=== PATIENT | female | born 1950 | race African-American/Black ===

== ENCOUNTER 2019-10-01 11:55 | Outpatient (CLI) | payer MEDICARE, OTHER, SELFPAY ==
[2019-10-01 12:47] LABS: Basophils Percent Auto 0.1 % (0.2-1.2); Eosinophils Absolute Auto 0.1 K/mm3 (0-0.3); Eosinophils Percent Auto 1.5 % (0-4.4); Hematocrit 41.1 % (37.0-47.0); Hemoglobin 13.1 g/dL (12.0-15.0); Immature Granulocyte Absolute 0.04 K/mm3 (0.00-0.031); Immature Granulocyte Percent A 0.6 % (0-0.5); Lymphocytes Absolute Auto 2.25 K/mm3 (0.9-3.2); Lymphocytes Percent Auto 33.6 % (18.3-44.2); Mean Corpuscular HGB Conc 31.9 g/dl (32-36); Mean Corpuscular Hemoglobin 27.7 pg (26-34); Mean Corpuscular Volume 86.9 fl (80-100); Monocytes Absolute Auto 0.6 K/mm3 (0.1-0.6); Monocytes Percent Auto 9.4 % (2.6-8.5); Neutrophils Absolute Auto 3.7 K/mm3 (1.3-6.7); Neutrophils Percent Auto 54.8 % (45.5-73.1); Platelet Count Result 315 k/mm3 (150-375); Red Blood Count 4.73 M/mm3 (4.2-5.4); Red Cell Distribution Width 13.8 % (11.5-14.5); White Blood Count 6.7 K/mm3 (4.5-10.0)
[2019-10-01 13:00] LABS: Alanine Aminotransferase 12 U/L (4-35); Albumin Level 4.4 g/dL (3.5-5.1); Alkaline Phosphatase 81 U/L (38-126); Aspartate Amino Transferase 20 U/L (14-36); Bilirubin,Total 0.5 mg/dL (0.2-1.3); Blood Urea Nitrogen 14 mg/dL (7-17); Calcium 9.4 mg/dL (8.4-10.2); Carbon Dioxide 29 mmol/L (22-30); Chloride 103 mmol/L (98-107); Cholesterol 249 mg/dL (0-200); Estimated Glomerular Filt Rate > 60; Glucose 97 mg/dL (65-105); HDL Direct 49 mg/dL; Potassium 3.1 mmol/L (3.4-5.0); Sodium 138 mmol/L (137-145); Triglycerides 146 mg/dL (<150)
[2019-10-01 13:11] LABS: LDL Cholesterol Direct 139 mg/dL
== END 2019-10-01 11:56 | disposition home or self-care (01) ==
PROVIDERS: PCP Family Medicine; Visit Provider Family Medicine
DX: I10 Essential (primary) hypertension (principal); E78.5 Hyperlipidemia, unspecified; D64.9 Anemia, unspecified; R53.83 Other fatigue; N39.0 Urinary tract infection, site not specified
CPT/HCPCS: 36415; 80053; 80061; 82607; 84443; 85025

== ENCOUNTER 2019-11-23 09:30 | Outpatient (CLI) | payer MEDICARE, OTHER, SELFPAY ==
--- NOTE | ~2019-11-23 | US_ITS ---
US abdomen complete EXAMINATION: US Abdomen Complete INDICATION: Generalized abdominal pain PROCEDURE: Realtime High Resolution abdomen ultrasound. COMPARISON: No prior studies for comparison FINDINGS: Gallbladder surgically absent. Common bile duct measures 5 mm. Liver echotexture within normal limits without focal mass. Pancreas within normal limits. Pancreati c tail is obscured by bowel gas. Spleen is not visualized due to bowel. Renal echotexture is within normal limits bilaterally without hydronephrosis, contour deforming mass or renal stone. Right kidney measures 9 cm. Left kidney measures 9 cm. Visualized aspects of the aorta and IVC are within normal limits. Portal vein is patent. No sonograph ic De La Torre's sign indicated by the technologist. IMPRESSION: 1: Unremarkable abdominal ultrasound post cholecystectomy. Reviewed, dictated and finalized at location A.
== END 2019-11-23 09:31 | disposition home or self-care (01) ==
LOC: ANHIMG 09:32
PROVIDERS: PCP Family Medicine; Visit Provider Family Medicine
DX: R10.30 Lower abdominal pain, unspecified (principal)
CPT/HCPCS: 76700

== ENCOUNTER 2019-12-23 01:50 | Outpatient (CLI) | payer MEDICARE, OTHER, SELFPAY ==
[2019-12-23 18:20] LABS: SARS-CoV-2 RNA PCR Negative
== END 2019-12-23 01:51 | disposition home or self-care (01) ==
LOC: ANHCOVIDDT 01:51
PROVIDERS: PCP Family Medicine; Visit Provider Internal Medicine Gastroenterology
DX: Z01.812 Encounter for preprocedural laboratory examination (principal); Z11.59 Encounter for screening for other viral diseases
CPT/HCPCS: 87635; C9803; U0003

== ENCOUNTER 2019-12-25 01:33 | Day surgery (SDC) | payer MEDICARE, OTHER, SELFPAY ==
[2019-12-18 11:44] VITALS: BMI 35.6
[2019-12-25 07:00] VITALS: BP 122/75; PULSE 83; RESP 18; TEMP 36.7; O2SAT 99
--- NOTE | 2019-12-25 07:17 | ECG_ITS ---
Measurements Intervals [place] Rate: 84 P: 63 IN: 158 QRS: -13 QRSD: 97 T: 23 QT: 387 QTc: 459 Interpretive Statements SINUS RHYTHM SUPRAVENTRICULAR TRIGEMINY QRS MORPHOLOGY CHANGES- NARROW COMPLEX AND RBBB VOLTAGE CRITERIA FOR LVH BASELINE ARTIFACT- I, III, AVR, AVL, AVF, V2 ABNORMAL ECG Electronically Signed On 12-25-2019 8:07:09 CDT by Ronaldo Rehman D.O.
[2019-12-25] MEDS: LACTATED RINGERS 1,000 ML 150 ML IV CONT (07:32)
--- NOTE | 2019-12-25 08:03 | WPDANESEPPF ---
Anes - Initial Pre Proc Eval Procedure: Operation Date: 12/25/19 08:30 Proposed Procedures p Esophagogastroduodenoscopy - Estuardo Bates MD Date/Time: 12/25/19 08:03 Surgeon: Estuardo Bates MD Pre Op Diagnosis: Epigastric pain, Gerd Patient Data Age: 69 Gender: F Height: 5 ft 5 in Weight: 99.8 kg Last Vital Signs Temp 98.1 F 12/25/19 07:00 Pulse 83 12/25/19 07:00 Resp 18 12/25/19 07:00 BP 122/75 12/25/19 07:00 Pulse Ox 99 12/25/19 07:00 Allergies Allergy/AdvReac Type Severity Reaction Status Date / Time Obzrddn-Ouz-Crk Reductase Allergy Unknown Unknown Verified 12/25/19 07:02 Inhibitor Home Medications Medication Instructions Recorded Confirmed Type aspirin 81 mg tablet,delayed 81 mg PO DAILY 04/01/19 12/25/19 History release cyanocobalamin (vitamin B-12) 1,000 mcg SUB-Q MONTHLY 04/01/19 12/25/19 History 1,000 mcg/mL injection solution losartan 100 1 tablet PO DAILY #90 tablet 04/04/19 12/25/19 Rx mg-hydrochlorothiazide 25 mg tablet pantoprazole 40 mg tablet,delayed 40 mg PO QAM #30 tablet 09/16/19 12/25/19 Rx release metoprolol succinate 25 mg 25 mg PO DAILY #90 tablet 10/01/19 12/25/19 Rx tablet,extended release 24 hr Patient hx anesthesia problems: none Family hx anesthesia problems: none PMFSH Past Medical History Medical History (Updated 12/25/19 @ 08:03 by Steve Duffy MD) Epigastric pain HLD (hyperlipidemia) Premature ventricular complex Vitamin B12 deficiency Surgical History Surgical History History of cholecystectomy Status post hysterectomy with oophorectomy Social History Social History (Updated 12/06/19 @ 08:51 by Anitha Gonzalez) Smoking status: Never smoker Second hand tobacco smoke exposure: No Smoking end date: 05/15/84 Alcohol intake: current Substance use: never Substance use type: does not use Gender identity (if verbalized by the patient): Female Sexual Orientation (if Verbalized by the Patient): Straight or Heterosexual Anes - Eval Final PreProcedure Day of Procedure 12/25/19 08:03 Patient weight: obese Heart: regular rate and rhythm Lungs: clear to auscultation Airway: Mallampati scale class II Neurological: alert and oriented Last oral intake: >/= 8 hours ASA classification: III Emergent: no Anesthetic plan: proceed Anesthesia type and monitoring: general GIVS and standard monitoring Informed Consent: The patient's anesthetic plan and its attendant risks and benefits were discussed with the patient/family/POA. Questions were solicited and answers provided to the satisfaction of the patient/family/POA.
--- NOTE | 2019-12-25 08:31 | P.HP_ITS ---
History of Present Illness History of Present Illness Consent: Risks, benefits, and alternatives have been discussed and questions answered. Patient agrees to proceed with procedure. Chief complaint: Epigastric pain, Gerd Narrative: Leonarda Jean is a 69 year old female With postprandial pains in the lower chest bilaterally. She had been on medication for acid reflux for many years but quit it due to concerns about possible long-term side effects. Recently she was placed on pantoprazole and feels a bit better. She had test for H pylori which was negative, however she was on PPI at that time. [facility] Past Medical History Medical History Epigastric pain HLD (hyperlipidemia) Premature ventricular complex Vitamin B12 deficiency Surgical History Surgical History History of cholecystectomy Status post hysterectomy with oophorectomy Family History Family History Father Family history of coronary artery disease Grandparent Family history of lung cancer Mother Patient's mother is in good health Other Diabetes mellitus Family history of cardiovascular disease Family history of malignant neoplasm Family history of malignant neoplasm of breast Social History Social History Smoking status: Never smoker Second hand tobacco smoke exposure: No Smoking end date: 05/15/84 Alcohol intake: current Substance use: never Substance use type: does not use Gender identity (if verbalized by the patient): Female Sexual Orientation (if Verbalized by the Patient): Straight or Heterosexual Meds Home Medications and Allergies Home Medications Medication Instructions Recorded Confirmed Type aspirin 81 mg tablet,delayed 81 mg PO DAILY 04/01/19 12/25/19 History release cyanocobalamin (vitamin B-12) 1,000 mcg SUB-Q MONTHLY 04/01/19 12/25/19 History 1,000 mcg/mL injection solution losartan 100 1 tablet PO DAILY #90 tablet 04/04/19 12/25/19 Rx mg-hydrochlorothiazide 25 mg tablet pantoprazole 40 mg tablet,delayed 40 mg PO QAM #30 tablet 09/16/19 12/25/19 Rx release metoprolol succinate 25 mg 25 mg PO DAILY #90 tablet 10/01/19 12/25/19 Rx tablet,extended release 24 hr Allergies Allergy/AdvReac Type Severity Reaction Status Date / Time Jtvhgav-Mxi-Bsi Reductase Allergy Unknown Unknown Verified 12/25/19 07:02 Inhibitor Vital Signs Vital Signs - 24 hr 12/25/19 07:00 Temperature 36.7 C Pulse Rate 83 Respiratory Rate 18 Blood Pressure 122/75 Pulse Oximetry 99 Exam Const: General: alert Orientation/consciousness: patient oriented x3 Resp: Auscultation: clear to auscultation bilaterally Cardio: Rhythm: regular rhythm GI: GI Palp: Yes Soft to palpation and No Tenderness to palpation present (GI) Neuro: General: patient oriented x3 Assessment and Plan Assessment and plan (1) Epigastric pain: Code(s): R10.13 - Epigastric pain Status: Acute Assessment and Plan: EGD with possible biopsy or dilatation or cautery.
[2019-12-25] MEDS: BENZOCAINE (*SP) 60 ML SPRAY CAN (HURRICAINE) 1 SPRAY MUCOUS MEM (08:43)
[2019-12-25 09:00] VITALS: BP 99/51; PULSE 57; RESP 18; O2SAT 98
[2019-12-25 09:10] VITALS: BP 107/65; PULSE 80; RESP 16; O2SAT 97
[2019-12-25 09:20] VITALS: BP 93/58; PULSE 64; RESP 18; O2SAT 96
== END 2019-12-25 09:44 | disposition home or self-care (01) ==
PROVIDERS: PCP Family Medicine; Visit Provider Internal Medicine Gastroenterology
PROC: 0DJ08ZZ Inspection of Upper Intestinal Tract, Via Natural or Artificial Opening Endoscopic (ICD-10-PCS; CPT 43235; principal; 2019-12-25 08:30)
DX: K21.9 Gastro-esophageal reflux disease without esophagitis (principal); K31.7 Polyp of stomach and duodenum; E78.5 Hyperlipidemia, unspecified; I49.3 Ventricular premature depolarization; E53.8 Deficiency of other specified B group vitamins; Z79.82 Long term (current) use of aspirin
CPT/HCPCS: 43235; 93005; J2704; J7120

== ENCOUNTER 2020-04-22 09:15 | Outpatient (CLI) | payer MEDICARE, OTHER, SELFPAY ==
[2020-04-22 09:46] LABS: Alanine Aminotransferase 16 U/L (4-35); Albumin Level 4.3 g/dL (3.5-5.1); Alkaline Phosphatase 91 U/L (38-126); Anion Gap 6 mmol/L (8-16); Aspartate Amino Transferase 27 U/L (14-36); Bilirubin,Total 0.4 mg/dL (0.2-1.3); Blood Urea Nitrogen 20 mg/dL (7-17); Calcium 9.7 mg/dL (8.4-10.2); Carbon Dioxide 32 mmol/L (22-30); Chloride 101 mmol/L (98-107); Estimated Glomerular Filt Rate > 60; Glucose 107 mg/dL (65-105); Potassium 3.3 mmol/L (3.4-5.0); Sodium 139 mmol/L (137-145)
[2020-04-22 10:15] LABS: Vitamin D 25 Hydroxy 43.8 ng/mL
[2020-04-22 10:51] LABS: Folic Acid 8.9 ng/mL (2.76->20)
== END 2020-04-22 09:16 | disposition home or self-care (01) ==
PROVIDERS: PCP Family Medicine; Visit Provider Physician Assistant
DX: E53.8 Deficiency of other specified B group vitamins (principal); E55.9 Vitamin D deficiency, unspecified; I10 Essential (primary) hypertension
CPT/HCPCS: 36415; 80053; 82306; 82607; 82746

== ENCOUNTER 2020-06-06 08:00 | Outpatient (CLI) | payer MEDICARE, SELFPAY ==
--- NOTE | ~2020-06-06 | MM_ITS ---
EXAMINATION: MM screening zoya BI w kevon HISTORY: Screening TECHNIQUE: Craniocaudal and mediolateral oblique 3-D tomosynthesis images were obtained and synthetic 2-D images were generated. CAD analysis was submitted and interpreted. COMPARISON: Comparison to multiple prior studies sequentially, with oldest reviewed study dated 02/06. BREAST PARENCHYMAL COMPOSITION: There are scattered areas of fibroglandular density. FINDINGS: Bilateral breast asymmetries are stable. There is no evidence of suspicious mass, calcifica tion, or architectural distortion to suggest malignancy in either breast. There has been no suspiciou s interval change. IMPRESSION: 1. No mammographic evidence of malignancy. 2. Recommend routine screening mammography in one year. BI-RADS Category 2: Benign finding(s). Reviewed, dictated and finalized at location A. DRILLER HELPER
== END 2020-06-06 08:01 | disposition home or self-care (01) ==
LOC: ANHIMG 08:06
PROVIDERS: PCP Family Medicine; Visit Provider Obstetrics & Gynecology
DX: Z12.31 Encounter for screening mammogram for malignant neoplasm of breast (principal)
CPT/HCPCS: 77063; 77067

== ENCOUNTER 2020-10-31 10:41 | Outpatient (CLI) | payer MEDICARE, SELFPAY ==
[2020-10-31 12:31] LABS: Hematocrit 40.1 % (37.0-47.0); Hemoglobin 12.7 g/dL (12.0-15.0); Mean Corpuscular HGB Conc 31.7 g/dl (32-36); Mean Corpuscular Hemoglobin 27.8 pg (26-34); Mean Corpuscular Volume 87.7 fl (80-100); Mean Platelet Volume 9.8 fl (7.4-10.4); Platelet Count Result 329 k/mm3 (150-375); Red Blood Count 4.57 M/mm3 (4.2-5.4); Red Cell Distribution Width 13.8 % (11.5-14.5); White Blood Count 6.9 K/mm3 (4.5-10.0)
[2020-10-31 12:46] LABS: Alanine Aminotransferase 11 U/L (4-35); Albumin Level 4.3 g/dL (3.5-5.1); Alkaline Phosphatase 76 U/L (38-126); Anion Gap 6 mmol/L (8-16); Aspartate Amino Transferase 29 U/L (14-36); Bilirubin,Total 0.4 mg/dL (0.2-1.3); Blood Urea Nitrogen 14 mg/dL (7-17); Calcium 9.6 mg/dL (8.4-10.2); Carbon Dioxide 31 mmol/L (22-30); Chloride 104 mmol/L (98-107); Cholesterol 230 mg/dL (0-200); Estimated Glomerular Filt Rate > 60; Glucose 94 mg/dL (65-105); HDL Direct 51 mg/dL; Potassium 3.4 mmol/L (3.4-5.0); Sodium 141 mmol/L (137-145); Triglycerides 112 mg/dL (<150)
[2020-10-31 12:56] LABS: LDL Cholesterol Direct 114 mg/dL
[2020-10-31 13:48] LABS: Folic Acid 11.3 ng/mL (2.76->20)
== END 2020-10-31 10:42 | disposition home or self-care (01) ==
LOC: ANHLAB 10:47
PROVIDERS: PCP Family Medicine; Visit Provider Family Medicine
DX: I10 Essential (primary) hypertension (principal); E78.2 Mixed hyperlipidemia; E53.8 Deficiency of other specified B group vitamins; R53.83 Other fatigue
CPT/HCPCS: 36415; 80053; 80061; 82607; 82746; 84443; 85027

== ENCOUNTER 2020-11-03 09:58 | Outpatient (CLI) | payer MEDICARE, SELFPAY ==
[2020-11-03 10:45] LABS: Add Urine Microscopic? YES; Appearance Urine Clear (Clear); Bilirubin Urine Negative (Negative); Blood Urine Negative (Negative); Color Urine Yellow (Yellow); Glucose Urine UA Negative (Negative); Ketones Urine Negative (Negative); Leukocyte Esterase Ur Trace LEU/UL (NEGATIVE); Mucus Urine Few /lpf; Nitrate Urine Negative (Negative); Protein Urine 1+ mg/dL (Negative); Specific Grav Ur 1.021 (1.001-1.035); Squamous Epithelial Cell Urine Few /hpf (Few); Urobilinogen Urine Negative mg/dL (<2.0)
[2020-11-06 09:38] LABS: Vitamin D 1,25 (OH)2 Total 49 pg/mL (18-72); Vitamin D2 1,25 (OH)2 9 pg/mL; Vitamin D3 1,25 (OH)2 40 pg/mL
== END 2020-11-03 09:59 | disposition home or self-care (01) ==
PROVIDERS: PCP Family Medicine; Visit Provider Family Medicine
DX: E55.9 Vitamin D deficiency, unspecified (principal); E78.2 Mixed hyperlipidemia; E53.8 Deficiency of other specified B group vitamins; R53.83 Other fatigue; I10 Essential (primary) hypertension
CPT/HCPCS: 36415; 81001; 82652

== ENCOUNTER 2021-05-12 10:41 | Outpatient (CLI) | payer MEDICARE, SELFPAY ==
[2021-05-12 11:41] LABS: Alanine Aminotransferase 13 U/L (4-35); Albumin Level 4.2 g/dL (3.5-5.1); Alkaline Phosphatase 84 U/L (38-126); Anion Gap 5 mmol/L (8-16); Aspartate Amino Transferase 23 U/L (14-36); Bilirubin,Total 0.4 mg/dL (0.2-1.3); Blood Urea Nitrogen 17 mg/dL (7-17); Calcium 9.4 mg/dL (8.4-10.2); Carbon Dioxide 31 mmol/L (22-30); Chloride 103 mmol/L (98-107); Estimated Glomerular Filt Rate > 60; Glucose 101 mg/dL (65-110); Potassium 3.6 mmol/L (3.4-5.0); Sodium 139 mmol/L (137-145)
[2021-05-12 12:44] LABS: Folic Acid 13.6 ng/mL (2.76->20)
== END 2021-05-12 10:42 | disposition home or self-care (01) ==
PROVIDERS: PCP Family Medicine; Visit Provider Family Medicine
DX: E53.8 Deficiency of other specified B group vitamins (principal); I10 Essential (primary) hypertension
CPT/HCPCS: 36415; 80053; 82607; 82746

== ENCOUNTER 2021-09-30 10:23 | Outpatient (CLI) | payer MEDICARE, SELFPAY ==
[2021-09-30 10:45] LABS: Hematocrit 40.2 % (37.0-47.0); Hemoglobin 12.9 g/dL (12.0-15.0); Mean Corpuscular HGB Conc 32.1 g/dl (32-36); Mean Corpuscular Hemoglobin 28.1 pg (26-34); Mean Corpuscular Volume 87.6 fl (80-100); Mean Platelet Volume 9.3 fl (7.4-10.4); Platelet Count Result 315 k/mm3 (150-375); Red Blood Count 4.59 M/mm3 (4.2-5.4); Red Cell Distribution Width 14.2 % (11.5-14.5); White Blood Count 8.3 K/mm3 (4.5-10.0)
[2021-09-30 10:52] LABS: Appearance Urine Cloudy (Clear); Bilirubin Urine Negative (Negative); Blood Urine 1+ (Negative); Color Urine Yellow (Yellow); Glucose Urine UA Negative (Negative); Ketones Urine Negative (Negative); Leukocyte Esterase Ur 2+ LEU/UL (NEGATIVE); Nitrate Urine Positive (Negative); Protein Urine Negative (Negative); Specific Grav Ur 1.015 (1.001-1.035); Urobilinogen Urine 0.2 mg/dL (<2.0)
[2021-09-30 10:57] LABS: Bacteria Urine Trace /hpf; Budding Yeast Urine Present /hpf; Mucus Urine Rare /lpf; Squamous Epithelial Cell Urine Few /hpf (Few); WBC Clumps Urine Present /HPF; WBC Urine >75 /hpf (0-3)
[2021-09-30 10:58] LABS: Add Urine Microscopic? YES
[2021-09-30 11:18] LABS: Alanine Aminotransferase 10 U/L (6-35); Albumin Level 4.3 g/dL (3.5-5.1); Alkaline Phosphatase 97 U/L (38-126); Anion Gap 9 mmol/L (8-16); Aspartate Amino Transferase 21 U/L (14-36); Bilirubin,Total 0.4 mg/dL (0.2-1.3); Blood Urea Nitrogen 14 mg/dL (7-17); Calcium 9.1 mg/dL (8.4-10.2); Carbon Dioxide 27 mmol/L (22-30); Chloride 102 mmol/L (98-107); Cholesterol 226 mg/dL (0-200); Estimated Glomerular Filt Rate > 60; Glucose 103 mg/dL (65-110); HDL Direct 54 mg/dL; Potassium 3.4 mmol/L (3.4-5.0); Sodium 138 mmol/L (137-145); Triglycerides 96 mg/dL (<150)
[2021-09-30 11:22] LABS: LDL Cholesterol Direct 107 mg/dL
[2021-09-30 12:17] LABS: Folic Acid 13.7 ng/mL (2.76->20)
== END 2021-09-30 10:24 | disposition home or self-care (01) ==
PROVIDERS: PCP Family Medicine; Visit Provider Family Medicine
DX: E78.5 Hyperlipidemia, unspecified (principal); I10 Essential (primary) hypertension; E53.8 Deficiency of other specified B group vitamins; Z00.00 Encounter for general adult medical examination without abnormal findings; E55.9 Vitamin D deficiency, unspecified
CPT/HCPCS: 36415; 80053; 80061; 81001; 82607; 82746; 84443; 85027

== ENCOUNTER 2022-01-27 08:48 | Outpatient (CLI) | payer MEDICARE, SELFPAY ==
--- NOTE | ~2022-01-27 | MM_ITS ---
EXAMINATION: MM screening zoya BI w kevon HISTORY: Screening mammogram TECHNIQUE: Craniocaudal and mediolateral oblique 3-D tomosynthesis images were obtained and synthetic 2-D images were generated. CAD analysis was submitted and interpreted. COMPARISON: 06/06/2020, 05/04/2018, 05/12/2016 bilateral screening mammogram examinations BREAST PARENCHYMAL COMPOSITION: There are scattered areas of fibroglandular density. FINDINGS: A limited benign-appearing calcification. There is no evidence of suspicious mass, calcific ation, or architectural distortion to suggest malignancy in either breast. There has been no suspicio us interval change. IMPRESSION: 1. No mammographic evidence of malignancy. 2. Recommend routine screening mammography in one year. BI-RADS Category 2: Benign finding(s). Reviewed, dictated and finalized at location A.
--- NOTE | ~2022-01-27 | DEXA_ITS ---
Bone Density Report Name: ELIZABETH SHORE V Age: 71 Sex: Female Ethnicity: Black Date of : 1950 Indication: postmenopausal; screening for osteoporosis; prior fracture; hysterectomy; Referring Provider: ROBIN VAZQUEZ Study: Bone densitometry was performed. Exam Date: January 27, 2022 Accession number: [id number] Bone Density: Region BMD T-score Z-score Classification AP Spine(L1-L4) 1.162 1.0 2.4 Normal Femoral Neck (Left) 0.784 -0.6 0.2 Normal Total Hip (Left) 0.827 -0.9 -0.2 Normal Femoral Neck (Right) 0.767 -0.7 0.1 Normal Total Hip (Right) 0.798 -1.2 -0.4 Osteopenia Total Hip Mean 0.813 -1.1 -0.3 Osteopenia World Health Organization criteria for BMD impression classify patients as: Normal (T-score at or above -1.0), Osteopenia (T-score between -1.0 and -2.5), or Osteoporosis (T-score at or below -2.5). 10-year Fracture Risk(1): Major Osteoporotic Fracture 5.6% Hip Fracture 0.4% Reported Risk Factors: [place] ([place]), Neck BMD=0.767, BMI=35.3, previous fracture (1) FRAX(R) Version 3.08. Fracture probability calculated for an untreated patient. Fracture probability may be lower if the patient has received treatment. Previous Exams: Region Exam Age BMD T-score BMD Change BMD Change Date g/cm2 vs Baseline vs Previous AP Spine (L1-L4) 01/27/2022 71 1.162 1.0 0.002 (0.2%)# -0.059 (-4.8%) 11/02/2018 68 1.220 1.6 0.061 (5.3%)# 0.065 (5.6%)* 05/12/2016 65 1.156 1.0 -0.004 (-0.3%) -0.004 (-0.3%) 12/04/2013 63 1.159 1.0 Total Hip(Left) 01/27/2022 71 0.827 -0.9 -0.101 (-10.8% -0.053 (-6.1%) 11/02/2018 68 0.881 -0.5 -0.047 (-5.1%) -0.017 (-1.9%) 05/12/2016 65 0.898 -0.4 -0.030 (-3.3%) -0.030 (-3.3%) 12/04/2013 63 0.928 -0.1 Total Hip(Right) 01/27/2022 71 0.798 -1.2 -0.095 (-10.6% -0.116 (-12.6% 11/02/2018 68 0.914 -0.2 0.020 (2.3%)# 0.001 (0.1%) 05/12/2016 65 0.913 -0.2 0.019 (2.1%)# 0.019 (2.1%)# 12/04/2013 63 0.894 -0.4 *Denotes significance at 95% confidence level, LSC for AP Spine = 0.022 g/cm2, LSC for Total Hip = 0.027 g/cm2 # Denotes dissimilar scan types or analysis methods Clinical Information Provided by Patient: Has had a low trauma fracture Has used the following medications: Vitamin D Has the following medical conditions: Hysterectomy Patient maximum height was 65 No regular weight bearing exercise Onset of menses at age 18 Number of children 0
== END 2022-01-27 08:49 | disposition home or self-care (01) ==
PROVIDERS: PCP Family Medicine; Visit Provider Obstetrics & Gynecology
DX: Z12.31 Encounter for screening mammogram for malignant neoplasm of breast (principal); Z78.0 Asymptomatic menopausal state; M85.851 Other specified disorders of bone density and structure, right thigh
CPT/HCPCS: 77063; 77067; 77080

== ENCOUNTER 2022-03-10 08:43 | Outpatient (CLI) | payer MEDICARE, SELFPAY ==
--- NOTE | ~2022-03-10 | NM_ITS ---
EXAMINATION: NM edis stress w perfusion DATE: 03/10/2022 13:01 CDT INDICATION: Preprocedural cardiovascular examination TECHNIQUE: Rest images were obtained following intravenous administration of 9.8 mCi Tc99m tetrofosmi n (Myoview). The patient was infused intravenously with Lexiscan (regadenoson). Then, 32 mCi Tc99m te trofosmin (Myoview) was administered intravenously, and stress images were obtained. Data was reconst ructed into short axis and horizontal and vertical long axis SPECT images. Gated SPECT images were al so obtained. COMPARISON: None. FINDINGS: There is no definite reversible or fixed perfusion abnormality to suggest ischemia or infar ction. There is no segmental wall motion abnormality. Left ventricular ejection fraction measures 7 3%. IMPRESSION: 1. No definite ischemia or infarct. 2. Normal left ventricular ejection fraction measuring 73%. Reviewed, dictated and finalized at location B.
--- NOTE | 2022-03-10 08:47 | EST_ITS ---
Patient Info Name: Leonarda Jean Age: 71 years : 1950 Gender: Female Ht: 64 in Wt: 210 lbs BSA: 2.12 m2 Exam Date: 03/10/2022 10:19 AM Exam Location: [facility] Stress Patient Status: Outpatient Admit Date: 03/10/2022 Staff Ordering Physician: Ronaldo Rehman DO Attending Provider: Ronaldo Rehman DO Exercise Technologist: Ness Wesley RDCS Exercise Physician: Ronaldo Rehman DO Exam Type: CA stress edis w NM Study Info Indications Z01.810 - Encounter for preprocedural cardiovascular examination A regadenoson stress test was performed. Summary 1. 1. Negative lexiscan stress test for ischemic ST changes by ECG criteria. 2. 2. Stable hemodynamics throughout the test. 3. 3. Nuclear scan to follow and will be reported separately. Please correlate with it. 4. 4. Patient informed of the above results. Protocol: Lexiscan Stress ECG Details Stage: REST Duration (min): 0 min : 11 sec HR (bpm): 56 SBP (mmHg): --- DBP (mmHg): --- Stage: REST Duration (min): 1 min : 17 sec HR (bpm): 65 SBP (mmHg): 115 DBP (mmHg): 91 Stage: REST Duration (min): 5 min : 46 sec HR (bpm): 62 SBP (mmHg): 115 DBP (mmHg): 91 Stage: STAGE 1 Duration (min): 0 min : 59 sec HR (bpm): 86 SBP (mmHg): 94 DBP (mmHg): 65 Stage: RECOVERY Duration (min): 1 min : 0 sec HR (bpm): 90 SBP (mmHg): 96 DBP (mmHg): 62 Stage: RECOVERY Duration (min): 2 min : 0 sec HR (bpm): 89 SBP (mmHg): 96 DBP (mmHg): 62 Stage: RECOVERY Duration (min): 3 min : 0 sec HR (bpm): 86 SBP (mmHg): 99 DBP (mmHg): 62 Stage: RECOVERY Duration (min): 4 min : 0 sec HR (bpm): 89 SBP (mmHg): 99 DBP (mmHg): 62 Stage: RECOVERY Duration (min): 5 min : 0 sec HR (bpm): 88 SBP (mmHg): 100 DBP (mmHg): 64 Stage: RECOVERY Duration (min): 6 min : 0 sec HR (bpm): 84 SBP (mmHg): 100 DBP (mmHg): 64 Stage: RECOVERY Duration (min): 7 min : 0 sec HR (bpm): 82 SBP (mmHg): 112 DBP (mmHg): 65 Stage: RECOVERY Duration (min): 7 min : 3 sec HR (bpm): 81 SBP (mmHg): 112 DBP (mmHg): 65 Rest HR: 62 bpm Peak HR: 92 bpm Rest Sys BP: 115 mmHg Peak Sys BP: 112 mmHg Max Pred HR: 151 bpm % Max Pred HR: 61 % Target HR: 128 bpm Max RPP: 10,304 bpm*mmHg Termination Reason: Completed protocol Cardiac Symptoms: Flushed Total Time: 1 min : 0 sec Rest Quinones BP: 91 mmHg Peak Quinones BP: 65 mmHg Total Dose: 0.4 mg Resting ECG Sinus rhythm. Stress ECG No ST changes. Arrhythmias None. Report Signatures
== END 2022-03-10 08:44 | disposition home or self-care (01) ==
PROVIDERS: PCP Family Medicine; Visit Provider Internal Medicine Cardiovascular Disease
DX: Z01.810 Encounter for preprocedural cardiovascular examination (principal)
CPT/HCPCS: 78452; 93017; A9502; J2785

== ENCOUNTER 2022-03-14 07:42 | Outpatient (CLI) | payer MEDICARE, SELFPAY ==
--- NOTE | 2022-03-28 12:23 | WPDSLEEPSTUD ---
Sleep Study Date of Study: 03/14/22 Ordering Provider: Ronaldo Rehman DO Interpreting Physician: Nicolasa Tracy MD Sleep Study Type: Split Polysomnogram Height: 1.65 m Weight: 92.986 kg Body Mass Index: 34.1 Neck Circumference (inches): 16.5 Blevins: 2 Reason for Sleep Study Non restorative sleep, excessive daytime sleepiness Sleep History Leonarda Jean is an 71 year-old female with poor sleep. After sleeping for 2 hours, she wakes up. Sleep is not restorative. She does not awaken from sleep feeling short of breath, does not awaken at night with heartburn, belching or coughing. She does not snore loudly although she indicates she is not sure if she snores at all. She rarely has trouble sleeping with a cold. She does not wake up gasping for breath at night. She does not have breathing problems at night observed by others. She does not sweat excessively at night. She occasionally notices her heart pounding or beating irregularly at night. She rarely falls asleep during the day, rarely falls asleep involuntarily, never falls asleep while driving. She does not have loss of muscle tone with strong emotion. She does not have daytime difficulties due to excessive sleepiness. She does not feel paralyzed on waking or falling asleep. She does not have vivid dreamlike scenes on waking or falling asleep. She occasionally feels afraid to go to sleep. She occasionally has nightmares. She occasionally remembers her dreams. She constantly has racing thoughts. She does not feel sad or depressed. She frequently feels anxious. She does not have muscular tension. She rarely notices parts of her body jerking. She rarely kicks at night. She occasionally has crawling aching feelings in her legs. She rarely has any kind of leg pain at night. She occasionally has morning jaw pain, has known temporomandibular joint problems. She occasionally grinds her teeth during sleep. She rarely is bothered by pain during the day, rarely awakened by pain at night. She rarely wakes up feeling stiff in the morning with sore or achy muscles. her medical comorbidities include hypertension, heart disease, PVCs. Normal bedtime is about 1:00 a.m. although she gets in bed by 9:00 p.m. It wakes quite a while for her to fall asleep, waking 2-3 times to go to the bathroom. While wake at night, she may check her doors and look out at the parking lot. She may stay awake for up to 30 minutes. She wakes in the morning at 6:30 a.m.. She estimates getting between 4 and 6 hours of sleep at night. She does not take naps in the day. She feels better in the afternoon or evening compared to mornings. she rarely awakens feeling refreshed Habits: Never smoked. Caffeine 6 oz a day. No alcohol or recreational drugs. [facility] Past Medical History Medical History Epigastric pain Gastric polyp Gastric polyps History of stress test HLD (hyperlipidemia) Premature ventricular complex Vitamin B12 deficiency Surgical History Surgical History History of cholecystectomy History of shoulder surgery Left S/P wrist surgery Right Status post hysterectomy with oophorectomy Family History Family History Father Family history of coronary artery disease Grandparent Family history of lung cancer Mother Patient's mother is in good health Other Diabetes mellitus Family history of cardiovascular disease Family history of malignant neoplasm Family history of malignant neoplasm of breast Social History Social History Smoking status: Former smoker Second hand tobacco smoke exposure: No Alcohol intake: current Alcohol use details: social drinker Substance use: never Substance use type: does not use Gender identity (if verbalized b
[2022-03-31 18:55] VITALS: BMI 34.1
--- NOTE | 2022-06-23 15:29 | SLEEP ---
pt stated she had not been contacted by dme. kathy has contacted pt see attached ppr. or scanned sheet under other fac rec
== END 2022-03-15 07:02 | disposition home or self-care (01) ==
PROVIDERS: PCP Family Medicine; Visit Provider Internal Medicine Cardiovascular Disease
DX: G47.33 Obstructive sleep apnea (adult) (pediatric) (principal); G47.10 Hypersomnia, unspecified; Z68.34 Body mass index [BMI] 34.0-34.9, adult
CPT/HCPCS: 95811

== ENCOUNTER 2022-03-15 07:40 | Outpatient (CLI) | payer MEDICARE, SELFPAY ==
[2022-03-15 08:13] LABS: Hematocrit 43.4 % (37.0-47.0); Hemoglobin 13.4 g/dL (12.0-15.0)
[2022-03-15 08:21] LABS: Albumin Level 4.3 g/dL (3.5-5.1); Estimated Glomerular Filt Rate > 60; Glucose 97 mg/dL (65-110)
[2022-03-15 08:26] LABS: Urine Cotinine NEGATIVE
[2022-03-15 11:26] LABS: Hemoglobin A1C 5.7 % (<5.7)
== END 2022-03-15 07:41 | disposition home or self-care (01) ==
LOC: ANHLAB 07:44
PROVIDERS: PCP Family Medicine; Visit Provider Orthopaedic Surgery
DX: M16.11 Unilateral primary osteoarthritis, right hip (principal); E78.5 Hyperlipidemia, unspecified; Z79.899 Other long term (current) drug therapy
CPT/HCPCS: 80307; 82040; 82565; 82947; 83036; 85014; 85018

== ENCOUNTER 2022-05-04 11:07 | Outpatient (CLI) | payer MEDICARE, SELFPAY ==
[2022-05-04 12:36] LABS: Albumin Level 4.5 g/dL (3.5-5.1)
[2022-05-04 12:38] LABS: Basophils Percent Auto 0.2 % (0.2-1.2); Eosinophils Absolute Auto 0.1 K/mm3 (0-0.3); Hematocrit 42.2 % (37.0-47.0); Hemoglobin 13.1 g/dL (12.0-15.0); Immature Granulocyte Absolute 0.04 K/mm3 (0.00-0.031); Immature Granulocyte Percent A 0.5 % (0-0.5); Lymphocytes Percent Auto 20.7 % (18.3-44.2); Mean Corpuscular Volume 90.2 fl (80-100); Mean Platelet Volume 9.4 fl (7.4-10.4); Monocytes Absolute Auto 0.6 K/mm3 (0.1-0.6); Neutrophils Absolute Auto 5.8 K/mm3 (1.3-6.7); Neutrophils Percent Auto 70.6 % (45.5-73.1); Platelet Count Result 329 k/mm3 (150-375); Red Blood Count 4.68 M/mm3 (4.2-5.4); Red Cell Distribution Width 14.5 % (11.5-14.5); White Blood Count 8.2 K/mm3 (4.5-10.0)
[2022-05-04 12:39] LABS: Anion Gap 8 mmol/L (8-16); Blood Urea Nitrogen 19 mg/dL (7-17); Calcium 9.2 mg/dL (8.4-10.2); Carbon Dioxide 30 mmol/L (22-30); Chloride 100 mmol/L (98-107); Estimated Glomerular Filt Rate 60; Glucose 104 mg/dL (65-110); Sodium 138 mmol/L (137-145)
[2022-05-04 13:38] LABS: Urine Cotinine NEGATIVE
== END 2022-05-04 11:08 | disposition home or self-care (01) ==
PROVIDERS: Anesthesiology; PCP Family Medicine; Visit Provider Orthopaedic Surgery
DX: M16.11 Unilateral primary osteoarthritis, right hip (principal); Z79.899 Other long term (current) drug therapy
CPT/HCPCS: 80048; 80307; 82040; 85025; 87081

== ENCOUNTER 2022-05-28 11:46 | Outpatient (CLI) | payer MEDICARE, SELFPAY ==
[2022-05-28 12:23] LABS: Anion Gap 4 mmol/L (8-16); Blood Urea Nitrogen 11 mg/dL (7-17); Calcium 8.9 mg/dL (8.4-10.2); Carbon Dioxide 29 mmol/L (22-30); Chloride 108 mmol/L (98-107); Estimated Glomerular Filt Rate > 60; Glucose 94 mg/dL (65-110); Magnesium 2.1 mg/dL (1.6-2.3); Potassium 3.9 mmol/L (3.4-5.0); Sodium 141 mmol/L (137-145)
== END 2022-05-28 11:47 | disposition home or self-care (01) ==
PROVIDERS: PCP Family Medicine; Visit Provider Internal Medicine Cardiovascular Disease
DX: I10 Essential (primary) hypertension (principal)
CPT/HCPCS: 36415; 80048; 83735

== ENCOUNTER 2022-06-03 13:56 | Inpatient (IN) | payer MEDICARE, SELFPAY ==
[2022-05-04 10:50] VITALS: BP 110/64; PULSE 72; RESP 18; TEMP 36.7; O2SAT 100; BMI 35.6
--- NOTE | 2022-05-04 10:50 | PC.NURSE ---
PRE-OP INSTRUCTIONS, PLEASE READ CAREFULLY Report to the Outpatient Waiting Room, entrance under the green pavilion located off [facility], at time _0630_ on date _06/02/22_. Planned Procedure Time: _0830_. PACK A SMALL OVERNIGHT BAG AND LEAVE IN THE CAR Time changes happen often and if your time is changed the preop area will call you the afternoon before. - You and your visitor will be asked to self-screen and do not enter if you have any COVID symptoms. - Only one visitor is requested with a max of two and NO children visitors are allowed at this time. - The patient visitor may be requested to leave or wait in car when not with patient due to distancing restrictions. - A mask is required within the hospital. -VISITING HOURS 8AM-8PM Patients may have clear liquids (water, carbonated beverages, clear teas, apple juice) until 3 hours prior to surgery (0530 AM) with a maximum of 20 ounces. - No food from midnight until time of surgery Take the following medications with a SIP of water the morning of surgery: _FLECAINIDE, METOPROLOL_ Medications to discontinue per DR. HOGAN - _ALEVE 7 DAYS PRIOR TO SURGERY, Date to take last dose 05/25/22_ Please no make-up, nail lithuanian, hairspray, perfume, deodorant, or body powder the day of surgery. No jewelry (including any body piercings) or valuables the day of surgery, leave them at home. Please take a shower or bath the night before, or the morning of, surgery with an antibacterial soap. Wear comfortable, loose fitting clothing. - Jewelry must be removed prior to entering the operating room. Rings and piercings that are not removed may be cut off. - The hospital will not accept responsibility for valuables. - Please leave all valuables, including medications, at home the day of surgery. If you are going home after surgery, a licensed driver education instructor must drive you home. - NO public transportation without another adult if you receive anesthesia. - We recommend that an adult stay with you for 24 hours following discharge. - We also recommend that you do not drive, make important decision, drink alcoholic beverages, or take any drugs that were not prescribed by your health care provider for at least 24 hours after your discharge time. Follow any additional instructions given to you from your surgeon. If you or anyone in your household have experienced Covid symptoms in the past week, please notify your surgeon or the nurse liaison at the phone number below for possible testing. Instructions given to _PATIENT_and asked if any additional questions and then verbalized understanding. Patient advised to call surgeon office or pre surgery nurse liaison [phone] if any additional questions.
[2022-06-02] VITALS (17 sets, daily range): BP systolic 105–131; BP diastolic 56–75; PULSE 71–97; RESP 14–20; TEMP 36.4–37.1; O2SAT 91–100
[2022-06-02] MEDS: ACETAMINOPHEN 500 MG TABLET 1000 MG PO (06:53)
[2022-06-02] MEDS: LACTATED RINGERS 1,000 ML 30 ML IV CONT ×2 (07:15→10:35)
--- NOTE | 2022-06-02 07:21 | WPDANESEPPF ---
Anes - Initial Pre Proc Eval Procedure: Operation Date: 06/02/22 08:30 Proposed Procedures p Right Total Hip Arthroplasty - Aryan Mary MD Date/Time: 06/02/22 07:21 Surgeon: Aryan Mary MD Pre Op Diagnosis: primary oa right hip Patient Data Age: 71 Gender: F Height: 1.63 m Weight: 94.3 kg Last Vital Signs Temp 36.7 C 05/04/22 10:50 Pulse 72 05/04/22 10:50 Resp 18 05/04/22 10:50 BP 110/64 05/04/22 10:50 Pulse Ox 100 05/04/22 10:50 O2 Del Method Room Air 05/04/22 10:50 Allergies Allergy/AdvReac Type Severity Reaction Status Date / Time No Known Allergies Allergy Verified 06/02/22 06:54 Home Medications Medication Instructions Recorded Confirmed Type cyanocobalamin (vitamin B-12) 1,000 mcg subcut MONTHLY 04/01/19 06/02/22 History 1,000 mcg/mL injection solution cholecalciferol (vitamin D3) 25 25 mcg PO DAILY 01/12/21 06/02/22 History mcg (1,000 unit) capsule metoprolol succinate 25 mg See Rx Instructions .Route 01/14/22 06/02/22 Rx tablet,extended release 24 hr .COMPLEX #90 tabs flecainide 100 mg tablet 100 mg PO Q12H #60 tabs 02/17/22 06/02/22 Rx naproxen sodium 220 mg tablet 220 mg PO BID PRN Pain 05/04/22 06/02/22 History (Aleve) losartan 100 mg tablet 100 mg PO DAILY #90 tabs 05/19/22 06/02/22 Rx Patient hx anesthesia problems: post op nausea/vomiting Family hx anesthesia problems: none Results Review: All pre-operative results and documents have been reviewed as part of the pre-operative evaluation. [facility] Past Medical History Medical History Epigastric pain Gastric polyp Gastric polyps History of stress test HLD (hyperlipidemia) Premature ventricular complex Vitamin B12 deficiency Surgical History Surgical History History of cholecystectomy History of shoulder surgery Left S/P wrist surgery Right Status post hysterectomy with oophorectomy Family History Family History Father Family history of coronary artery disease Grandparent Family history of lung cancer Mother Patient's mother is in good health Other Diabetes mellitus Family history of cardiovascular disease Family history of malignant neoplasm Family history of malignant neoplasm of breast Social History Social History Smoking status: Former smoker Tobacco type: cigarettes Second hand tobacco smoke exposure: No Additional smoking assessment comments: STATES SNEAKING CIGARETTES A TEEN - DENIES ALL FORMS OF TOBACCO USE Alcohol intake: current Alcohol use details: 2/MONTH Substance use: never Substance use type: does not use Lack of Transportation: No Lack of Food: Never True Current Housing: I Have Housing Concerned About Future Housing: No Difficulty Paying Gas/Electric Bills: No Difficulty Paying for Meds: No Currently Unemployed: No Education: Bachelor's Degree Difficulty w/ Childcare or Family Care: No Living arrangements: alone Gender identity (if verbalized by the patient): Female Sexual Orientation (if Verbalized by the Patient): Straight or Heterosexual Spiritual care concerns: No Anes - Eval Final PreProcedure Day of Procedure 06/02/22 07:21 Patient weight: obese Heart: regular rate and rhythm Lungs: clear to auscultation Airway: Mallampati scale class II Neurological: alert and oriented Last oral intake: >/= 8 hours ASA classification: III Emergent: no Anesthetic plan: proceed Anesthesia type and monitoring: general ETT and standard monitoring Results Review: All pre-operative results and documents have been reviewed as part of the pre-operative evaluation. Informed Consent: The patient's anesthetic plan and its attendant risks and benefits were discussed wi
--- NOTE | 2022-06-02 07:36 | WPDHPUPDATE1 ---
History and Physical Update Update Date/Time: 06/02/22 07:36 History and Physical has been reviewed, including an updated exam of the patient. There are NO changes in the patient's condition. Risks, benefits, and alternatives have been discussed and questions answered. Patient agrees to proceed with procedure.
[2022-06-02] MEDS: ceFAZolin 2 GM/D5W 50 ML 2 GM/50 ML BAG IVPB ×2 (08:20→15:26)
[2022-06-02] MEDS: TRANEXAMIC ACID 1,000MG/ISO100 1,000 MG/100 ML BAG 200 MG IVPB (08:20)
--- NOTE | 2022-06-02 10:44 | W.PM.PROC2 ---
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 Satisfactory bone quality. Description of Procedure The patient was given preoperative antibiotics. A general anesthetic was administered. The patient was carefully placed in the lateral decubitus position on the PEG board. The shoulders and hips were carefully positioned for component and leg length positioning reference. The hip was prepped and draped in the usual sterile fashion. A longitudinal incision was created over the posterior aspect of the greater trochanter. Careful dissection was brought down through the deep fascia with electrocautery. A minimally invasive optimized posterior approach to the hip was performed. The short external rotators and capsule were taken down in an L-shaped capsulotomy. The tissue was tagged for later repair using number 2 high strength suture. The femoral neck was measured and taken in situ. The femoral head was removed. The acetabulum was carefully exposed. The inferior capsule was released. The labrum was resected. The acetabulum was sequentially reamed to 1 over the intended cup size. The cup was impacted into position with excellent press-fit. Typical anatomic landmarks, including the bony contact points as well as the inferior transverse acetabular ligament were used to confirm cup positioning with preoperative templating. Attention was turned to the femur, which was carefully exposed. The hip was reamed and then broached sequentially. Excellent press-fit was obtained with the broach. The hip was trialed. Measurements were utilized, including the lesser trochanter as well as the center of the femoral head and the tip of the trochanter, and excellent assessment of the offset and leg lengths were confirmed. The real component was impacted into position. Trialing confirmed appropriate leg length and offset with soft tissue balancing as well apparent feel of the leg, both at the knee and the heel. Soft tissues were assessed using the the iliotibial band. Reduction of the posterior capsule and external rotators were also used as a secondary assessment. The hip was copiously irrigated with pulsatile lavage antibiotic solution periodically throughout the procedure. The real components were then assembled and reduced. The hip was stable throughout typical maneuvers, including extension, external rotation to 70 degrees, the position of sleep as well as flexion to 90 degrees with internal rotation past 45 degrees. The shake test confirmed stability without impingement. Osteophytes were removed as necessary. The short external rotators and capsule were repaired back to the posterior trochanter through drill holes. The deep fascia was repaired with running number 2 Quill suture, followed by 0 Stratafix suture and 2-0 Stratafix suture in the dermis. Steri-Strips were placed on the skin, followed by a sterile silver occlusive dressing. There were no complications. Meticulous hemostasis was maintained with the AquaMantys device. The patient was brought to the recovery room in stable condition. There were no complications. Physician production administrative assistant, Mallory Cruz PA-C, required for surgery; including patient positioning, draping, tissue retraction, maintaining instrument position, hip dislocation/ relocation, wound closure, and dressing placement. Implants The Accolade II hip stem, 127 degree size 4 , was utilized with excellent press-fit. The 52 mm Trident II acetabular component was impacted with excellent press-fit stability. 10 degree elevated polyethylene liner. The -2.5, 36 mm Biolox ceramic femoral head was utilized. Estimated Blood Loss -300.0 Drains No Packing No Patho
[2022-06-02] MEDS: fentaNYL CITRATE INJ (*CRX) 100 MCG/2 ML VIAL 25 MCG IV PUSH ×4 (11:10→11:55)
--- NOTE | 2022-06-02 11:30 | SUR.PHASEI ---
Patient meets PACU discharge criteria, unit bed unavailable at this time. Patient placed in extended recovery status.
--- NOTE | 2022-06-02 12:28 | ADMGEN ---
This patient, Leonarda Jean, was admitted to 2 Medical Room 240-. Patient/family oriented to hospital policies and general routines including ID bracelet, bed and alarms, visiting hours, pain management, procedures, bathroom and other care routines, personal items, smoking policy, room service/diet, and visiting hours. Information on how to activate the Rapid Response Team has been discussed. Patient/Family are encouraged to report perceived risks to care and to ask questions if they do not understand what they are told or what they should do.
[2022-06-02] MEDS: ASPIRIN 81 MG ENTERIC TABLET PO (15:24)
[2022-06-02] MEDS: MELOXICAM 7.5 MG TABLET PO (15:25)
[2022-06-02] MEDS: FAMOTIDINE 20 MG TABLET PO ×2 (15:25→21:08)
[2022-06-02] MEDS: METOPROLOL SUCCINATE EXT REL 25 MG TABCR PO (17:55)
[2022-06-02] MEDS: FLECAINIDE ACETATE 100 MG TABLET PO (21:08)
[2022-06-03] VITALS (19 sets, daily range): BP systolic 70–120; BP diastolic 38–70; PULSE 59–92; RESP 16–20; TEMP 36.3–37.4; O2SAT 97–100
--- NOTE | ~2022-06-03 | XR_ITS ---
AP view of the pelvis and AP view of the right hip Clinical history: Pain COMPARISON: 02/25/2022 Findings: No acute fracture or dislocation is seen. There is severe right hip joint osteophytosis, wi th marked joint space narrowing, flattening/remodeling of the right humeral head and reactive scleros is. There is mild degenerative change of the left hip joint. Soft tissues are unremarkable. Impression: No acute fracture. Severe right hip joint osteoarthritis, similar to prior exam. Mild right hip joint osteophytes arthritis. Reviewed, dictated and finalized at location M. ICAL THERAPIST ASSISTANT Impression: No acute fracture. Severe right hip joint osteoarthritis, similar to prior exam. Mild right hip joint osteophytes arthritis.
--- NOTE | ~2022-06-03 | XR_ITS ---
Right Hip Technique: AP and lateral views Clinical History: Status post hip arthroplasty Findings: Patient is status post right hip arthroplasty. Orthopedic hardware alignment appears anatom ic. No hardware complication is evident. Subcutaneous emphysema and swelling is likely postoperative in nature. No acute osseous fracture is seen. Impression: Status post total right hip arthroplasty, without evidence of hardware complication. Reviewed, dictated and finalized at location . ER SAMPLE MAKER Impression: Status post total right hip arthroplasty, without evidence of hardware complica tion.
[2022-06-03] MEDS: ceFAZolin 2 GM/D5W 50 ML 2 GM/50 ML BAG IVPB ×2 (01:12→09:05)
[2022-06-03] MEDS: LACTATED RINGERS 500 ML 999 ML IV CONT ×2 (04:58→06:08)
[2022-06-03 06:23] LABS: Basophils Percent Auto 0.3 % (0.2-1.2); Hematocrit 26.4 % (37.0-47.0); Hemoglobin 8.2 g/dL (12.0-15.0); Immature Granulocyte Absolute 0.07 K/mm3 (0.00-0.031); Immature Granulocyte Percent A 0.5 % (0-0.5); Lymphocytes Percent Auto 6.5 % (18.3-44.2); Mean Corpuscular HGB Conc 31.1 g/dl (32-36); Mean Corpuscular Hemoglobin 28.4 pg (26-34); Mean Corpuscular Volume 91.3 fl (80-100); Mean Platelet Volume 9.5 fl (7.4-10.4); Monocytes Absolute Auto 1.3 K/mm3 (0.1-0.6); Monocytes Percent Auto 9.2 % (2.6-8.5); Neutrophils Absolute Auto 11.6 K/mm3 (1.3-6.7); Neutrophils Percent Auto 83.5 % (45.5-73.1); Platelet Count Result 230 k/mm3 (150-375); Red Blood Count 2.89 M/mm3 (4.2-5.4); Red Cell Distribution Width 14.6 % (11.5-14.5); White Blood Count 13.9 K/mm3 (4.5-10.0)
[2022-06-03 06:39] LABS: Anion Gap 1 mmol/L (8-16); Blood Urea Nitrogen 18 mg/dL (7-17); Calcium 7.7 mg/dL (8.4-10.2); Carbon Dioxide 26 mmol/L (22-30); Chloride 104 mmol/L (98-107); Estimated CRCL calculation 52 ml/min; Estimated Glomerular Filt Rate > 60; Glucose 107 mg/dL (65-110); Potassium 3.7 mmol/L (3.4-5.0); Sodium 131 mmol/L (137-145)
--- NOTE | 2022-06-03 07:47 | PC.NURSE ---
Called Dr. Mary @ [phone] to notify him of pt's BP still being low after 2 boluses of LR. Provider did not respond to initial call, so I left a voicemail.
--- NOTE | 2022-06-03 08:19 | PCPTNOTE ---
Attempted to see patient for PT, however RN advised therapy to wait to see patient this morning due to patient having very low blood pressure at this time.
[2022-06-03 08:20] LABS: Hematocrit 25.2 % (37.0-47.0); Hemoglobin 7.8 g/dL (12.0-15.0)
[2022-06-03] MEDS: ASPIRIN 81 MG ENTERIC TABLET PO ×2 (08:59→16:38)
[2022-06-03] MEDS: FAMOTIDINE 20 MG TABLET PO ×2 (09:02→20:07)
[2022-06-03] MEDS: FLECAINIDE ACETATE 100 MG TABLET PO ×2 (09:02→20:07)
--- NOTE | 2022-06-03 10:35 | WPDANESPN ---
Anes - Prog Note Post-Op Date/Time: 06/03/22 10:35 Cardiovascular status: other (patient recieving blood for low hgb and low BP) Respiratory status: normal Airway patency: baseline Mental status: baseline Post-Op hydration status: normal Vital Signs: Last Vital Signs Temp 36.6 C 06/03/22 04:53 Pulse 67 06/03/22 09:02 Resp 18 06/03/22 04:53 BP 78/48 L 06/03/22 07:30 Pulse Ox 97 06/03/22 04:53 O2 Del Method Room Air 06/02/22 20:00 O2 Flow Rate 6 06/02/22 10:50 Pain Score (VAS): 3 I/O: Intake & Output 06/02/22 06/03/22 06/03/22 23:59 07:59 15:59 Intake Total 718 290 Balance 718 290 Laboratory Tests 06/03/22 08:11 06/03/22 05:06 06/02/22 06/03/22 06/03/22 07:06 05:06 05:06 WBC 13.9 H RBC 2.89 L Hgb 8.2 L D Hct 26.4 L MCV 91.3 MCH 28.4 MCHC 31.1 L RDW 14.6 H Plt Count 230 MPV 9.5 Immature Gran % (Auto) 0.5 Neut % (Auto) 83.5 H Lymph % (Auto) 6.5 L Catron % (Auto) 9.2 H Eos % (Auto) 0.0 Baso % (Auto) 0.3 Lymph # (Auto) 0.90 Catron # (Auto) 1.3 H Eos # (Auto) 0.0 Baso # (Auto) 0.0 Abs Immat Gran (auto) 0.07 H Absolute Neuts (auto) 11.6 H Absolute Nucleated RBC 0.0 Nucleated RBC % 0.0 Sodium 131 L Potassium 3.7 Chloride 104 Carbon Dioxide 26 Anion Gap 1 L BUN 18 H Creatinine 1.00 Estim Creat Clear Calc 52 Estimated GFR > 60 Glucose 107 Calcium 7.7 L Blood Type O Positive Antibody Screen Negative Crossmatch See Detail 06/03/22 08:11 WBC RBC Hgb 7.8 L Hct 25.2 L MCV MCH MCHC RDW Plt Count MPV Immature Gran % (Auto) Neut % (Auto) Lymph % (Auto) Catron % (Auto) Eos % (Auto) Baso % (Auto) Lymph # (Auto) Catron # (Auto) Eos # (Auto) Baso # (Auto) Abs Immat Gran (auto) Absolute Neuts (auto) Absolute Nucleated RBC Nucleated RBC % Sodium Potassium Chloride Carbon Dioxide Anion Gap BUN Creatinine Estim Creat Clear Calc Estimated GFR Glucose Calcium Blood Type Antibody Screen Crossmatch Post-procedural complaints: none Patient Feedback: Patient satisfied with anesthetic care.
[2022-06-03] MEDS: SODIUM CHLORIDE 0.9% IV 250 ML 30 ML IV CONT (10:40)
--- NOTE | 2022-06-03 11:00 | PM.IMCN ---
Assessment and Plan Assessment and plan (1) Acute blood loss anemia: Code(s): D62 - Acute posthemorrhagic anemia Status: Acute (2) Hypotension: Code(s): I95.9 - Hypotension, unspecified Status: Acute (3) Right hip pain: Code(s): M25.551 - Pain in right hip Status: Acute Plan Patient is hypotensive give 2 units of blood transfusions starting the night now. Monitor H& H. q.4 Monitor pressure. Hold BP meds. Hold NSAIDs. Monitor use of narcotics for pain control. Encourage patient oral intake and hydration Will monitor for any source of infection. Starting patient on iron pills. HPI Data of Consult Consult date: 06/03/22 Requesting Physician: Aryan Mary MD Primary Care Provider: Tone Cardoso MD Consult Narrative Reason for consult: Dizziness Narrative: Leonarda Jean is a 71 year old female who was admitted to the hospital for hip arthroplasty. Became very dizzy and weak after surgery patient hemoglobin dropped to 7.8. Patient also been hypertensive patient was given couple of L of IV fluid feels a lot better now. Patient denies any history of any chest pain no shortness for breath no previous history of GI bleed no use NSAIDs in the past. Patient has history of hypertension and arthritis for which she was taking metoprolol, losartan, meloxicam. We were called on consult to evaluate the patient for hypertension. Patient has good urine output no abdominal pain was able to ambulate with support yesterday but did feel very dizzy and had episode nausea and vomiting. Review of Systems Review of Systems: No fevers chills nausea vomiting. No double vision no blurry vision. No difficulty hearing or sinus complaints. No chest pain shortness of breath fever palpitation dizziness ankle swelling. No coughing wheezing chills. No nausea constipation diarrhea abdominal pain reflux. No urgency frequency of urination. No hematuria. No skin rash eczema. No anxiety depression difficulty sleeping. No bleeding gums enlarged glands. No muscle ache back pain joint stiffness. No loss of strength numbness headache tremor or loss of memory. [facility] Past Medical History Medical History (Updated 06/03/22 @ 11:04 by Alexander Skinner MD) Epigastric pain Gastric polyp Gastric polyps History of stress test HLD (hyperlipidemia) Premature ventricular complex Vitamin B12 deficiency Surgical History Surgical History (Updated 06/02/22 @ 13:52 by Tone Cardoso MD) History of cholecystectomy History of shoulder surgery Left S/P wrist surgery Right Status post hysterectomy with oophorectomy Status post total hip replacement, right Family History Family History Father Family history of coronary artery disease Grandparent Family history of lung cancer Mother Patient's mother is in good health Other Diabetes mellitus Family history of cardiovascular disease Family history of malignant neoplasm Family history of malignant neoplasm of breast Social History Social History Smoking status: Former smoker Tobacco type: cigarettes Second hand tobacco smoke exposure: No Additional smoking assessment comments: STATES SNEAKING CIGARETTES A TEEN - DENIES ALL FORMS OF TOBACCO USE Alcohol intake: never Alcohol use details: 2/MONTH Substance use: never Substance use type: does not use Lack of Transportation: No Lack of Food: Never True Current Housing: I Have Housing Concerned About Future Housing: No Difficulty Paying Gas/Electric Bills: No Difficulty Paying for Meds: No Currently Unemployed: No Education: Bachelor's Degree Difficulty w/ Childcare or Family Care: No Living arrangements: alone Occupation/Education: retired Gender identity (if verbalized by the patient): Female Sexual Orientati
--- NOTE | 2022-06-03 11:53 | PM.PNORT ---
Progress Note: A&P Assessment and Plan (1) Acute blood loss anemia: Code(s): D62 - Acute posthemorrhagic anemia <ORAL Ruiz - Last Filed: 06/06/22 07:53> Status: Acute <ORAL Ruiz - Last Filed: 06/06/22 07:53> (2) Hypotension: Code(s): I95.9 - Hypotension, unspecified <ORAL Ruiz - Last Filed: 06/06/22 07:53> Status: Acute <ORAL Ruiz - Last Filed: 06/06/22 07:53> (3) Status post total hip replacement, right: Code(s): Z96.641 - Presence of right artificial hip joint <ORAL Ruiz - Last Filed: 06/06/22 07:53> Status: Acute <ORAL Ruiz - Last Filed: 06/06/22 07:53> Assessment and Plan: 2 units given. Patient feels much better. Hgb stabilized and increased slightly. Observe overnight. Recheck labs in the AM. Appreciate hospitalist care. Likely discharge tomorrow. <Aryan Mary MD - Last Filed: 06/03/22 17:26> Subjective Subjective Date/Time Seen: 06/03/22 11:53 <ORAL Ruiz - Last Filed: 06/06/22 07:53> Post Op day: 1 <Aryan Mary MD - Last Filed: 06/03/22 17:26> Interval history: Nausea this am. Better now. Pain well controlled. <Aryan Mary MD - Last Filed: 06/03/22 17:26> Exam Narrative: Alert and oriented. No distress. Blood pressure within normal limits now. Low this morning. Wound:dressing clean dry and intact. No drainage. No hematoma. Thigh soft. Calves non tender. Wiggles toes. Sensation intact. <Aryan Mary MD - Last Filed: 06/03/22 17:26> Objective Data Vital Signs Vital Signs: Vital Signs - 24 hr 06/02/22 12:05 06/02/22 12:12 06/02/22 12:13 Temperature 97.6 F Pulse Rate 77 74 76 Respiratory Rate 16 14 18 Blood Pressure 108/66 110/67 116/63 Pulse Oximetry 93 99 98 Oxygen Delivery Room Air Room Air 06/02/22 12:28 06/02/22 12:58 06/02/22 13:58 Temperature 97.5 F L 97.8 F 98.0 F Pulse Rate 76 71 97 Respiratory Rate 18 18 18 Blood Pressure 118/67 110/58 L 128/74 Pulse Oximetry 96 98 91 Oxygen Delivery 06/02/22 17:52 06/02/22 17:55 06/02/22 19:46 Temperature 98.0 F 97.7 F Pulse Rate 81 80 77 Respiratory Rate 18 20 Blood Pressure 107/56 L 120/62 Pulse Oximetry 100 100 Oxygen Delivery 06/02/22 21:08 06/02/22 20:00 06/03/22 00:44 Temperature 97.4 F L Pulse Rate 77 59 L Respiratory Rate 20 Blood Pressure 92/50 L Pulse Oximetry 99 Oxygen Delivery Room Air 06/03/22 03:25 06/03/22 04:53 06/03/22 05:57 Temperature 97.9 F Pulse Rate 67 Respiratory Rate 18 Blood Pressure 73/38 L 70/39 L 79/46 L Pulse Oximetry 97 Oxygen Delivery 06/03/22 05:58 06/03/22 07:05 06/03/22 07:30 Temperature Pulse Rate Respiratory Rate Blood Pressure 84/51 L 84/40 L 78/48 L Pulse Oximetry Oxygen Delivery 06/03/22 09:02 06/03/22 10:40 06/03/22 10:55 Temperature 97.9 F 98.0 F Pulse Rate 67 67 78 Respiratory Rate 18 16 Blood Pressure 95/70 L 94/51 L Pulse Oximetry 100 100 Oxygen Delivery 06/03/22 10:15 Temperature 98.9 F Pulse Rate 75 Respiratory Rate 16 Blood Pressure 92/48 L Pulse Oximetry 99 Oxygen Delivery <ORAL Ruiz - Last Filed: 06/06/22 07:53> Intake/Output Intake/Output: Intake & Output 05/31/22 06/01/22 06/02/22 06/03/22 23:59 23:59 23:59 23:59 Intake Total 1368 410 Balance 1368 410 <ORAL Ruiz - Last Filed: 06/06/22 07:53> Meds/Results Medications: Active Medications Generic Name Dose Route Start Last Admin Trade Name Freq PRN Reason Stop Dose Admin Aspirin 81 mg 06/02/22 13:00 06/03/22 08:59 Aspirin 81 Mg Enteric Tablet PO 81 mg BID SUSANNE Administration Cyclobenzaprine HCl 10 mg 06/02/22 12:13 Cyclobenzaprine Hcl 10 Mg Tablet PO Q8H PRN Spasms Diphenhydramine HCl 25 mg 06/02/22 12:13
[2022-06-03 13:17] LABS: Hematocrit 26.5 % (37.0-47.0); Hemoglobin 8.5 g/dL (12.0-15.0)
[2022-06-03] MEDS: ACETAMINOPHEN 325 MG TABLET 650 MG PO (14:21)
[2022-06-03] MEDS: SENNA/DOCUSATE SODIUM TABLET 2 TAB PO (14:22)
[2022-06-03] MEDS: polyethylene glycoL 3350 17 GM POWD.PACK PO (14:23)
--- NOTE | 2022-06-03 14:25 | PM.DS ---
DS: Admitting Diagnosis Discharge Date 06/05/22 Admitting Diagnosis OA Right hip DS: Discharge Diagnosis Discharge Diagnosis (1) Hypotension: Code(s): I95.9 - Hypotension, unspecified Status: Acute (2) Acute blood loss anemia: Code(s): D62 - Acute posthemorrhagic anemia Status: Acute (3) Status post total hip replacement, right: Code(s): Z96.641 - Presence of right artificial hip joint Status: Acute Plan Postop day 2: Right total Hip arthroplasty. Patient had hypotension postoperatively and blood counts dropped below 8. She also felt nauseous. Blood products were given. Patient is feeling much better and may be discharged pending improvement in her lab work. Pain manageable with pain medication. No numbness or tingling. I do recommend that she see her primary care doctor to follow up on hypotension. We had a lengthy discussion regarding postoperative wound care, limitations, expectations, and exercises. Patient shows good understanding. She has had initial physical therapy and is tolerating it well. DVT prophylaxis: 81 mg baby aspirin b.i.d. for 14 days. Pain medication: Percocet. Meloxicam. Patient has followup appointment with Dr. Mary in 3 weeks. DS: Summary Hospital Course Reason for hospitalization: Total hip arthroplasty Hospital Course: Patient presented for elective total hip replacement. She had hypotension postoperatively and blood counts dropped below 8. She also felt nauseous. Blood products were given. Patient is feeling much better and may be discharged pending improvement in her lab work. Status at Discharge Functional status at discharge: uses cane/walker Overall status at discharge: patient is progressing back to baseline Time Spent with Patient Time attestation: Total time spent providing and/or coordinating discharge services: Exam Narrative: Overweight 71 y/o female. Resting comfortably in bed. Wearing compression socks bilaterally. Dressing dry and intact with no drainage. Moderate swelling. No ecchymosis. No erythema. No hematoma. Range of motion limited due to pain. Calf nontender. Thigh nontender. Neurologic status intact. No varicosities. Distal pulses palpable. DS: Data Data Completed and Pending Labs on day of discharge: Labs from last 24 hours 06/03/22 06/03/22 06/03/22 12:59 08:11 05:06 WBC RBC Hgb 8.5 L 7.8 L Hct 26.5 L 25.2 L MCV MCH MCHC RDW Plt Count MPV Immature Gran % (Auto) Neut % (Auto) Lymph % (Auto) [place] % (Auto) Eos % (Auto) Baso % (Auto) Lymph # (Auto) [place] # (Auto) Eos # (Auto) Baso # (Auto) Abs Immat Gran (auto) Absolute Neuts (auto) Absolute Nucleated RBC Nucleated RBC % Sodium 131 L Potassium 3.7 Chloride 104 Carbon Dioxide 26 Anion Gap 1 L BUN 18 H Creatinine 1.00 Estim Creat Clear Calc 52 Estimated GFR > 60 Glucose 107 Calcium 7.7 L Blood Type Antibody Screen Crossmatch 06/03/22 06/02/22 05:06 07:06 WBC 13.9 H RBC 2.89 L Hgb 8.2 L D Hct 26.4 L MCV 91.3 MCH 28.4 MCHC 31.1 L RDW 14.6 H Plt Count 230 MPV 9.5 Immature Gran % (Auto) 0.5 Neut % (Auto) 83.5 H Lymph % (Auto) 6.5 L [place] % (Auto) 9.2 H Eos % (Auto) 0.0 Baso % (Auto) 0.3 Lymph # (Auto) 0.90 [place] # (Auto) 1.3 H Eos # (Auto) 0.0 Baso # (Auto) 0.0 Abs Immat Gran (auto) 0.07 H Absolute Neuts (auto) 11.6 H Absolute Nucleated RBC 0.0 Nucleated RBC % 0.0 Sodium Potassium Chloride Carbon Dioxide Anion Gap BUN Creatinine Estim Creat Clear Calc Estimated GFR Glucose Calcium Blood Type O Positive Antibody Screen Negative Crossmatch See Detail Discharge Plan Discharge Consulting providers: Alexander Skinner Discharging Clinician: Alexander Skinner Patient Disposition: Home, Self-Care Activity: as tolerated
[2022-06-03] MEDS: FERROUS SULFATE 324 MG TABLET PO (16:38)
[2022-06-03] MEDS: oxyCODONE HCL (*CRX) 5 MG TAB IR PO (18:18)
[2022-06-04] VITALS (10 sets, daily range): BP systolic 90–107; BP diastolic 40–69; PULSE 89–110; RESP 16–20; TEMP 36.6–37.2; O2SAT 97–100
[2022-06-04 08:02] LABS: Hemoglobin 7.7 g/dL (12.0-15.0); Mean Corpuscular HGB Conc 32.1 g/dl (32-36); Mean Corpuscular Hemoglobin 28.8 pg (26-34); Mean Corpuscular Volume 89.9 fl (80-100); Mean Platelet Volume 9.1 fl (7.4-10.4); Platelet Count Result 191 k/mm3 (150-375); Red Blood Count 2.67 M/mm3 (4.2-5.4); Red Cell Distribution Width 14.5 % (11.5-14.5); White Blood Count 10.4 K/mm3 (4.5-10.0)
[2022-06-04 08:16] LABS: Alanine Aminotransferase 15 U/L (6-35); Albumin Level 2.6 g/dL (3.5-5.1); Alkaline Phosphatase 56 U/L (38-126); Anion Gap 0 mmol/L (8-16); Aspartate Amino Transferase 29 U/L (14-36); Bilirubin,Total 0.5 mg/dL (0.2-1.3); Blood Urea Nitrogen 13 mg/dL (7-17); Calcium 7.7 mg/dL (8.4-10.2); Carbon Dioxide 28 mmol/L (22-30); Chloride 106 mmol/L (98-107); Estimated CRCL calculation 58 ml/min; Estimated Glomerular Filt Rate > 60; Glucose 96 mg/dL (65-110); Potassium 3.3 mmol/L (3.4-5.0); Sodium 134 mmol/L (137-145)
--- NOTE | 2022-06-04 09:29 | PM.IMPN ---
Progress Note: A&P Assessment and Plan (1) Acute blood loss anemia: Code(s): D62 - Acute posthemorrhagic anemia Status: Acute (2) Hypotension: Code(s): I95.9 - Hypotension, unspecified Status: Acute (3) Status post total hip replacement, right: Code(s): Z96.641 - Presence of right artificial hip joint Status: Acute Plan Patient feels much better. Hgb stabilized current hemoglobin of 7.7 /24.0 Observe overnight. no hypertension heart rate is well controlled continue to monitor for 1 more day repeat labs in the H&H is stable can go iron pills spoke to patient at length answered questions Likely discharge tomorrow. Subjective Date/time seen: 06/04/22 09:29 Interval history: Patient denies any complaints. Appears comfortable bed ambulating no dizziness no diaphoresis Exam Narrative: GENERAL: Well appearing, well-nourished, non-toxic, in no acute distress. HEAD: Normocephalic, atraumatic. NECK: Supple. No adenopathy, no masses. RESPIRATORY: Airway patent, respirations nonlabored. Clear to auscultation bilaterally, no rales, rhonchi, wheezing. CARDIOVASCULAR: Regular rate and rhythm without murmurs, rubs, or gallops. Peripheral pulses 2+ and equal bilaterally. ABDOMINAL: Soft, nontender, nondistended, no hepatosplenomegaly. Normoactive BS. MUSCULOSKELETAL: no Epigastric and no hypochondrial tenderness SKIN: Warm, dry, normal color. No rashes. NEURO: A&O X3. Moves all extremities PSYCHIATRIC: Appropriate mood and affect. Normal interaction. Objective Data Vital Signs Vital Signs: Vital Signs - 24 hr 06/03/22 10:40 06/03/22 10:55 06/03/22 10:15 Temperature 36.6 C 36.7 C 37.2 C Pulse Rate 67 78 75 Respiratory Rate 18 16 16 Blood Pressure 95/70 L 94/51 L 92/48 L Pulse Oximetry 100 100 99 Oxygen Delivery 06/03/22 12:00 06/03/22 13:00 06/03/22 14:21 Temperature 37.4 C 37.4 C 37.4 C Pulse Rate 78 76 Respiratory Rate 16 16 Blood Pressure 96/52 L 100/56 L Pulse Oximetry 98 100 Oxygen Delivery 06/03/22 14:42 06/03/22 19:47 06/03/22 18:30 Temperature 37.1 C 36.9 C 37.1 C Pulse Rate 88 85 92 Respiratory Rate 16 20 18 Blood Pressure 120/69 100/50 L 108/62 Pulse Oximetry 99 100 100 Oxygen Delivery 06/03/22 20:00 06/04/22 00:22 06/04/22 02:43 Temperature 36.8 C 37.0 C Pulse Rate 66 89 98 Respiratory Rate 18 18 20 Blood Pressure 90/40 L 106/45 L Pulse Oximetry 99 100 98 Oxygen Delivery Room Air Intake/Output Intake/Output: Intake & Output 06/01/22 06/02/22 06/03/22 06/04/22 23:59 23:59 23:59 23:59 Intake Total 1368 2900 360 Balance 1368 2900 360 Meds/Results Medications: Active Medications Generic Name Dose Route Start Last Admin Trade Name Freq PRN Reason Stop Dose Admin Acetaminophen 650 mg 06/03/22 13:56 06/03/22 14:21 Acetaminophen 325 Mg Tablet PO 650 mg Q4H PRN Administration Headache Aspirin 81 mg 06/02/22 13:00 06/03/22 16:38 Aspirin 81 Mg Enteric Tablet PO 81 mg BID SUSANNE Administration Cyclobenzaprine HCl 10 mg 06/02/22 12:13 Cyclobenzaprine Hcl 10 Mg Tablet PO Q8H PRN Spasms Diphenhydramine HCl 25 mg 06/02/22 12:13 Diphenhydramine Hcl Inj 50 Mg/Ml Vial IV PUSH Q6H PRN Itching Famotidine 20 mg 06/02/22 13:00 06/03/22 20:07 Famotidine 20 Mg Tablet PO 20 mg Q12HR SUSANNE Administration Ferrous Sulfate 324 mg 06/03/22 17:00 06/03/22 16:38 Ferrous Sulfate 324 Mg Tablet PO 324 mg BIDWM SUSANNE Administration Flecainide Acetate 100 mg 06/02/22 13:00 06/03/22 20:07 Flecainide Acetate 100 Mg Tablet PO 100 mg Q12HR SUSANNE Administration Losartan Potassium 100 mg 06/02/22 13:00 06/02/22 18:35 Losartan Potassium 100 Mg Tablet PO Not Given DAILY SUSANNE Meloxicam 7.5 mg 06/02/22 13:00 06/02/22 17:41 Meloxicam 7.5 Mg Tablet PO Not Given BID SUSANNE Metoprolol Succinate 25 mg 06/02/22 13:00 06/02/22 17:55 Metopro
[2022-06-04] MEDS: FLECAINIDE ACETATE 100 MG TABLET PO ×2 (11:12→20:52)
[2022-06-04] MEDS: ASPIRIN 81 MG ENTERIC TABLET PO ×2 (11:12→17:26)
[2022-06-04] MEDS: FAMOTIDINE 20 MG TABLET PO ×2 (11:12→20:52)
[2022-06-04] MEDS: FERROUS SULFATE 324 MG TABLET PO ×2 (11:12→17:26)
[2022-06-04] MEDS: SENNA/DOCUSATE SODIUM TABLET 2 TAB PO ×2 (11:14→17:26)
[2022-06-04] MEDS: polyethylene glycoL 3350 17 GM POWD.PACK PO (11:27)
[2022-06-05 04:12] VITALS: BP 100/52; PULSE 95; RESP 18; TEMP 36.8; O2SAT 100
[2022-06-05 08:18] LABS: Hematocrit 21.6 % (37.0-47.0); Mean Corpuscular HGB Conc 31.5 g/dl (32-36); Mean Corpuscular Hemoglobin 28.3 pg (26-34); Mean Platelet Volume 9.3 fl (7.4-10.4); Platelet Count Result 218 k/mm3 (150-375); Red Cell Distribution Width 14.6 % (11.5-14.5); White Blood Count 9.5 K/mm3 (4.5-10.0)
[2022-06-05 08:25] LABS: Alanine Aminotransferase 12 U/L (6-35); Albumin Level 2.4 g/dL (3.5-5.1); Alkaline Phosphatase 57 U/L (38-126); Anion Gap 2 mmol/L (8-16); Aspartate Amino Transferase 22 U/L (14-36); Bilirubin,Total 0.5 mg/dL (0.2-1.3); Blood Urea Nitrogen 12 mg/dL (7-17); Calcium 7.7 mg/dL (8.4-10.2); Carbon Dioxide 28 mmol/L (22-30); Chloride 109 mmol/L (98-107); Estimated CRCL calculation 73 ml/min; Estimated Glomerular Filt Rate > 60; Glucose 94 mg/dL (65-110); Potassium 3.6 mmol/L (3.4-5.0); Sodium 139 mmol/L (137-145)
[2022-06-05 08:32] LABS: Hemoglobin 6.8 g/dL (12.0-15.0)
[2022-06-05 09:20] VITALS: PULSE 95
[2022-06-05] MEDS: ASPIRIN 81 MG ENTERIC TABLET PO ×2 (09:20→17:57)
[2022-06-05] MEDS: FAMOTIDINE 20 MG TABLET PO ×2 (09:20→17:56)
[2022-06-05] MEDS: FLECAINIDE ACETATE 100 MG TABLET PO ×2 (09:20→17:55)
[2022-06-05] MEDS: FERROUS SULFATE 324 MG TABLET PO ×2 (09:20→17:55)
[2022-06-05 09:34] LABS: Hematocrit 24.6 % (37.0-47.0)
[2022-06-05 09:44] LABS: Iron 18 ug/dL (37-170)
[2022-06-05 09:53] LABS: Percent Iron Saturation 10 % (20-50)
[2022-06-05 10:00] VITALS: BP 100/55; PULSE 98; RESP 16; TEMP 36.8; O2SAT 100
[2022-06-05] MEDS: polyethylene glycoL 3350 17 GM POWD.PACK PO (12:35)
--- NOTE | 2022-06-05 12:58 | PM.DS ---
DS: Admitting Diagnosis Discharge Date June 05, 2022 Admitting Diagnosis Anemia DS: Discharge Diagnosis Discharge Diagnosis (1) Hypotension: Code(s): I95.9 - Hypotension, unspecified Status: Acute (2) Acute blood loss anemia: Code(s): D62 - Acute posthemorrhagic anemia Status: Acute DS: Summary Hospital Course Hospital Course: Patient is 71-year-old who was seen as a consult for low hemoglobin. The patient is status post right hip arthroplasty. Patient hemoglobin dropped from 8.5 to 7.7. 2 units of blood transfusions were given. Last hemoglobin this morning is 8 patient is not hypotensive or diaphoretic today. She had complained of dizziness 1 day postop and did feel weak while going to the bathroom. Patient is doing well with therapy and would like to go home. Will recheck another H&H before discharge. Patient can follow up with the primary care physician in 1 week. Patient also given iron pills to take at home. Patient to continue home medications. Also advised to hold blood pressure medications if blood pressure less than 100 systolic and 80s diastolic. Time Spent with Patient Time attestation: Total time spent providing and/or coordinating discharge services: Exam Narrative: GENERAL: Well appearing, well-nourished, non-toxic, in no acute distress. HEAD: Normocephalic, atraumatic. NECK: Supple. No adenopathy, no masses. RESPIRATORY: Airway patent, respirations nonlabored. Clear to auscultation bilaterally, no rales, rhonchi, wheezing. CARDIOVASCULAR: Regular rate and rhythm without murmurs, rubs, or gallops. Peripheral pulses 2+ and equal bilaterally. ABDOMINAL: Soft, nontender, nondistended, no hepatosplenomegaly. Normoactive BS. MUSCULOSKELETAL: no Epigastric and no hypochondrial tenderness SKIN: Warm, dry, normal color. No rashes. NEURO: A&O X3. Moves all extremities PSYCHIATRIC: Appropriate mood and affect. Normal interaction. DS: Data Data Completed and Pending Labs on day of discharge: Labs from last 24 hours 06/05/22 06/05/22 06/05/22 09:27 09:26 07:52 WBC RBC Hgb 8.0 L Hct 24.6 L MCV MCH MCHC RDW Plt Count MPV Sodium 139 Potassium 3.6 Chloride 109 H Carbon Dioxide 28 Anion Gap 2 L BUN 12 Creatinine 0.70 Estim Creat Clear Calc 73 Estimated GFR > 60 Glucose 94 Calcium 7.7 L Iron TIBC % Saturation Total Bilirubin 0.5 AST 22 ALT 12 Alkaline Phosphatase 57 Total Protein 5.0 L Albumin 2.4 L Blood Type O Positive Antibody Screen Negative Crossmatch See Detail 06/05/22 06/05/22 07:52 07:48 WBC 9.5 RBC 2.40 L Hgb 6.8 L* Hct 21.6 L MCV 90.0 MCH 28.3 MCHC 31.5 L RDW 14.6 H Plt Count 218 MPV 9.3 Sodium Potassium Chloride Carbon Dioxide Anion Gap BUN Creatinine Estim Creat Clear Calc Estimated GFR Glucose Calcium Iron 18 L TIBC 189 L % Saturation 10 L Total Bilirubin AST ALT Alkaline Phosphatase Total Protein Albumin Blood Type Antibody Screen Crossmatch Discharge Plan Discharge Consulting providers: Alexander Skinner Discharging Clinician: Alexander Skinner Patient Disposition: Home, Self-Care Activity: as tolerated Diet: regular Discharge Instructions: See green instruction sheets Please follow up with your primary care physician. Patient Instructions: Pain Management (DC), Total Hip Replacement (DC) Stand Alone Forms: General Discharge Instructions Follow-up/Referrals: Mallory Cruz PA [Physician Shell Sieve Operator] - Discharge Medications: New meloxicam 15 mg tablet 15 mg PO DAILY Qty: 30 0RF Rx Instructions: Cut in half. Take 1/2 in morning and 1/2 at night. Take with food. Stop if stomach upset. aspirin 81 mg tablet,delayed release (DR/EC) 81 mg PO BID 14 Days Qty: 28 0RF oxycodone-acetaminophen 5-325 mg tablet
[2022-06-05 14:00] VITALS: BP 111/79; PULSE 87; RESP 14; TEMP 36.6; O2SAT 100
--- NOTE | 2022-06-05 15:11 | PM.PNORT ---
Progress Note: A&P Assessment and Plan (1) Acute blood loss anemia: Code(s): D62 - Acute posthemorrhagic anemia Status: Acute (2) Hypotension: Code(s): I95.9 - Hypotension, unspecified Status: Acute (3) Arthritis of right hip: Code(s): M16.11 - Unilateral primary osteoarthritis, right hip Status: Acute (4) Status post total hip replacement, right: Code(s): Z96.641 - Presence of right artificial hip joint Status: Acute Plan s/p right total hip complicated by blood loss anemia. Feeling well now. Hgb stable. Final check pending. Likely home today. Subjective Subjective Date/Time Seen: 06/05/22 15:11 Interval history: Patient is doing well without complaints. Pain well controlled. Exam Narrative: Wound is healing well. No drainage, or hematoma. Anterior tibialis and EHL 5/5. No edema. Calves non tender. Const: Orientation/consciousness: patient oriented x3 Neuro: General: patient oriented x3 Extrem: General: capillary refill normal, no calf tenderness bilaterally and no pedal edema Psych: Affect: normal affect Objective Data Vital Signs Vital Signs: Vital Signs - 24 hr 06/04/22 18:38 06/04/22 19:37 06/04/22 20:00 Temperature 36.8 C 36.9 C Pulse Rate 110 H 107 H 107 H Respiratory Rate 16 18 18 Blood Pressure 103/69 100/49 L Pulse Oximetry 100 97 97 Oxygen Delivery Room Air 06/04/22 23:03 06/05/22 04:12 06/05/22 09:20 Temperature 37.2 C 36.8 C Pulse Rate 94 95 95 Respiratory Rate 16 18 Blood Pressure 100/40 L 100/52 L Pulse Oximetry 97 100 Oxygen Delivery 06/05/22 10:00 06/05/22 08:00 06/05/22 14:00 Temperature 36.8 C 36.6 C Pulse Rate 98 87 Respiratory Rate 16 14 Blood Pressure 100/55 L 111/79 Pulse Oximetry 100 100 Oxygen Delivery Room Air Intake/Output Intake/Output: Intake & Output 06/02/22 06/03/22 06/04/22 06/05/22 23:59 23:59 23:59 23:59 Intake Total 1368 2900 1560 440 Balance 1368 2900 1560 440 Meds/Results Medications: Active Medications Generic Name Dose Route Start Last Admin Trade Name Freq PRN Reason Stop Dose Admin Acetaminophen 650 mg 06/03/22 13:56 06/03/22 14:21 Acetaminophen 325 Mg Tablet PO 650 mg Q4H PRN Administration Headache Aspirin 81 mg 06/02/22 13:00 06/05/22 09:20 Aspirin 81 Mg Enteric Tablet PO 81 mg BID SUSANNE Administration Cyclobenzaprine HCl 10 mg 06/02/22 12:13 Cyclobenzaprine Hcl 10 Mg Tablet PO Q8H PRN Spasms Diphenhydramine HCl 25 mg 06/02/22 12:13 Diphenhydramine Hcl Inj 50 Mg/Ml Vial IV PUSH Q6H PRN Itching Famotidine 20 mg 06/02/22 13:00 06/05/22 09:20 Famotidine 20 Mg Tablet PO 20 mg Q12HR SUSANNE Administration Ferrous Sulfate 324 mg 06/03/22 17:00 06/05/22 09:20 Ferrous Sulfate 324 Mg Tablet PO 324 mg BIDWM SUSANNE Administration Flecainide Acetate 100 mg 06/02/22 13:00 06/05/22 09:20 Flecainide Acetate 100 Mg Tablet PO 100 mg Q12HR SUSANNE Administration Sodium Chloride 250 mls @ 30 mls/hr 06/05/22 09:12 Normal Saline Iv IV CONT 06/05/22 17:31 .Q8H20M STA Losartan Potassium 100 mg 06/02/22 13:00 06/02/22 18:35 Losartan Potassium 100 Mg Tablet PO Not Given DAILY SUSANNE Meloxicam 7.5 mg 06/02/22 13:00 06/02/22 17:41 Meloxicam 7.5 Mg Tablet PO Not Given BID SUSANNE Metoprolol Succinate 25 mg 06/02/22 13:00 06/02/22 17:55 Metoprolol Succinate Ext Rel 25 Mg Tabcr PO 25 mg DAILY SUSANNE Administration Naloxone HCl 0.1 mg 06/02/22 12:13 Naloxone Hcl 0.4 Mg/Ml Vial IV PUSH Q2M PRN Opiate Reversal Oxycodone HCl 5 mg 06/02/22 12:13 06/03/22 18:18 Oxycodone Hcl (*Crx) 5 Mg Tab Ir PO 5 mg Q4H PRN Administration Pain Rated 4-6 Oxycodone HCl 10 mg 06/02/22 12:13 Oxycodone Hcl (*Crx) 5 Mg Tab Ir PO Q4H PRN Pain Rated 7-10 Polyethylene Glycol 17 gm 06/02/22 12:13 06/05/22 12:35 Polyethylene
[2022-06-05 16:02] LABS: Hematocrit 24.9 % (37.0-47.0); Hemoglobin 7.9 g/dL (12.0-15.0)
[2022-06-05 17:55] VITALS: PULSE 87
== END 2022-06-05 18:30 | disposition home or self-care (01) | DRG 470 ==
LOC: ANHSURGERY 14:33 → ANH2MED 06-05 12:57
PROVIDERS: Physician Assistant Surgical; Admitting Provider Orthopaedic Surgery; PCP Family Medicine; Visit Provider Internal Medicine
PROC: 0SR904A Replacement of Right Hip Joint with Ceramic on Polyethylene Synthetic Substitute, Uncemented, Open Approach (ICD-10-PCS; CPT 27130; principal; 2022-06-02 08:30)
DX: M16.11 Unilateral primary osteoarthritis, right hip (principal); D62 Acute posthemorrhagic anemia; I95.81 Postprocedural hypotension; I10 Essential (primary) hypertension; E78.5 Hyperlipidemia, unspecified; Z90.49 Acquired absence of other specified parts of digestive tract; Z90.710 Acquired absence of both cervix and uterus; Z87.891 Personal history of nicotine dependence
CPT/HCPCS: 36415; 36430; 73501; 73502; 80048; 80053; 83540; 83550; 85014; 85018; 85025; 85027; 86850; 86900; 86901; 86920; 86923; 97110; 97116; 97161; 97165; 97530; 97535; A9270; C1776; J0131; J0171; J0690; J1100; J1170; J1885; J2250; J2270; J2405; J2704; J2795; J3010; J7050; J7120; P9016

== ENCOUNTER 2022-06-07 11:17 | Outpatient (CLI) | payer MEDICARE, SELFPAY ==
[2022-06-07 12:31] LABS: Hematocrit 26.2 % (37.0-47.0); Hemoglobin 8.2 g/dL (12.0-15.0); Mean Corpuscular HGB Conc 31.3 g/dl (32-36); Mean Corpuscular Hemoglobin 28.9 pg (26-34); Mean Corpuscular Volume 92.3 fl (80-100); Mean Platelet Volume 8.7 fl (7.4-10.4); Platelet Count Result 369 k/mm3 (150-375); Red Blood Count 2.84 M/mm3 (4.2-5.4); Red Cell Distribution Width 14.6 % (11.5-14.5)
[2022-06-07 12:47] LABS: Anion Gap 5 mmol/L (8-16); Blood Urea Nitrogen 11 mg/dL (7-17); Calcium 8.7 mg/dL (8.4-10.2); Carbon Dioxide 28 mmol/L (22-30); Chloride 105 mmol/L (98-107); Estimated Glomerular Filt Rate > 60; Glucose 91 mg/dL (65-110); Potassium 3.8 mmol/L (3.4-5.0); Sodium 138 mmol/L (137-145)
== END 2022-06-07 11:18 | disposition home or self-care (01) ==
LOC: ANHLAB 11:19
PROVIDERS: PCP Family Medicine; Visit Provider Internal Medicine
DX: D62 Acute posthemorrhagic anemia (principal)
CPT/HCPCS: 36415; 80048; 85027

== ENCOUNTER 2022-06-19 20:20 | Emergency (ER) | payer MEDICARE, SELFPAY ==
[2022-06-19 20:42] VITALS: BP 134/73; PULSE 79; RESP 18; TEMP 36.7; O2SAT 100
[2022-06-19 21:53] VITALS: BP 133/72; PULSE 75; RESP 14; RESP 18; TEMP 36.9; O2SAT 100
--- NOTE | 2022-06-19 22:04 | ED.GENADULT ---
HPI - General Adult General Chief complaint: Recheck/Abnormal Lab/Rx Stated complaint: wound recheck Time Seen by Provider: 06/19/22 21:48 History of Present Illness HPI narrative: 71-year-old female presents to the emergency department for evaluation of a bleeding surgical incision from a total hip replacement on 06/02. Patient had a total hip by Dr. Mary on 06/02. Patient was having some bleeding from the site and did have a outpatient office follow-up with Dr. Mary on 06/17. Patient was told to present to the emergency department if she had any worsening symptoms. Patient states prior to arrival she did have some additional bleeding from the incision site. Patient denies any new falls or injuries. Patient denies any fevers. Patient denies any change in her discomfort. Bleeding had resolved again upon arrival to the breast department. Related Data Home Medications Medication Instructions Recorded Confirmed cyanocobalamin (vitamin B-12) 1,000 mcg subcut MONTHLY 04/01/19 06/17/22 1,000 mcg/mL injection solution cholecalciferol (vitamin D3) 25 25 mcg PO DAILY 01/12/21 06/17/22 mcg (1,000 unit) capsule naproxen sodium 220 mg tablet 220 mg PO BID PRN Pain 05/04/22 06/17/22 (Aleve) Allergies Allergy/AdvReac Type Severity Reaction Status Date / Time No Known Allergies Allergy Verified 06/19/22 20:23 Review of Systems Review of Systems: CONSTITUTIONAL: Denies fever, chills, or sweats. EYES: Denies visual changes, redness, or discharge. ENT: Denies rhinorrhea, congestion, sore throat, or otalgia. CARDIOVASCULAR: Denies chest pain, palpitations, or edema. RESPIRATORY: Denies cough or dyspnea. GASTROINTESTINAL: Denies abdominal pain, nausea, vomiting, or diarrhea. GENITOURINARY: Denies dysuria or hematuria. SKIN: See HPI MUSCULOSKELETAL: Denies back pain, joint pain, or myalgia. NEUROLOGIC: Denies headache, numbness, or weakness. PSYCHIATRIC: Denies anxiety or depression. [facility] Past Medical History Medical History Epigastric pain Gastric polyp Gastric polyps History of stress test HLD (hyperlipidemia) Premature ventricular complex Vitamin B12 deficiency Surgical History Surgical History History of cholecystectomy History of shoulder surgery Left S/P wrist surgery Right Status post hysterectomy with oophorectomy Status post total hip replacement, right Family History Family History Father Family history of coronary artery disease Grandparent Family history of lung cancer Mother Patient's mother is in good health Other Diabetes mellitus Family history of cardiovascular disease Family history of malignant neoplasm Family history of malignant neoplasm of breast Social History Social History Smoking status: Former smoker Tobacco type: cigarettes Second hand tobacco smoke exposure: No Additional smoking assessment comments: STATES SNEAKING CIGARETTES A TEEN - DENIES ALL FORMS OF TOBACCO USE Alcohol intake: never Alcohol use details: 2/MONTH Substance use: never Substance use type: does not use Lack of Transportation: No Lack of Food: Never True Current Housing: I Have Housing Concerned About Future Housing: No Difficulty Paying Gas/Electric Bills: No Difficulty Paying for Meds: No Currently Unemployed: No Education: Bachelor's Degree Difficulty w/ Childcare or Family Care: No Living arrangements: alone Occupation/Education: retired Gender identity (if verbalized by the patient): Female Sexual Orientation (if Verbalized by the Patient): Straight or Heterosexual Spiritual care concerns: No Exam Narrative: APPEARANCE: Well appearing, no pain, no distress, well-nourished. HEAD: normocephalic, atraumatic. EYES: PERRLA/EOMI,
[2022-06-19 23:20] VITALS: BP 117/87; PULSE 80; RESP 19; O2SAT 99
== END 2022-06-19 23:20 | disposition home or self-care (01) ==
PROVIDERS: Emergency Provider Emergency Medicine; PCP Family Medicine
DX: Z48.01 Encounter for change or removal of surgical wound dressing (principal); Z96.641 Presence of right artificial hip joint; E78.5 Hyperlipidemia, unspecified; E53.8 Deficiency of other specified B group vitamins; Z90.710 Acquired absence of both cervix and uterus; Z87.891 Personal history of nicotine dependence
CPT/HCPCS: 99282

== ENCOUNTER 2022-06-22 00:59 | Day surgery (SDC) | payer MEDICARE, SELFPAY ==
--- NOTE | 2022-06-21 15:17 | PC.NURSE ---
Report to the Outpatient Waiting Room, entrance under the green pavilion located off [address], at time __0900 on date __06/22/22 . Planned Procedure Time: __1100 . Time changes happen often and if your time is changed the preop area will call you the afternoon before. - You and your visitor will be asked to self-screen and do not enter if you have any COVID symptoms. - Only one visitor is requested with a max of two and NO children visitors are allowed at this time. - The patient visitor may be requested to leave or wait in car when not with patient due to distancing restrictions. - A mask is optional within the hospital at this time. Patients may have clear liquids (water, carbonated beverages, clear teas, apple juice) until 3 hours prior to surgery with a maximum of 20 ounces. - No food from midnight until time of surgery - Infants may have breast milk until 4 hours before surgery, formula 6 hours prior to surgery. - Children will be allowed to drink immediately following surgery. If applicable, please bring a bottle or sippy cup to assist with drinking. Juice, water, soda, and popsicles are readily available. For infants on formula, please bring formula the day of surgery. Pacifiers are allowed. Take the following medications with a SIP of water the morning of surgery: ___FLECAINIDE METOPROLOL_AND CEPHALEXIN DO NOT STOP ANY OF YOUR OTHER PRESCRIPTION MEDICATIONS PRIOR TO SURGERY ?EXCEPT THE FOLLOWING Medications to discontinue per physician SURGERY TOMORROW Date to take last dose Please no make-up, nail tamazight, hairspray, perfume, deodorant, or body powder the day of surgery. No jewelry (including any body piercings) or valuables the day of surgery, leave them at home. Please take a shower or bath the night before, or the morning of, surgery with an antibacterial soap. Wear comfortable, loose fitting clothing. Children are encouraged to wear pajamas. - Jewelry must be removed prior to entering the operating room. Rings and piercings that are not removed may be cut off. - The hospital will not accept responsibility for valuables. - Please leave all valuables, including medications, at home the day of surgery. If you are going home after surgery, a licensed lease purchase driver must drive you home. - NO public transportation without another adult if you receive anesthesia. - We recommend that an adult stay with you for 24 hours following discharge. - We also recommend that you do not drive, make important decision, drink alcoholic beverages, or take any drugs that were not prescribed by your health care provider for at least 24 hours after your discharge time. For Pediatric surgeries, we recommend two adults accompany the child home. Follow any additional instructions given to you from your surgeon. If you or anyone in your household have experienced Covid symptoms in the past week, please notify your surgeon or the nurse liaison at the phone number below for possible testing. Telephone instructions given to __PATIENT and asked if any additional questions and then verbalized understanding. Patient advised to call surgeon office or pre surgery nurse liaison [phone] if any additional questions.
[2022-06-21 15:31] VITALS: BMI 34.3
[2022-06-22] VITALS (18 sets, daily range): BP systolic 100–144; BP diastolic 56–85; PULSE 52–79; RESP 12–20; TEMP 35.6–36.7; O2SAT 99–100
--- NOTE | 2022-06-22 07:19 | PM.HPGS ---
History of Present Illness History of Present Illness Consent: Risks, benefits, and alternatives have been discussed and questions answered. Patient agrees to proceed with procedure. Chief complaint: s/p right total hip Narrative: Leonarda Jean is a 71 year old female with bloody drainage from the right hip wound, 3 weeks s/p total hip arthroplasty. No fevers, numbness, tingling, or other associated symptoms. Review of Systems Review of Systems: All systems reviewed & are unremarkable except as noted in HPI and below PMFSH Past Medical History Medical History Epigastric pain Gastric polyp Gastric polyps History of stress test HLD (hyperlipidemia) Premature ventricular complex Vitamin B12 deficiency Surgical History Surgical History History of cholecystectomy History of shoulder surgery Left S/P wrist surgery Right Status post hysterectomy with oophorectomy Status post total hip replacement, right Family History Family History Father Family history of coronary artery disease Grandparent Family history of lung cancer Mother Patient's mother is in good health Other Diabetes mellitus Family history of cardiovascular disease Family history of malignant neoplasm Family history of malignant neoplasm of breast Social History Social History Smoking status: Never smoker Tobacco type: cigarettes Second hand tobacco smoke exposure: No Additional smoking assessment comments: STATES SNEAKING CIGARETTES A TEEN - DENIES ALL FORMS OF TOBACCO USE Alcohol intake: current Alcohol use details: 2/MONTHLY Substance use: never Substance use type: does not use Lack of Transportation: No Lack of Food: Never True Current Housing: I Have Housing Concerned About Future Housing: No Difficulty Paying Gas/Electric Bills: No Difficulty Paying for Meds: No Currently Unemployed: No Education: Bachelor's Degree Difficulty w/ Childcare or Family Care: No Living arrangements: alone Occupation/Education: retired Gender identity (if verbalized by the patient): Female Sexual Orientation (if Verbalized by the Patient): Straight or Heterosexual Spiritual care concerns: No Meds Home Medications and Allergies Home Medications Medication Instructions Recorded Confirmed Type cyanocobalamin (vitamin B-12) 1,000 mcg subcut MONTHLY 04/01/19 06/21/22 History 1,000 mcg/mL injection solution cholecalciferol (vitamin D3) 25 25 mcg PO DAILY 01/12/21 06/21/22 History mcg (1,000 unit) capsule metoprolol succinate 25 mg See Rx Instructions .Route 01/14/22 06/21/22 Rx tablet,extended release 24 hr .COMPLEX #90 tabs flecainide 100 mg tablet 100 mg PO Q12H #60 tabs 02/17/22 06/21/22 Rx naproxen sodium 220 mg tablet 220 mg PO BID PRN Pain 05/04/22 06/21/22 History (Aleve) meloxicam 15 mg tablet 15 mg PO DAILY #30 tabs 06/02/22 06/21/22 Rx oxycodone-acetaminophen 5 mg-325 1 - 2 tablet PO Q4-6H PRN pain #30 06/02/22 06/21/22 Rx mg tablet tabs cephalexin 500 mg capsule 500 mg PO TID 14 days #42 caps 06/20/22 06/21/22 Rx Allergies Allergy/AdvReac Type Severity Reaction Status Date / Time No Known Allergies Allergy Verified 06/21/22 15:04 Exam Narrative: Mild bloody drainage from the proximal central portion of the wound. The wound edges do appear well approximated. No purulence or erythema. No significant tenderness or fluctuance. Significantly morbidly obese in the hip area. The distal wound appears nicely healed. She has moderate lower extremity edema. Calf nontender. Dark in line along posterior aspect of the mid calf consistent with irritation from the support stockings. No signs of infection or other concerns there. Const: General: no acute dist
[2022-06-22] MEDS: ACETAMINOPHEN 500 MG TABLET 1000 MG PO (08:57)
--- NOTE | 2022-06-22 09:27 | WPDANESEPPF ---
Anes - Initial Pre Proc Eval Procedure: Operation Date: 06/22/22 11:00 Proposed Procedures p Incision and Drainage Right Hip, Possible Poly Exhange - Aryan Mary MD Date/Time: 06/22/22 09:27 Surgeon: Aryan Mary MD Pre Op Diagnosis: s/p right total hip Patient Data Age: 71 Gender: F Height: 1.63 m Weight: 98.6 kg Allergies Allergy/AdvReac Type Severity Reaction Status Date / Time No Known Allergies Allergy Verified 06/22/22 08:50 Home Medications Medication Instructions Recorded Confirmed Type cyanocobalamin (vitamin B-12) 1,000 mcg subcut MONTHLY 04/01/19 06/22/22 History 1,000 mcg/mL injection solution cholecalciferol (vitamin D3) 25 25 mcg PO DAILY 01/12/21 06/22/22 History mcg (1,000 unit) capsule metoprolol succinate 25 mg See Rx Instructions .Route 01/14/22 06/22/22 Rx tablet,extended release 24 hr .COMPLEX #90 tabs flecainide 100 mg tablet 100 mg PO Q12H #60 tabs 02/17/22 06/22/22 Rx naproxen sodium 220 mg tablet 220 mg PO BID PRN Pain 05/04/22 06/22/22 History (Aleve) meloxicam 15 mg tablet 15 mg PO DAILY #30 tabs 06/02/22 06/22/22 Rx oxycodone-acetaminophen 5 mg-325 1 - 2 tablet PO Q4-6H PRN pain #30 06/02/22 06/21/22 Rx mg tablet tabs cephalexin 500 mg capsule 500 mg PO TID 14 days #42 caps 06/20/22 06/22/22 Rx Laboratory Tests 06/22/22 09:11 Hgb Pending Hct Pending Patient hx anesthesia problems: post op nausea/vomiting Family hx anesthesia problems: none Results Review: All pre-operative results and documents have been reviewed as part of the pre-operative evaluation. [facility] Past Medical History Medical History Epigastric pain Gastric polyp Gastric polyps History of stress test HLD (hyperlipidemia) Premature ventricular complex Vitamin B12 deficiency Surgical History Surgical History History of cholecystectomy History of shoulder surgery Left S/P wrist surgery Right Status post hysterectomy with oophorectomy Status post total hip replacement, right Family History Family History Father Family history of coronary artery disease Grandparent Family history of lung cancer Mother Patient's mother is in good health Other Diabetes mellitus Family history of cardiovascular disease Family history of malignant neoplasm Family history of malignant neoplasm of breast Social History Social History Smoking status: Never smoker Tobacco type: cigarettes Second hand tobacco smoke exposure: No Additional smoking assessment comments: STATES SNEAKING CIGARETTES A TEEN - DENIES ALL FORMS OF TOBACCO USE Alcohol intake: current Alcohol use details: 2/MONTHLY Substance use: never Substance use type: does not use Lack of Transportation: No Lack of Food: Never True Current Housing: I Have Housing Concerned About Future Housing: No Difficulty Paying Gas/Electric Bills: No Difficulty Paying for Meds: No Currently Unemployed: No Education: Bachelor's Degree Difficulty w/ Childcare or Family Care: No Living arrangements: alone Occupation/Education: retired Gender identity (if verbalized by the patient): Female Sexual Orientation (if Verbalized by the Patient): Straight or Heterosexual Spiritual care concerns: No Anes - Eval Final PreProcedure Day of Procedure 06/22/22 09:27 Patient weight: obese Heart: regular rate and rhythm Lungs: clear to auscultation Airway: Mallampati scale class II Neurological: alert and oriented Last oral intake: >/= 8 hours ASA classification: III Emergent: no Anesthetic plan: proceed Anesthesia type and monitoring: general LMA and standard monitoring Results Review: All pre-operative results and documents have been
[2022-06-22 09:28] LABS: Hemoglobin 9.8 g/dL (12.0-15.0)
[2022-06-22] MEDS: LACTATED RINGERS 1,000 ML 30 ML IV CONT ×2 (09:37→12:28)
[2022-06-22] MEDS: TRANEXAMIC ACID 1,000MG/ISO100 1,000 MG/100 ML BAG 200 MG IVPB (09:57)
--- NOTE | 2022-06-22 10:48 | WPDHPUPDATE1 ---
History and Physical Update Update Date/Time: 06/22/22 10:48 History and Physical has been reviewed, including an updated exam of the patient. There are NO changes in the patient's condition. Risks, benefits, and alternatives have been discussed and questions answered. Patient agrees to proceed with procedure.
[2022-06-22] MEDS: ceFAZolin 2 GM/D5W 50 ML 2 GM/50 ML BAG IVPB ×2 (10:56→17:50)
[2022-06-22] MEDS: VANCOMYCIN HCL 1,000 MG VIAL 1000 MG TOPICAL (11:57)
[2022-06-22] MEDS: fentaNYL CITRATE INJ (*CRX) 100 MCG/2 ML VIAL 25 MCG IV PUSH ×2 (13:03→13:08)
--- NOTE | 2022-06-22 13:39 | SUR.PHASEI ---
Patient meets PACU discharge criteria, unit bed unavailable at this time. Patient placed in extended recovery status at 1325.
--- NOTE | 2022-06-22 15:24 | ADMGEN ---
This patient, Leonarda Jean, was admitted to [facility] Surg Room 312-01. Patient/family oriented to hospital policies and general routines including ID bracelet, bed and alarms, visiting hours, pain management, procedures, bathroom and other care routines, personal items, smoking policy, room service/diet, and visiting hours. Information on how to activate the Rapid Response Team has been discussed. Patient/Family are encouraged to report perceived risks to care and to ask questions if they do not understand what they are told or what they should do.
[2022-06-22] MEDS: SENNA/DOCUSATE SODIUM TABLET 2 TAB PO (16:07)
--- NOTE | 2022-06-22 16:22 | W.PM.PROC2 ---
Procedure Note - Detailed Date of Procedure 06/22/22 Pre-op Diagnosis Postoperative subcutaneous wound hematoma status post right total hip arthroplasty. Post-op Diagnosis Same Procedure Performed Irrigation and debridement with evacuation of the right hip subcutaneous hematoma. Surgeon Aryan Mary MD Anesthesia General Indications Persistent wound draining postoperatively. Bloody drainage began 1 week ago, and did not slow down significantly with appropriate local wound care. Findings Extensive hematoma in the subcutaneous tissues. Very large subcutaneous tissue envelope. Fascia intact. No signs of infection. Tissues otherwise appeared quite healthy. Description of Procedure Preoperative antibiotics given. General anesthetic administered. Patient carefully placed in the lateral decubitus position. Wound prepped and draped in usual sterile fashion. Previous incision was opened. Significant hematoma evacuated. Tissues otherwise appeared healthy. The deep fascia was carefully assessed and appeared entirely normal. Internal and external rotation of the hip with the trochanter passing underneath the fascia did not demonstrate any gapping or opening in the fascial tissue whatsoever. There was no pressure behind the capsule, and no evidence of continuity with the subcutaneous hematoma. The subcutaneous tissues were significantly distended and there was tracking of the hematoma through the tissues significantly. After debridement the tissue appeared quite healthy and viable. 5 minute Betadine dilute soak was performed. Additional irrigation up to 6 L. The wound was closed in layers with interrupted monofilament suture without undue tension. Mildred placed in the skin to allow for some drainage. The Prevena wound VAC device was placed and fit very nicely. The patient was extubated and brought to the recovery room in stable condition. There were no complications. Estimated Blood Loss -20.0 Pathology Yes (Gram stain negative.) Complications No immediate complications Condition Stable Disposition PACU [facility] Billing Surgery - Charge Forward: Surgery Billing
[2022-06-22] MEDS: FAMOTIDINE 20 MG TABLET PO (20:06)
[2022-06-22] MEDS: FLECAINIDE ACETATE 100 MG TABLET PO (20:07)
[2022-06-22] MEDS: BENZOCAINE/MENTHOL (*BKC) 18 EA LOZENGE 1 LOZENGE PO (23:28)
[2022-06-23] MEDS: ceFAZolin 2 GM/D5W 50 ML 2 GM/50 ML BAG IVPB ×2 (02:11→11:38)
[2022-06-23 03:33] VITALS: BP 102/48; PULSE 71; RESP 17; TEMP 36.4; O2SAT 99
[2022-06-23 06:17] LABS: Basophils Percent Auto 0.1 % (0.2-1.2); Hematocrit 26.3 % (37.0-47.0); Hemoglobin 8.3 g/dL (12.0-15.0); Immature Granulocyte Absolute 0.06 K/mm3 (0.00-0.031); Immature Granulocyte Percent A 0.8 % (0-0.5); Lymphocytes Absolute Auto 1.31 K/mm3 (0.9-3.2); Lymphocytes Percent Auto 17.9 % (18.3-44.2); Mean Corpuscular HGB Conc 31.6 g/dl (32-36); Mean Corpuscular Hemoglobin 28.6 pg (26-34); Mean Corpuscular Volume 90.7 fl (80-100); Mean Platelet Volume 8.6 fl (7.4-10.4); Monocytes Absolute Auto 0.8 K/mm3 (0.1-0.6); Monocytes Percent Auto 10.2 % (2.6-8.5); Neutrophils Absolute Auto 5.2 K/mm3 (1.3-6.7); Platelet Count Result 379 k/mm3 (150-375); Red Cell Distribution Width 15.5 % (11.5-14.5); White Blood Count 7.3 K/mm3 (4.5-10.0)
[2022-06-23 06:35] LABS: Anion Gap 2 mmol/L (8-16); Blood Urea Nitrogen 13 mg/dL (7-17); Calcium 8.3 mg/dL (8.4-10.2); Carbon Dioxide 26 mmol/L (22-30); Chloride 106 mmol/L (98-107); Estimated CRCL calculation 59 ml/min; Estimated Glomerular Filt Rate > 60; Glucose 97 mg/dL (65-110); Potassium 3.9 mmol/L (3.4-5.0); Sodium 134 mmol/L (137-145)
[2022-06-23 08:00] VITALS: PULSE 69; RESP 16; O2SAT 95
[2022-06-23] MEDS: SENNA/DOCUSATE SODIUM TABLET 2 TAB PO (08:50)
[2022-06-23] MEDS: FAMOTIDINE 20 MG TABLET PO (08:50)
[2022-06-23 08:51] VITALS: PULSE 62
[2022-06-23] MEDS: FLECAINIDE ACETATE 100 MG TABLET PO (08:51)
[2022-06-23] MEDS: MELOXICAM 7.5 MG TABLET 15 MG PO (08:52)
[2022-06-23 08:53] VITALS: PULSE 62
[2022-06-23] MEDS: METOPROLOL SUCCINATE EXT REL 25 MG TABCR PO (08:53)
[2022-06-23 10:00] VITALS: BP 97/57; PULSE 62; RESP 16; TEMP 36.7; O2SAT 100
[2022-06-23 14:00] VITALS: BP 102/53; PULSE 83; RESP 20; TEMP 36.6; O2SAT 99
--- NOTE | 2022-06-23 14:33 | PM.DS ---
DS: Admitting Diagnosis Discharge Date 06/23/22 Admitting Diagnosis Hematoma of post op hip replacement. DS: Discharge Diagnosis Discharge Diagnosis (1) Hematoma of surgical wound of skin after surgical procedure: Status: Acute Assessment and Plan: Postop day 1: Irrigation and debridement with evacuation of the right hip subcutaneous hematoma. Patient tolerated procedure well. No complications. Pain manageable without pain medication. No numbness or tingling. Notes she feels significantly better then she did prior to surgery. No drainage from wound at this time. We discussed discharge instructions. She shows good understanding. Close follow up appointments have been made. DS: Summary Hospital Course Reason for hospitalization: Post op hematoma and bleeding wound from total hip arthroplasty. Hospital Course: Patient tolerated procedure well. Kept overnight for monitoring and recheck on blood counts. No draining from wound today. Time Spent with Patient Time attestation: Total time spent providing and/or coordinating discharge services: Exam Narrative: Overweight 71 y/o female. Resting comfortably in bed. Wearing compression socks bilaterally. Dressing dry and intact with no drainage. No swelling. No ecchymosis. No erythema. No hematoma. Good range of motion. Calf nontender. Thigh nontender. Neurologic status intact. No varicosities. Distal pulses palpable. DS: Data Data Completed and Pending Labs on day of discharge: Labs from last 24 hours 06/23/22 06/23/22 06:08 06:08 WBC 7.3 RBC 2.90 L Hgb 8.3 L Hct 26.3 L MCV 90.7 MCH 28.6 MCHC 31.6 L RDW 15.5 H Plt Count 379 H MPV 8.6 Immature Gran % (Auto) 0.8 H Neut % (Auto) 71.0 Lymph % (Auto) 17.9 L [place] % (Auto) 10.2 H Eos % (Auto) 0.0 Baso % (Auto) 0.1 L Lymph # (Auto) 1.31 [place] # (Auto) 0.8 H Eos # (Auto) 0.0 Baso # (Auto) 0.0 Abs Immat Gran (auto) 0.06 H Absolute Neuts (auto) 5.2 Absolute Nucleated RBC 0.0 Nucleated RBC % 0.0 Sodium 134 L Potassium 3.9 Chloride 106 Carbon Dioxide 26 Anion Gap 2 L BUN 13 Creatinine 0.90 Estim Creat Clear Calc 59 Estimated GFR > 60 Glucose 97 Calcium 8.3 L Preliminary micro results at discharge 06/22/22 11:33 Anaerobic Culture - Preliminary Hip Right Discharge Plan Discharge Patient Disposition: Home, Self-Care Discharge Instructions: See green instruction sheets. Call office with any questions or concerns. Patient Instructions: Hematoma (ED), Negative Pressure Wound Therapy (GEN) Stand Alone Forms: General Discharge Instructions Follow-up/Referrals: Mallory Cruz PA [Physician Chlorinator] - Discharge Medications: Continued flecainide 100 mg tablet 100 mg PO Q12H Qty: 60 5RF cholecalciferol (vitamin D3) 25 mcg (1,000 unit) capsule 25 mcg PO DAILY cephalexin 500 mg capsule 500 mg PO TID 14 Days Qty: 42 0RF naproxen sodium [Aleve] 220 mg Tablet 220 mg PO BID PRN (Reason: Pain) Hold Instructions: Resume on 07/07/22. Hold while takin Meloxicam meloxicam 15 mg tablet 15 mg PO DAILY Qty: 30 0RF Rx Instructions: Cut in half. Take 1/2 in morning and 1/2 at night. Take with food. Stop if stomach upset. oxycodone-acetaminophen 5-325 mg tablet 1 - 2 tablet PO Q4-6H MDD 6 PRN (Reason: pain) Qty: 30 0RF cyanocobalamin (vitamin B-12) 1,000 mcg/mL solution 1,000 mcg SUB-Q MONTHLY Label Comments: TAKES ON OF THE MONTH metoprolol succinate 25 mg tablet extended release 24 hr See Rx Instructions .ROUTE .COMPLEX Qty: 90 2RF Dose Instruction: TAKE ONE TABLET BY MOUTH ONCE DAILY Rx Instructions: TAKE ONE TABLET BY MOUTH ONCE DAILY
== END 2022-06-23 15:55 | disposition home or self-care (01) ==
LOC: ANHSURGERY 11:04 → ANH3MEDSUR 15:13
PROVIDERS: Anesthesiology; Physician Assistant Surgical; PCP Family Medicine; Visit Provider Orthopaedic Surgery
PROC: (CPT 11042; principal; 2022-06-22 11:00)
DX: L76.32 Postprocedural hematoma of skin and subcutaneous tissue following other procedure (principal); Y83.8 Other surgical procedures as the cause of abnormal reaction of the patient, or of later complication, without mention of misadventure at the time of the procedure; Z96.641 Presence of right artificial hip joint; E78.5 Hyperlipidemia, unspecified; I49.3 Ventricular premature depolarization; E53.8 Deficiency of other specified B group vitamins; E66.9 Obesity, unspecified; Z68.37 Body mass index [BMI] 37.0-37.9, adult
CPT/HCPCS: 11042; 36415; 80048; 85014; 85018; 85025; 86850; 86900; 86901; 87070; 87075; 87205; 97110; 97161; 97165; 97535; A9270; J0131; J0690; J1100; J2250; J2405; J2704; J3010; J3370; J7120

== ENCOUNTER 2022-07-27 10:27 | Outpatient (CLI) | payer MEDICARE, SELFPAY ==
[2022-07-27 19:32] LABS: Basophils Percent Auto 0.3 % (0.2-1.2); Eosinophils Absolute Auto 0.1 K/mm3 (0-0.3); Eosinophils Percent Auto 1.6 % (0-4.4); Hematocrit 42.1 % (37.0-47.0); Hemoglobin 12.5 g/dL (12.0-15.0); Immature Granulocyte Absolute 0.02 K/mm3 (0.00-0.031); Immature Granulocyte Percent A 0.3 % (0-0.5); Lymphocytes Absolute Auto 1.78 K/mm3 (0.9-3.2); Lymphocytes Percent Auto 25.9 % (18.3-44.2); Mean Corpuscular HGB Conc 29.7 g/dl (32-36); Mean Corpuscular Hemoglobin 28.7 pg (26-34); Mean Corpuscular Volume 96.6 fl (80-100); Monocytes Absolute Auto 0.7 K/mm3 (0.1-0.6); Monocytes Percent Auto 10.3 % (2.6-8.5); Neutrophils Absolute Auto 4.2 K/mm3 (1.3-6.7); Neutrophils Percent Auto 61.6 % (45.5-73.1); Red Blood Count 4.36 M/mm3 (4.2-5.4); Red Cell Distribution Width 14.6 % (11.5-14.5); White Blood Count 6.9 K/mm3 (4.5-10.0)
[2022-07-27 19:57] LABS: Platelet Estimate Increased (Adequate)
[2022-07-27 19:58] LABS: Hypochromasia 1+ (NORMAL); Schistocytes None Seen (NORMAL)
== END 2022-07-27 10:28 | disposition home or self-care (01) ==
LOC: ANHGOSHLAB 10:29
PROVIDERS: PCP Family Medicine; Visit Provider Family Medicine
DX: D62 Acute posthemorrhagic anemia (principal)
CPT/HCPCS: 36415; 85025

== ENCOUNTER 2023-01-23 11:23 | Outpatient (CLI) | payer MEDICARE, SELFPAY ==
[2023-01-23 12:49] LABS: Basophils Percent Auto 0.1 % (0.2-1.2); Eosinophils Absolute Auto 0.1 K/mm3 (0-0.3); Eosinophils Percent Auto 1.7 % (0-4.4); Hematocrit 42.5 % (37.0-47.0); Hemoglobin 12.8 g/dL (12.0-15.0); Immature Granulocyte Absolute 0.03 K/mm3 (0.00-0.031); Immature Granulocyte Percent A 0.4 % (0-0.5); Lymphocytes Absolute Auto 1.65 K/mm3 (0.9-3.2); Lymphocytes Percent Auto 23.1 % (18.3-44.2); Mean Corpuscular HGB Conc 30.1 g/dl (32-36); Mean Corpuscular Hemoglobin 28.1 pg (26-34); Mean Corpuscular Volume 93.4 fl (80-100); Mean Platelet Volume 9.8 fl (7.4-10.4); Monocytes Absolute Auto 0.6 K/mm3 (0.1-0.6); Monocytes Percent Auto 8.5 % (2.6-8.5); Neutrophils Absolute Auto 4.7 K/mm3 (1.3-6.7); Neutrophils Percent Auto 66.2 % (45.5-73.1); Platelet Count Result 251 k/mm3 (150-375); Red Blood Count 4.55 M/mm3 (4.2-5.4); Red Cell Distribution Width 14.1 % (11.5-14.5); White Blood Count 7.2 K/mm3 (4.5-10.0)
[2023-01-23 12:58] LABS: Albumin Level 4.1 g/dL (3.5-5.1); Estimated Glomerular Filt Rate > 60; Glucose 87 mg/dL (65-110)
[2023-01-23 13:01] LABS: Urine Cotinine NEGATIVE
== END 2023-01-23 11:24 | disposition home or self-care (01) ==
LOC: ANHSURGERY 11:25
PROVIDERS: PCP Family Medicine; Visit Provider Orthopaedic Surgery
DX: Z01.818 Encounter for other preprocedural examination (principal); M16.12 Unilateral primary osteoarthritis, left hip
CPT/HCPCS: 80307; 82040; 82565; 82947; 83036; 85025; 87081

== ENCOUNTER 2023-02-16 01:03 | Day surgery (SDC) | payer MEDICARE, SELFPAY ==
--- NOTE | 2023-01-23 11:27 | PC.NURSE ---
PRE-OP INSTRUCTIONS, PLEASE READ CAREFULLY Report to the Outpatient Waiting Room, entrance under the green pavilion located off [facility], at time _0600_ on date _02/16/23_. Planned Procedure Time: _0730_. PACK A SMALL OVERNIGHT BAG AND BRING YOUR WALKER Time changes happen often and if your time is changed the preop area will call you the afternoon before. - You and your visitor will be asked to self-screen and do not enter if you have any COVID symptoms. - A mask is optional within the hospital at this time. -VISITING HOURS 8AM-8PM Patients may have clear liquids (water, carbonated beverages, clear teas, apple juice) until 3 hours (0430 AM) prior to surgery with a maximum of 20 ounces. - No food from midnight until time of surgery Take the following medications with a SIP of water the morning of surgery: _FLECAINIDE, METOPROLOL_ DO NOT STOP ANY OF YOUR OTHER PRESCRIPTION MEDICATIONS PRIOR TO SURGERY ?EXCEPT THE FOLLOWING Medications to discontinue - ___NONE___ Date to take last dose Please no make-up, nail turkmen, hairspray, perfume, deodorant, or body powder the day of surgery. No jewelry (including any body piercings) or valuables the day of surgery, leave them at home. Please take a shower or bath the night before, or the morning of, surgery with an antibacterial soap. Wear comfortable, loose fitting clothing. - Jewelry must be removed prior to entering the operating room. Rings and piercings that are not removed may be cut off. - The hospital will not accept responsibility for valuables. - Please leave all valuables, including medications, at home the day of surgery. If you are going home after surgery, a licensed pharmacy delivery driver must drive you home. - NO public transportation without another adult if you receive anesthesia. - We recommend that an adult stay with you for 24 hours following discharge. - We also recommend that you do not drive, make important decision, drink alcoholic beverages, or take any drugs that were not prescribed by your health care provider for at least 24 hours after your discharge time. Follow any additional instructions given to you from your surgeon. If you or anyone in your household have experienced Covid symptoms in the past week, please notify your surgeon or the nurse liaison at the phone number below for possible testing. Instructions given to _PATIENT_and asked if any additional questions and then verbalized understanding. Patient advised to call surgeon office or pre surgery nurse liaison [phone] if any additional questions.
[2023-01-23 11:37] VITALS: BP 136/66; PULSE 54; RESP 18; TEMP 37.1; O2SAT 100; BMI 36.3
[2023-02-16] VITALS (15 sets, daily range): BP systolic 99–142; BP diastolic 56–91; PULSE 63–80; RESP 12–18; TEMP 35.7–36.9; O2SAT 95–100
--- NOTE | ~2023-02-16 | XR_ITS ---
Left Hip Technique: Portable AP and lateral views Clinical History: Status post hip arthroplasty Findings: Patient is status post left hip arthroplasty. Orthopedic hardware alignment appears anatomi c. No hardware complication is evident. Subcutaneous emphysema and swelling is likely postoperative i n nature. No acute osseous fracture is seen. Impression: Status post total left hip arthroplasty, without evidence of hardware complication. Reviewed, dictated and finalized at location . Impression: Status post total left hip arthroplasty, without evidence of hardware complicat ion.
[2023-02-16] MEDS: LACTATED RINGERS 1,000 ML 30 ML IV CONT ×2 (06:30→09:34)
[2023-02-16] MEDS: TRANEXAMIC ACID 1,000MG/ISO100 1,000 MG/100 ML BAG 200 MG IVPB (06:35)
[2023-02-16] MEDS: ACETAMINOPHEN 500 MG TABLET 1000 MG PO ×4 (06:38→21:50)
--- NOTE | 2023-02-16 07:05 | WPDHPUPDATE1 ---
History and Physical Update Update Date/Time: 02/16/23 07:05 History and Physical has been reviewed, including an updated exam of the patient. There are NO changes in the patient's condition. Risks, benefits, and alternatives have been discussed and questions answered. Patient agrees to proceed with procedure.
--- NOTE | 2023-02-16 07:07 | WPDANESEPPF ---
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 Patient Data Age: 72 Gender: F Height: 1.64 m Weight: 98.3 kg Last Vital Signs Temp 37.1 C 01/23/23 11:37 Pulse 54 L 01/23/23 11:37 Resp 18 01/23/23 11:37 BP 136/66 01/23/23 11:37 Pulse Ox 100 01/23/23 11:37 O2 Del Method Room Air 01/23/23 11:37 Allergies Allergy/AdvReac Type Severity Reaction Status Date / Time No Known Allergies Allergy Verified 02/16/23 07:06 Home Medications Medication Instructions Recorded Confirmed Type cyanocobalamin (vitamin B-12) 1,000 mcg subcut MONTHLY 04/01/19 01/23/23 History 1,000 mcg/mL injection solution cholecalciferol (vitamin D3) 25 25 mcg PO DAILY 01/12/21 01/23/23 History mcg (1,000 unit) capsule losartan 100 mg tablet 100 mg PO DAILY 07/25/22 01/23/23 History flecainide 100 mg tablet See Rx Instructions .Route 08/06/22 01/23/23 Rx .COMPLEX #180 tabs CPAP #1 ea 10/05/22 01/23/23 Rx metoprolol succinate 25 mg See Rx Instructions .Route 11/10/22 01/23/23 Rx tablet,extended release 24 hr .COMPLEX #90 tabs ferrous sulfate 325 mg (65 mg See Rx Instructions .Route 01/17/23 01/23/23 Rx iron) tablet,delayed release .COMPLEX #30 tabs Patient hx anesthesia problems: none Family hx anesthesia problems: none Results Review: All pre-operative results and documents have been reviewed as part of the pre-operative evaluation. [facility] Past Medical History Medical History Epigastric pain Gastric polyp Gastric polyps History of stress test HLD (hyperlipidemia) Premature ventricular complex Vitamin B12 deficiency Surgical History Surgical History History of cholecystectomy History of hip surgery (~06/22/22) Irrigation and debridement with evacuation of the right hip subcutaneous hematoma. History of shoulder surgery Left S/P wrist surgery Right Status post hysterectomy with oophorectomy Status post total hip replacement, right (~06/02/22) Family History Family History Father Family history of coronary artery disease Grandparent Family history of lung cancer Mother Patient's mother is in good health Other Diabetes mellitus Family history of cardiovascular disease Family history of malignant neoplasm Family history of malignant neoplasm of breast Social History Social History Smoking status: Former smoker Tobacco type: cigarettes Second hand tobacco smoke exposure: No Additional smoking assessment comments: STATES SNEAKING CIGARETTS A TEEN - DENIES ALL FORMS OF TOBACCO USE Alcohol intake: current Alcohol use details: MAYBE 2/MONTH Substance use: never Substance use type: does not use Lack of Transportation: No Lack of Food: Never True Current Housing: I Have Housing Concerned About Future Housing: No Difficulty Paying Gas/Electric Bills: No Difficulty Paying for Meds: No Currently Unemployed: No Education: Bachelor's Degree Difficulty w/ Childcare or Family Care: No Living arrangements: alone Occupation/Education: retired Gender identity (if verbalized by the patient): Female Sexual Orientation (if Verbalized by the Patient): Straight or Heterosexual Spiritual care concerns: No Anes - Eval Final PreProcedure Day of Procedure 02/16/23 07:07 Patient weight: obese Heart: regular rate and rhythm Lungs: clear to auscultation Airway: Mallampati scale class II Neurological: alert and oriented Last oral intake: >/= 8 hours ASA classification: III Emergent: no Anesthetic plan: proceed Anesthesia type and monitori
[2023-02-16] MEDS: ceFAZolin 2 GM/D5W 50 ML 2 GM/50 ML BAG IVPB ×2 (07:28→16:24)
[2023-02-16] MEDS: TRANEXAMIC ACID 1,000 MG/10 ML AMPUL 1000 MG IV PUSH (08:56)
[2023-02-16] MEDS: fentaNYL CITRATE INJ (*CRX) 100 MCG/2 ML VIAL 25 MCG IV PUSH ×4 (09:59→10:32)
--- NOTE | 2023-02-16 11:04 | ADMGEN ---
This patient, Leonarda Jean, was admitted to Medical Room 254-01. Patient/family oriented to hospital policies and general routines including ID bracelet, bed and alarms, visiting hours, pain management, procedures, bathroom and other care routines, personal items, smoking policy, room service/diet, and visiting hours. Information on how to activate the Rapid Response Team has been discussed. Patient/Family are encouraged to report perceived risks to care and to ask questions if they do not understand what they are told or what they should do.
[2023-02-16] MEDS: FERROUS SULFATE 325 MG TABLET DR PO (12:02)
--- NOTE | 2023-02-16 12:19 | W.PM.PROC2 ---
Procedure Note - Detailed Date of Procedure 02/16/23 Pre-op Diagnosis Prim OA Lt hip Post-op Diagnosis Same Procedure Performed Left Total Hip Arthroplasty Surgeon Aryan Mary MD Pbx Mechanic Mallory Curz PA-C Anesthesia General Findings Severe disease. Good bone quality. Significant adipose in the hip area. Multilevel closure of the deep tissues. Deep drain placed particularly in light of history of prior hematoma formation on the contralateral hip. Additional tranexamic acid given prior to closure. Description of Procedure The patient was given preoperative antibiotics. A general anesthetic was administered. The patient was carefully placed in the lateral decubitus position on the PEG board. The shoulders and hips were carefully positioned for component and leg length positioning reference. The hip was prepped and draped in the usual sterile fashion. A longitudinal incision was created over the posterior aspect of the greater trochanter. Careful dissection was brought down through the deep fascia with electrocautery. A minimally invasive optimized posterior approach to the hip was performed. The short external rotators and capsule were taken down in an L-shaped capsulotomy. The tissue was tagged for later repair using number 2 high strength suture. The femoral neck was measured and taken in situ. The femoral head was removed. The acetabulum was carefully exposed. The inferior capsule was released. The labrum was resected. The acetabulum was sequentially reamed to the intended cup size. The cup was impacted into position with excellent press-fit. Typical anatomic landmarks, including the bony contact points as well as the inferior transverse acetabular ligament were used to confirm cup positioning with preoperative templating. Attention was turned to the femur, which was carefully exposed. The hip was reamed and then broached sequentially. Excellent press-fit was obtained with the broach. The hip was trialed. Measurements were utilized, including the lesser trochanter as well as the center of the femoral head and the tip of the trochanter, and excellent assessment of the offset and leg lengths were confirmed. The real component was impacted into position. Trialing confirmed appropriate leg length and offset with soft tissue balancing as well apparent feel of the leg, both at the knee and the heel. Soft tissues were assessed using the the iliotibial band. Reduction of the posterior capsule and external rotators were also used as a secondary assessment. The hip was copiously irrigated with pulsatile lavage antibiotic solution periodically throughout the procedure. The real components were then assembled and reduced. The hip was stable throughout typical maneuvers, including extension, external rotation to 70 degrees, the position of sleep as well as flexion to 90 degrees with internal rotation past 45 degrees. The shake test confirmed stability without impingement. Osteophytes were removed as necessary. The short external rotators and capsule were repaired back to the posterior trochanter through drill holes. The deep fascia was repaired with running number 2 Quill suture, followed by 0 Stratafix suture and 2-0 Stratafix suture in the dermis. Steri-Strips were placed on the skin, followed by a sterile silver occlusive dressing. There were no complications. Meticulous hemostasis was maintained with the AquaMantys device. The patient was brought to the recovery room in stable condition. There were no complications. Physician hardware sales assistant, Mallory Cruz PA-C, required for surgery; including patient positioning, draping, tissue retraction, maintaining instrument position, hip dislocation/ relocation, wound closure, and dressing placement. Implants The Accolade II hip stem, 127 degree size 4 , was utilized with excellent press-fit. The 52 mm Trident II acetabular component was impacted with excellent press-fit stability. 10 roberta
[2023-02-16] MEDS: MELOXICAM 7.5 MG TABLET PO (16:24)
[2023-02-16] MEDS: SENNA/DOCUSATE SODIUM TABLET 2 TAB PO (16:24)
[2023-02-16] MEDS: ASPIRIN 81 MG ENTERIC TABLET PO (16:24)
[2023-02-16] MEDS: FLECAINIDE ACETATE 100 MG TABLET BY MOUTH (21:47)
[2023-02-16] MEDS: FAMOTIDINE 20 MG TABLET PO (21:47)
[2023-02-17] MEDS: ceFAZolin 2 GM/D5W 50 ML 2 GM/50 ML BAG IVPB ×2 (00:15→07:58)
[2023-02-17 00:37] VITALS: BP 108/51; PULSE 70; RESP 18; TEMP 36.9; O2SAT 99
[2023-02-17 04:28] VITALS: BP 100/49; PULSE 69; RESP 18; TEMP 37.1; O2SAT 100
[2023-02-17] MEDS: ACETAMINOPHEN 500 MG TABLET 1000 MG PO ×3 (04:50→16:44)
[2023-02-17 06:09] LABS: Basophils Percent Auto 0.2 % (0.2-1.2); Eosinophils Percent Auto 0.1 % (0-4.4); Hematocrit 33.8 % (37.0-47.0); Hemoglobin 10.4 g/dL (12.0-15.0); Immature Granulocyte Absolute 0.08 K/mm3 (0.00-0.031); Immature Granulocyte Percent A 0.5 % (0-0.5); Lymphocytes Absolute Auto 1.68 K/mm3 (0.9-3.2); Lymphocytes Percent Auto 11.3 % (18.3-44.2); Mean Corpuscular HGB Conc 30.8 g/dl (32-36); Mean Corpuscular Hemoglobin 28.4 pg (26-34); Mean Corpuscular Volume 92.3 fl (80-100); Mean Platelet Volume 9.6 fl (7.4-10.4); Monocytes Absolute Auto 1.3 K/mm3 (0.1-0.6); Monocytes Percent Auto 8.7 % (2.6-8.5); Neutrophils Absolute Auto 11.8 K/mm3 (1.3-6.7); Neutrophils Percent Auto 79.2 % (45.5-73.1); Platelet Count Result 236 k/mm3 (150-375); Red Blood Count 3.66 M/mm3 (4.2-5.4); Red Cell Distribution Width 13.4 % (11.5-14.5); White Blood Count 14.9 K/mm3 (4.5-10.0)
[2023-02-17 06:16] LABS: Anion Gap 5 mmol/L (8-16); Blood Urea Nitrogen 19 mg/dL (7-17); Calcium 8.5 mg/dL (8.4-10.2); Carbon Dioxide 27 mmol/L (22-30); Chloride 105 mmol/L (98-107); Estimated CRCL calculation 53 ml/min; Estimated Glomerular Filt Rate > 60; Glucose 101 mg/dL (65-110); Potassium 3.8 mmol/L (3.4-5.0); Sodium 137 mmol/L (137-145)
--- NOTE | 2023-02-17 07:21 | WPDANESPN ---
Anes - Prog Note Post-Op Date/Time: 02/17/23 07:21 Cardiovascular status: normal Respiratory status: normal Airway patency: baseline Mental status: baseline Post-Op hydration status: normal Vital Signs: Last Vital Signs Temp 98.7 F 02/17/23 04:28 Pulse 69 02/17/23 04:28 Resp 18 02/17/23 04:28 BP 100/49 L 02/17/23 04:28 Pulse Ox 100 02/17/23 04:28 O2 Del Method Room Air 02/16/23 21:25 O2 Flow Rate 8 02/16/23 09:50 Pain Score (VAS): 0/10 I/O: Intake & Output 02/16/23 02/16/23 02/17/23 15:59 23:59 07:59 Intake Total 850 840 50 Output Total 35 Balance 850 840 15 Laboratory Tests 02/17/23 05:22 02/17/23 05:22 02/16/23 02/16/23 02/16/23 06:27 06:27 06:27 WBC RBC Hgb Hct MCV MCH MCHC RDW Plt Count MPV Immature Gran % (Auto) Neut % (Auto) Lymph % (Auto) Wol[place] % (Auto) Eos % (Auto) Baso % (Auto) Lymph # (Auto) Wolfe # (Auto) Eos # (Auto) Baso # (Auto) Abs Immat Gran (auto) Absolute Neuts (auto) Absolute Nucleated RBC Nucleated RBC % Sodium Potassium Chloride Carbon Dioxide Anion Gap BUN Creatinine Estim Creat Clear Calc Estimated GFR Glucose Calcium Blood Type O Positive Antibody Screen Positive Antibody Identification Anti-C Anti-S Warm Auto Antibody Antigen Identification C Antigen - NEGATIVE CHRISTIAN, IgG Interpret CHRISTIAN, Poly Interpret CHRISTIAN, Complement Interp Crossmatch Enhanced Crossmatch 02/16/23 02/17/23 06:27 05:22 WBC 14.9 H RBC 3.66 L Hgb 10.4 L Hct 33.8 L MCV 92.3 MCH 28.4 MCHC 30.8 L RDW 13.4 Plt Count 236 MPV 9.6 Immature Gran % (Auto) 0.5 Neut % (Auto) 79.2 H Lymph % (Auto) 11.3 L Wolfe % (Auto) 8.7 H Eos % (Auto) 0.1 Baso % (Auto) 0.2 Lymph # (Auto) 1.68 Wolfe # (Auto) 1.3 H Eos # (Auto) 0.0 Baso # (Auto) 0.0 Abs Immat Gran (auto) 0.08 H Absolute Neuts (auto) 11.8 H Absolute Nucleated RBC 0.0 Nucleated RBC % 0.0 Sodium 137 Potassium 3.8 Chloride 105 Carbon Dioxide 27 Anion Gap 5 L BUN 19 H Creatinine 1.00 Estim Creat Clear Calc 53 Estimated GFR > 60 Glucose 101 Calcium 8.5 Blood Type Antibody Screen Antibody Identification Antigen Identification S Antigen - NEGATIVE CHRISTIAN, IgG Interpret 3+ CHRISTIAN, Poly Interpret 3+ CHRISTIAN, Complement Interp Negative Crossmatch See Detail Enhanced Crossmatch See Detail Post-procedural complaints: none Patient Feedback: Patient satisfied with anesthetic care.
[2023-02-17 09:10] VITALS: BP 100/50; PULSE 71; RESP 16; TEMP 36.6; O2SAT 100
[2023-02-17] MEDS: FERROUS SULFATE 325 MG TABLET DR PO (09:21)
[2023-02-17] MEDS: FAMOTIDINE 20 MG TABLET PO (09:21)
[2023-02-17] MEDS: SENNA/DOCUSATE SODIUM TABLET 2 TAB PO (09:21)
[2023-02-17] MEDS: ASPIRIN 81 MG ENTERIC TABLET PO (09:21)
[2023-02-17] MEDS: MELOXICAM 7.5 MG TABLET PO ×2 (09:21→16:44)
[2023-02-17 12:36] VITALS: BP 120/64; PULSE 74; RESP 16; TEMP 36.2; O2SAT 100
--- NOTE | 2023-02-17 15:03 | PM.DS ---
DS: Admitting Diagnosis Discharge Date 02/17/23 Admitting Diagnosis Hip arhtritis. DS: Discharge Diagnosis Discharge Diagnosis (1) Primary osteoarthritis of left hip: Code(s): M16.12 - Unilateral primary osteoarthritis, left hip Status: Acute Assessment and Plan: Postop day 1: Left total Hip arthroplasty. Patient tolerated procedure well. No complications. Pain manageable with pain medication. No numbness or tingling. We had a lengthy discussion regarding postoperative wound care, limitations, expectations, and exercises. Patient shows good understanding. She has had initial physical therapy and is tolerating it well. DVT prophylaxis: 81 mg baby aspirin b.i.d. for 14 days. Pain medication: Percocet. Patient has followup appointment with Dr. Mary in 3 weeks. DS: Summary Hospital Course Reason for hospitalization: Total hip arthroplasty Hospital Course: Patient tolerated procedure well. Has had initial PT/OT. No drainage at the time of discharge. Status at Discharge Functional status at discharge: uses cane/walker Overall status at discharge: patient is progressing back to baseline Time Spent with Patient Time attestation: Total time spent providing and/or coordinating discharge services: Exam Narrative: Overweight 72 y/o female. Resting comfortably in bed. Wearing compression socks bilaterally. Dressing dry and intact with no drainage. No swelling. No ecchymosis. No erythema. No hematoma. Good range of motion. Calf nontender. Thigh nontender. Neurologic status intact. No varicosities. Distal pulses palpable. DS: Data Data Completed and Pending Labs on day of discharge: Labs from last 24 hours 02/17/23 02/16/23 02/16/23 05:22 06:27 06:27 WBC 14.9 H RBC 3.66 L Hgb 10.4 L Hct 33.8 L MCV 92.3 MCH 28.4 MCHC 30.8 L RDW 13.4 Plt Count 236 MPV 9.6 Immature Gran % (Auto) 0.5 Neut % (Auto) 79.2 H Lymph % (Auto) 11.3 L [place] % (Auto) 8.7 H Eos % (Auto) 0.1 Baso % (Auto) 0.2 Lymph # (Auto) 1.68 [place] # (Auto) 1.3 H Eos # (Auto) 0.0 Baso # (Auto) 0.0 Abs Immat Gran (auto) 0.08 H Absolute Neuts (auto) 11.8 H Absolute Nucleated RBC 0.0 Nucleated RBC % 0.0 Sodium 137 Potassium 3.8 Chloride 105 Carbon Dioxide 27 Anion Gap 5 L BUN 19 H Creatinine 1.00 Estim Creat Clear Calc 53 Estimated GFR > 60 Glucose 101 Calcium 8.5 Blood Type Antibody Screen Antibody Identification Warm Auto Antibody Antigen Identification S Antigen - NEGATIVE C Antigen - NEGATIVE CHRISTIAN, IgG Interpret 3+ CHRISTIAN, Poly Interpret 3+ CHRISTIAN, Complement Interp Negative Crossmatch See Detail Enhanced Crossmatch See Detail 02/16/23 02/16/23 06:27 06:27 WBC RBC Hgb Hct MCV MCH MCHC RDW Plt Count MPV Immature Gran % (Auto) Neut % (Auto) Lymph % (Auto) [place] % (Auto) Eos % (Auto) Baso % (Auto) Lymph # (Auto) [place] # (Auto) Eos # (Auto) Baso # (Auto) Abs Immat Gran (auto) Absolute Neuts (auto) Absolute Nucleated RBC Nucleated RBC % Sodium Potassium Chloride Carbon Dioxide Anion Gap BUN Creatinine Estim Creat Clear Calc Estimated GFR Glucose Calcium Blood Type O Positive Antibody Screen Positive Antibody Identification Anti-S Anti-C Antigen Identification CHRISTIAN, IgG Interpret CHRISTIAN, Poly Interpret CHRISTIAN, Complement Interp Crossmatch Enhanced Crossmatch Discharge Plan Discharge Patient Disposition: Home, Self-Care Discharge Instructions: See green instruction sheets Stand Alone Forms: General Discharge Instructions Follow-up/Referrals: Mallory Cruz PA [Physician New Car Salesperson] - Discharge Medications: New meloxicam 15 mg tablet 15 mg PO DAILY Qty: 30 0RF Rx Instructions: Cut in half. Take 1/2 in morning and 1/2 at night. Take
== END 2023-02-17 17:20 | disposition home or self-care (01) ==
LOC: ANHSURGERY 07:17 → ANH2MED 10:59
PROVIDERS: Physician Assistant Surgical; PCP Family Medicine; Visit Provider Orthopaedic Surgery
PROC: (CPT 27130; principal; 2023-02-16 07:30)
DX: M16.12 Unilateral primary osteoarthritis, left hip (principal); E78.5 Hyperlipidemia, unspecified; E53.8 Deficiency of other specified B group vitamins; G47.33 Obstructive sleep apnea (adult) (pediatric); E66.9 Obesity, unspecified; Z68.35 Body mass index [BMI] 35.0-35.9, adult; Z23 Encounter for immunization
CPT/HCPCS: 27130; 36415; 73502; 80048; 80307; 81479; 82040; 82565; 82947; 83036; 85025; 86850; 86860; 86870; 86880; 86900; 86901; 86902; 86905; 86922; 86971; 87081; 90471; 90694; 97110; 97116; 97161; 97165; 97530; 97535; A9270; C1776; G0008; J0171; J0330; J0690; J1100; J1170; J1885; J2250; J2270; J2371; J2405; J2704; J2795; J3010; J7120

== ENCOUNTER 2023-08-18 09:01 | Outpatient (CLI) | payer MEDICARE, SELFPAY ==
--- NOTE | ~2023-08-18 | XR_ITS ---
XR hip LT min 2V DATE: 08/18/2023 09:33 INDICATION: Six-month follow-up of left hip replacement TECHNIQUE: AP and lateral views COMPARISON: 04/13/2023 left hip FINDINGS: Status post left total hip arthroplasty. No fracture or dislocation, periosteal reaction or bone destruction. IMPRESSION: Total hip arthroplasty Reviewed, dictated and finalized at location B. IMPRESSION: Total hip arthroplasty
== END 2023-08-18 09:02 | disposition home or self-care (01) ==
PROVIDERS: PCP Family Medicine; Visit Provider Orthopaedic Surgery
DX: Z96.642 Presence of left artificial hip joint (principal)
CPT/HCPCS: 73502

== ENCOUNTER 2023-11-23 17:10 | Emergency (ER) | payer MEDICARE, SELFPAY ==
[2023-11-23 17:11] VITALS: BP 130/72; PULSE 73; RESP 17; TEMP 36.5; O2SAT 99
--- NOTE | 2023-11-23 18:37 | ED.GENADULT ---
HPI - General Adult General Chief complaint: Unspecified Stated complaint: burning ENT x1 month Time Seen by Provider: 11/23/23 17:56 Source: patient Mode of arrival: ambulatory Limitations: no limitations History of Present Illness HPI narrative: This is a 73 year old female that presents to the ER for abnormal sensation in the eyes, nose and throat. Reports this has been ongoing over the last month. She notices it when she is in her apartment. Is concerned she may be having allergies. Has not taken anything for this. Denies any other exposures/new medications. Denies difficulty swallowing or trouble breathing. Related Data Home Medications Medication Instructions Recorded Confirmed cyanocobalamin (vitamin B-12) 1,000 mcg subcut MONTHLY 04/01/19 11/21/23 1,000 mcg/mL injection solution cholecalciferol (vitamin D3) 25 25 mcg PO DAILY 01/12/21 11/21/23 mcg (1,000 unit) capsule Allergies Allergy/AdvReac Type Severity Reaction Status Date / Time No Known Allergies Allergy Verified 11/21/23 09:11 Review of Systems Review of Systems: CONSTITUTIONAL: Denies fever ENT: Denies sore throat RESPIRATORY: Denies dyspnea. All systems reviewed & are unremarkable except as noted in HPI and below PMFSH Past Medical History Medical History Epigastric pain Gastric polyp Gastric polyps History of stress test HLD (hyperlipidemia) Premature ventricular complex Vitamin B12 deficiency Surgical History Surgical History History of cholecystectomy History of hip surgery (~06/22/22) Irrigation and debridement with evacuation of the right hip subcutaneous hematoma. History of shoulder surgery Left S/P wrist surgery Right Status post hysterectomy with oophorectomy Status post left hip replacement (~02/16/23) Status post total hip replacement, right (~06/02/22) Family History Family History Father Family history of coronary artery disease Grandparent Family history of lung cancer Mother Patient's mother is in good health Other Diabetes mellitus Family history of cardiovascular disease Family history of malignant neoplasm Family history of malignant neoplasm of breast Social History Social History (Reviewed 07/09/24 @ 09:11 by DELVIN Valles Smoking status: Former smoker Second hand tobacco smoke exposure: No Alcohol intake: never Alcohol use details: MAYBE 2/MONTH Substance use: never Substance use type: does not use Do You Feel Safe in your Home?: Yes Lack of Transportation: No Lack of Food: Never True Current Housing: I Have Housing Concerned About Future Housing: No Difficulty Paying Gas/Electric Bills: No Difficulty Paying for Meds: No Currently Unemployed: No Education: Bachelor's Degree Difficulty w/ Childcare or Family Care: No Living arrangements: alone Occupation/Education: retired Gender identity (if verbalized by the patient): Female Sexual Orientation (if Verbalized by the Patient): Straight or Heterosexual Spiritual care concerns: Yes (Nondenominational) Exam Narrative: GENERAL: Well-appearing, well-nourished, and in no acute distress. HEAD: Normocephalic, atraumatic. EYES: EOMI. ENT: Nares clear, no rhinorrhea or epistaxis. Mucous membranes moist. Oropharynx without tonsillar hypertrophy exudate or other lesions. Bilateral TMs pearly bryan non-bulging NECK: Supple. No adenopathy or masses. CHEST: Clear to auscultation. No respiratory distress. No wheezes rales or rhonchi HEART: Regular rate and rhythm. No murmur heard. Normal peripheral pulses. EXTREMITIES: Normal range of motion. No edema. SKIN: Warm, dry, no rash. NEURO: No focal deficits. Alert and oriented x3. PSYCH: Normal mood and affect Course Course Emergency Course: Patient updated on her workup an
[2023-11-23 19:53] LABS: Basophils Percent Auto 0.1 % (0.2-1.2); Eosinophils Absolute Auto 0.1 K/mm3 (0-0.3); Eosinophils Percent Auto 1.2 % (0-4.4); Hematocrit 41.1 % (37.0-47.0); Hemoglobin 13.2 g/dL (12.0-15.0); Immature Granulocyte Absolute 0.03 K/mm3 (0.00-0.031); Immature Granulocyte Percent A 0.3 % (0-0.5); Lymphocytes Absolute Auto 1.97 K/mm3 (0.9-3.2); Lymphocytes Percent Auto 21.7 % (18.3-44.2); Mean Corpuscular HGB Conc 32.1 g/dl (32-36); Mean Corpuscular Hemoglobin 28.6 pg (26-34); Mean Corpuscular Volume 89.2 fl (80-100); Mean Platelet Volume 8.8 fl (7.4-10.4); Monocytes Absolute Auto 0.9 K/mm3 (0.1-0.6); Monocytes Percent Auto 9.9 % (2.6-8.5); Neutrophils Absolute Auto 6.1 K/mm3 (1.3-6.7); Neutrophils Percent Auto 66.8 % (45.5-73.1); Platelet Count Result 315 k/mm3 (150-375); Red Blood Count 4.61 M/mm3 (4.2-5.4); Red Cell Distribution Width 13.7 % (11.5-14.5); White Blood Count 9.1 K/mm3 (4.5-10.0)
[2023-11-23 20:02] LABS: Alanine Aminotransferase 11 U/L (6-35); Albumin Level 4.4 g/dL (3.5-5.1); Alkaline Phosphatase 95 U/L (38-126); Anion Gap 9 mmol/L (4-12); Aspartate Amino Transferase 23 U/L (14-36); Bilirubin,Total 0.6 mg/dL (0.2-1.3); Blood Urea Nitrogen 14 mg/dL (7-17); Calcium 9.2 mg/dL (8.4-10.2); Carbon Dioxide 28 mmol/L (22-30); Chloride 102 mmol/L (98-107); Estimated Glomerular Filt Rate > 60; Glucose 89 mg/dL (65-110); Potassium 3.5 mmol/L (3.4-5.0); Sodium 139 mmol/L (137-145)
[2023-11-23 21:44] LABS: Folic Acid 9.8 ng/mL (2.76->20); Vitamin B12 > 1000.0 pg/mL (239-931)
[2023-11-23 22:37] VITALS: BP 142/84; PULSE 74; RESP 20; O2SAT 97
== END 2023-11-23 22:37 | disposition home or self-care (01) ==
PROVIDERS: Emergency Provider Physician Assistant; PCP Family Medicine
DX: H57.89 Other specified disorders of eye and adnexa (principal); R09.89 Other specified symptoms and signs involving the circulatory and respiratory systems; E78.5 Hyperlipidemia, unspecified; E53.8 Deficiency of other specified B group vitamins; Z96.643 Presence of artificial hip joint, bilateral; Z87.891 Personal history of nicotine dependence; Z90.49 Acquired absence of other specified parts of digestive tract; Z90.710 Acquired absence of both cervix and uterus; Z79.899 Other long term (current) drug therapy
CPT/HCPCS: 36415; 80053; 82607; 82746; 85025; 99283

== ENCOUNTER 2024-06-25 15:36 | Outpatient (CLI) | payer MEDICARE, SELFPAY ==
--- OUTSIDE RECORDS SUMMARY | 2024-06-25 16:13 | XMS_ITS | Clinical Summary ---
Author Organization [facility] Address [address] Attn: Epic Prelude ADT [place] [address] Care Team Providers Care Reservoir Engineer Name Role Phone Unavailable Primary Care Provider Unavailabl e Encounters Date Type Department Care Team Description 03/26/2024 External Device Data ST[facility] ABSTRACTION Provider, Abstract from Last 3 Months Immunizations Immunization Administration Dates Next Due INFLUENZA VACCINE HIGH DOSE QUADRIVALENT 65 YR U P PF IM 03/12/2022 INFLUENZA VACCINE HIGH DOSE TRIVALENT SPLIT VIRUS, (65 YR UP), 0.5ML (PF), IM 03/25/2024 Social History Tobacco Use Types Packs/Day Years Used Date Smoking Tobacco: Never Assessed Comments Unknown Sex and Gender Information Value Date Recorded Sex Assigned at Not on file Legal Sex Female 3:27 PM CDT Gender Identity Not on file Sexual Orientation Not on file Plan of Treatment Health Maintenance Due Date Last Done Comments DTAP/TDAP/TD VACCINES (1 - Tdap) 07/20/1971 BREAST CANCER SCREENING 1992 COLORECTAL SCREENING 1997 Colorectal Cancer Screening 1997 FIT-DNA Q 3 years 1997 FIT/FOBT Q 1 year 1997 Flex Sig/CT Colonography Q 5 years 1997 PNEUMOCOCCAL VACCINE 65+ YEA RS (1 of 1 - PCV) 2002 ZOSTER VACCINE (1 of 2) 2002 OSTEOPOROSIS SCREENING 2017 RSV VACCINE (60+ or ) (1 - 1-dose 75+ series) 07/20/2027 INFLUENZA VACCINE Completed 03/25/2024, 03/12/2022 Insurance RX [employer] Medicare Part D
--- OUTSIDE RECORDS SUMMARY | 2024-06-25 16:13 | XMS_ITS | Patient Health Summary ---
Author Organization [facility] Address [address] [place] [address] Care Team Providers Care Nutrition Counselor Name Role Phone Sloan Bowers MD Unavailable [phone] Note from [facility],non-owned Affiliates and Associated Physician Practices is amultiple site organization consisting of ambulatory clinics and hospital sitesin [place], [place], [place] and [place]. This disclosure is being madepursuant to the Care Everywhere program and may not contain all information available regarding this patient. Last updated 18.[facility] Social History Tobacco Use Types Packs/Day Years Used Date Smoking Tobacco: Never Assessed Sex and Gender Information Value Date Recorded Sex Assigned at Not on file Gender Identity Not on file Sexual Orientation Not on file Procedures * GROSS + MICRO EXAM(Performed 10/25/2001) Results * GROSS + MICRO EXAM (10/25/2001 3:57 PM CDT) Result CASE NUMBER [id number] Comment: ORDERING PHYSICIAN LUKASZ MANNING SPECIMEN TYPE Uterus w/wo tubes Date 10/25/2001 Physician Roney Manning Gross Description The specimen is labeled uterus, tubes, ovaries with left tube and ovary marked with a stitch . Received are four fragments of tissue, the largest consisting of a multilobular structure consistent with a distorted uterus. The cervix is submitted separately. The uterus and cervix combined weigh 410 grams. The uterine surface is characterized by a serosa that is generally smooth and glistening, but distorted by the presence of multiple smooth, bulging nodules. The overall dimensions of the uterus are 8 x 10 x 9 cm. in greatest dimensions. On sectioning the uterus, the wall is markedly distorted by multiple nodules that are whitish- bryan in color and have the appearance of watered silk on cut section. The myometrium was a pale grayish-pink in color. The endometrial cavity measured approximately 3 cm. in width and was lined by a thin, less than a mm. pale bryan mucosa. The polypoid structure is focally noted bulging within the endometrial cavity. This nodule is also whitish-bryan in color, similar to those previously described. This bulging nodule measures 15 mm. in greatest dimensions. Intramural and subserosal nodules vary from 10 up to 45 mm. in greatest dimensions. The cervix measures 4.5 cm. in length x 3.5 cm. in diameter. The ectocervix measures 4.8 cm. in diameter and is characterized by a smooth, glistening, pale-bass serosa. The ectocervix slightly ovoid measuring 4 mm. in greatest dimensions. On sectioning, the endocervical canal was patent and characterized by moderate quantities of mucus. Scattered cysts are noted, the largest measuring 6 mm. in greatest dimensions. One of the intramural nodules is extensively calcified. The right fallopian tube is tortuous and measures approximately 4 cm. in length x 0.4 cm. in diameter. The serosa is reddish-bass in color, smooth and glistening. The fimbrea are thin and delicate. Focally there is an ovoid cystic structure measuring 9 mm. in length x 4 mm. in diameter. It is filled with clear straw-colored fluid. The attached ovary has a cerebriform appearance, measuring 2.7 x 1.8 x 1.6 cm. in greatest dimensions. On cut section, the ovary shows no unusual features. The left fallopian tube tagged with a suture also reveals a fallopian tube which is very tortuous and which measures 5.2 cm. in length x 0.4 cm. in diameter. The serosa is again pale reddish-bass in color, smooth and glistening with unremarkable fimbrea. The ovary also has a cerebriform appearance, measuring 2.2 x 2 x 1.2 cm. in greatest dimensions. On cut section, no unusual features are seen. Sections are submitted as follows cervix, A endometrium, B endometrium with polypoid lesion, C multiple uterine nodules, D, E and F right fallopian tube and ovary, G left fallopian tube and ovary, H. RT/bk Microscopic Exam Sections of the cervix reveals squamocolumnar-lined tissue fragments with areas of squamous metaplasia. No dysplasia is seen. The stroma shows cystically-dilated endocervical ducts. Acute and chronic inflammation is seen. Sections of the endometrium reveals proliferative pattern. Sections of the myometrium reveal intramural and submucosal leiomyomas made up of elongated interlacing bundles of smooth muscle cells. No evidence of nuclear anaplasia, increased mitosis, necrosis, or malignancy is seen. Subserosal leiomyomas are also identified. Sections of both ovaries and fallopian tubes are unremarkable. 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 Diagnosis I. Uterus, cervix A. Acute and chronic cervicitis with squamous metaplasia. II. Uterus, endometrium A. Proliferative phase endometrium. III. Uterus, myometrium A. Leiomyomata, multiple, submucosal, intramural and serosal. IV. Ovaries, bilateral A. No pathologic diagnosis. V. Fallopian tubes, bilateral A. No pathologic diagnosis. B. Hydatid cyst of Morgagni, right side. Signal Engineer bk Pathologist Jed Eduardo M.D. [place]. 10/26/2001 1203 <6> CPT code 19464 MISCELLANEOUS SAMPLES / Unknown 10/25/2001 3:57 PM CDT 10/25/2001 3:57 PM CDT Historical Provider LAB - PATHOLOGY/C YTOLOGY ORDERABLES Care Teams Nutrition Counselor Relationship Specialty Start Date End Date Sloan Bowers MD [address] [place] [id number] Internal Medicine 05/18/10
--- OUTSIDE RECORDS SUMMARY | 2024-06-25 16:13 | XMS_ITS | Continuity of Care Document ---
Author Organization [facility] Address [address] [place] [address] Phone Care Team Providers Care Training And Development Professional Name Role Phone Adames OD, Dwight Unavailable Unavailable Procedures Procedure Date Contact Lens Check Eye Exam & Treatment Refraction Eye Exam & Treatment Refraction Eye Exam & Treatment Advance Directives Directive Yes / No Effective Date File Name No Information Encounters Encounter Description Practice Location Reason(s) For Visit Diagnoses Date Provider Providers Copied on Encounter [facility], [address] [place] [address] [address], [place], [place], [id number], tel:[phone] [facility] No Information Dec-1 9-201 0 Adames OD Dwight. [address], [place], [place], [facility], . tel:[phone] [facility], [address] [place] [address] [address], [place], [place], [id number], tel:[phone] [facility] No Information Dec-1 4-201 0 Adames OD Dwight. [address], [place], [place], [facility], . tel:[phone] [facility], [address] [place] [address] [address], [place], [place], [address], tel:[phone] [facility] No Information Aug-0 8-200 9 Adames OD Dwight. [address], [address], [place], [address], [place]. tel:[phone] [facility], [address], [place], [place], [address], [place] tel:[phone] [facility] No Information Mar-2 2-200 8 Adames OD Dwight. [address] , [address], [place], [address], [place]. tel:[phone] Family History Family Member Type Diagnosis Age At Onset No Information Payers Payer name Insurance type Covered libertarian ID Authoriza tion(s) No Information Social History [...]
--- OUTSIDE RECORDS SUMMARY | 2024-06-25 16:13 | XMS_ITS | Referral Summary ---
Author Organization [facility] Address [address] [place] [address] Care Team Providers Care Chief Librarian Extension Department Name Role Phone Tone Cardoso MD Primary Care Provider Kenneth Magaña MD Unavailable [phone] Encounters Date Type Department Care Team Description 04/26/2024 7:52 PM MEAT STUFFER - 04/26/2024 11:59 PM MEAT STUFFER Hospital Encounter [address] [address] Unspecified abnormal findings in urine Discharge Disposition: Discharge to home or self care 04/26/2024 1:45 PM MEAT STUFFER Lab [facility] Outpatient Lab at [address] [address] Unspecified abnormal findings in urine (Primary Dx) from Last 3 Months Allergies No known active allergies Medications metoprolol XL (TOPROL-XL) 25 mg 24 hr tablet Take 25 mg by mouth daily. Active aspirin 81 mg tablet Take 81 mg by mouth daily. Active calcium carbonate-vitami n D3 1500 mg (600 mg elemental) -200 units per tablet Take 1 tablet by mouth daily. Active cyanocobalamin (Vitamin B-12) 1,000 mcg/mL injection every 30 (thirty) days. Active losartan-hydroch lorothiazide (HYZAAR) 100-25 mg per tablet daily 11/19/2018 Activ e Active Problems Problem Noted Date Diagnosed Date Essential hypertension 03/18/2019 Assessment & Plan (03/18/2019 9:40 AM MEAT STUFFER): Controlled. Continue Hyzaar. Palpitations 02/07/2019 Assessment & Plan (03/18/2019 9:40 AM MEAT STUFFER): Continue metoprolol. 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 Less likely PAF. Symptoms frequent. Will recommend 2 week Holter. In check echocardiogram. She will get thyroid panel checked with upcoming blood work. Morbid obesity 02/07/2019 Assessment & Plan (03/18/2019 9:40 AM MEAT STUFFER): Encouraged dieting and weight loss Assessment & Plan (02/07/2019 1:23 PM CDT): Encouraged dieting and weight loss Sleeping difficulties 02/07/2019 Assessment & Plan (03/18/2019 9:40 AM MEAT STUFFER): Awaiting sleep study Assessment & Plan (02/07/2019 1:24 PM CDT): Will do home sleep apnea eval Social History Tobacco Use Types Packs/Day Years Used Date Smoking Tobacco: Never Smokeless Tobacco: Never Tobacco Cessation:Counseling Given: No Alcohol Use Standard Drinks/Week Comments Yes 0 (1 standard drink = 0.6 oz pur e alcohol) Comments Unknown Sex and Gender Information Value Date Recorded Sex Assigned at Not on file Legal Sex Female 8:55 AM MEAT STUFFER Gender Identity Not on file Sexual Orientation Not on file Last Filed Vital Signs Vital Sign Reading Time Taken Comments Blood Pressure 100/70 03/18/2019 9:21 AM MEAT STUFFER Pulse 72 03/18/2019 9:21 AM MEAT STUFFER Temperature 36.4 C (97.5 F) 07/31/2017 9:54 AM CDT Respiratory Rate 18 07/31/2017 9:54 AM CDT Oxygen Saturation 100% 07/31/2017 9:54 AM CDT Inhaled Oxygen Concentration - - Weight 108.4 kg (239 lb) 03/18/2019 9:21 AM MEAT STUFFER Height 165.1 cm (5' 5 ) 03/18/2019 9:21 AM MEAT STUFFER Body Mass Index 39.77 03/18/2019 9:21 AM MEAT STUFFER Plan of Treatment Not on file Procedures Procedure Name Priority Date/Time Associated Diagnosis Comments URINALYSIS, MICROSCOPIC ONLY Routine 04/26/2024 3:00 PM MEAT STUFFER Unspecified abnormal findings in urine URINE CULTURE Routine 04/26/2024 3:00 PM MEAT STUFFER URINALYSIS AND REFLEX TO MICROSCOPIC AND CULTURE Routine 04/26/2024 3:00 PM MEAT STUFFER Unspecified abnormal findings in urine COLONOSCOPY 07/31/2017 8:49 AM CDT from Last 3 Months or Most Recently Relevant to Health Maintenance Results * (ABNORMAL) Urinalysis reflex to microscopic and culture Urine, clean voided (04/26/2024 3:00 PM MEAT STUFFER) Color, ur Yellow Yellow Clarity, ur Turbid(A) Clear [facility] Specific gravity, ur 1.020 1.003 - 1.030 [facility] pH, urine 5.5 [facility]ERNER [facility] Comment: Interpretive Data U rine pH is affected by diet, medications, systemic acid-base disturbances, and renal tubular function. pH may affect urinary stone formation. For example, urine pH below 6.0 may help reduce the tendency for calcium phosphate stones and pH greater than 6.0 may reduce the tendency for uric acid stone formation. Source: [facility] Current Interpretive Data was last revised on 2017 Protein, ur ql Negative Negative [facility]ERN[facility] Glucose, ur ql Negative Negative [facility] Ketones, ur Negative Negative [facility] Bilirubin, ur Negative Negative [facility] Blood, ur Negative Negative [facility] Urobilinogen, ur <2.0 <2.0 mg/dL [facility] Nitrite, ur Positive(A) Negative [facility] Leukocyte esterase, ur 4+(A) Negative [facility] UA reflex comment Reflex to microscopic UA will be performed. [facility] Urine, clean voided 04/26/2024 3:00 PM MEAT STUFFER 04/26/2024 9:26 PM MEAT STUFFER Narrative CERNER CH - 04/26/2024 10:22 PM MEAT STUFFER Fax results to [phone] GAYE MIXON Mitesh [facility] LAB MICROBIOLOGY - GENERA L ORDERABLES Final Result Performing Organization Address [facility] [place] [address] [address] [facility] [place], [place] [id number] * (ABNORMAL) Urinalysis, microscopic only (04/26/2024 3:00 PM MEAT STUFFER) WBC, ur >50(A) 0 - 5 /HPF RBC, ur 0-2 0 - 2 /HPF [facility] Epithelial cells, squamous, ur 1-5 0 - 5 /HPF [facility] Mucous, ur Present(A) [facility] Culture Reflex Comment Reflex to urine culture will be performed. [facility] Urine, clean voided 04/26/2024 3:00 PM MEAT STUFFER 04/26/2024 9:26 PM MEAT STUFFER M[facility] URINE ORDERABLES Nancie l Result Performing Organization Address [facility] [place] [address] [address] [place] [address] * (ABNORMAL) Urine culture Urine, clean voided (04/26/2024 3:00 PM MEAT STUFFER) Report Final Report: Greater than or equal to 100,000 colonies/mL of Escherichia coli (.) Comment:Testing performed by : [facility], [address] [place]., [address] Organism ESCHERICHIA COLI [facility] Urine, clean voided 04/26/2024 3:00 PM MEAT STUFFER 04/27/2024 12:31 AM MEAT STUFFER Narrative [facility] - 04/29/2024 6:17 AM MEAT STUFFER Urine culture reflexed based upon urinalysis results. Testing performed by [facility] Laboratory ([phone]) Organism Antibiotic Method Susceptibility Escherichia coli Ampicillin INTERPRETATION Susceptible Escherichia coli Cefazolin INTERPRETATION Susceptible Escherichia coli Nitrofurantoin INTERPRETATION Susceptible Escherichia coli Gentamicin INTERPRETATION Susceptible Escherichia coli Trimethoprim with Sulfamethoxazole IN TERPRETATION Susceptible Escherichia coli Meropenem INTERPRETATION Susceptible Escherichia coli Cefepime INTERPRETATION Susceptible Escherichia coli Ciprofloxacin INTERPRETATION Intermediate Escherichia coli Ceftazidime INTERPRETATION Susceptible Escherichia coli Ceftriaxone INTERPRETATION Susceptible Escherichia coli Piperacillin/Tazobactam INTERPRETATIO N Susceptible Escherichia coli Cephalexin INTERPRETATION Susceptible Escherichia coli Cefuroxime-axetil INTERPRETATION Susceptible Escherichia coli Cefdinir INTERPRETATION Susceptible [facility] MICROBIOLOGY - GENERA L ORDERABLES Final Result HENOK [address] [facility] Department [place] [address] * COLONOSCOPY (07/31/2017 8:49 AM CDT) Anatomical Region Laterality Modality Other Narrative Procedure Note Vahe Wasserman MD - 07/31/2017 8:49 AM CDT [facility] Patient Name: Leonarda Jean Procedure Date: 07/31/2017 8:49 AM Date of : 1950 Admit Type: Outpatient Age: 67 Gender: Female Attending MD: Vahe Wasserman M.D. Room: [facility] ENDOSCOPY CAPSULE Note Status: Finalized Procedure: Colonoscopy Indications: Screening for colorectal malignant neoplasm Referring MD: Tone Cardoso MD Providers: Vahe Wasserman M.D. Impression: - Internal hemorrhoids that prolapse with straining, but require manual replacement into the anal canal (Grade III) found on perianal exam. - Diverticulosis in the sigmoid colon. - The examination was otherwise normal. - No specimens collected. Recommendation: - Discharge patient to home. - Resume previous diet indefinitely. - Continue present medications. - Repeat colonoscopy in 10 years for screeningpurposes. - Return to primary care physician as previously scheduled. Medicines: Sedation Administered by an AnesthesiaProfessional Complications: No immediate complications. Estimated Blood Loss: Estimated blood loss: none. Procedure: The benefits, risks and alternatives of theprocedure and sedation were discussed and informed consent was obtained. All questions were answered. Please referto the signed informed consent document in the medical record. The scope was passed under direct vision.The Colonoscope [id number] was introducedthrough the anus and advanced to the the cecum, identifiedby appendiceal orifice and ileocecal valve. The colonoscopy was performed without difficulty. The patient tolerated the procedure well. The quality of the bowel preparation was excellent. Findings: The perianal exam findings include internal hemorrhoids that prolapse with straining, but require manual replacement into the anal canal (Grade III). Multiple small-mouthed diverticula were found in the sigmoid colon. The exam was otherwise without abnormality. Electronically signed by Vahe Wasserman M.D. Vahe Wasserman M.D. 07/31/2017 9:23:14 AM Number of Addenda: 0 Note Initiated On: 07/31/2017 8:49 AM Procedure Code(s): --- Professional --- G0121, Colorectal cancer screening; colonoscopy on individual not meeting criteria for high risk Diagnosis Code(s): --- Professional --- K57.30, Diverticulosis of large intestine without perforation orabscess without bleeding K64.2, Third degree hemorrhoids Z12.11, Encounter for screening for malignant neoplasm of colon CPT copyright 2014 [employer]. All rights reserved. The codes documented in this report are preliminary and upon small animal caretaker reviewmay be revised to meet current compliance requirements. Recognized by the [employer] for promoting quality in endoscopy Vahe Wasserman MD ENDOSCOPY PROCEDURES Final Re sult from Last 3 Months or Most Recently Relevant to Health Maintenance Insurance MEDICARE [facility] MED[facility] Address: [address] [address] [place] [address] [facility] MEDICARE [facility] MEDIC[facility] Address: [address] [place] [address] Advance Directives For more information, please contact: [phone] * Full Code (Latest Code Status on File) Date Activated Date Inactivated Comments 07/31/2017 8:21 AM 07/31/2017 12:30 PM Care Teams Chief Librarian Extension Department Relationship Specialty Start Date End Date Tone Cardoso MD [address] [place] [address] PCP - General Family Medicine 09/27/18 Kenneth Magaña MD [address] [place] [address] Data Entry Cardiovascular Disease 02/05/19
--- OUTSIDE RECORDS SUMMARY | 2024-06-25 16:13 | XMS_ITS | Clinical Summary ---
Author Organization [facility] Address [address] [place] [address] Care Team Providers Care Road Maker Name Role Phone Tone Cardoso MD Primary Care Provider Kenneth Magaña MD Unavailable [phone] Allergies No known active allergies Medications metoprolol [...] 03/18/2019 Assessment & Plan (03/18/2019 9:40 AM ANALYTICS DIRECTOR): Controlled. Continue Hyzaar. Palpitations 02/07/2019 Assessment & Plan (03/18/2019 9:40 AM ANALYTICS DIRECTOR): Continue metoprolol. 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 Less likely PAF. Symptoms frequent. Will recommend 2 week Holter. In check echocardiogram. She will get thyroid panel checked with upcoming blood work. Morbid obesity 02/07/2019 Assessment & Plan (03/18/2019 9:40 AM ANALYTICS DIRECTOR): Encouraged dieting and weight loss Assessment & Plan (02/07/2019 1:23 PM CDT): Encouraged dieting and weight loss Sleeping difficulties 02/07/2019 Assessment & Plan (03/18/2019 9:40 AM ANALYTICS DIRECTOR): Awaiting sleep study Assessment & Plan (02/07/2019 1:24 PM CDT): Will do home sleep apnea eval Encounters Date Type Department Care Team Description 04/26/2024 7:52 PM ANALYTICS DIRECTOR - 04/26/2024 11:59 PM ANALYTICS DIRECTOR Hospital Encounter [place] [id number] Unspecified abnormal findings in urine Discharge Disposition: Discharge to home or self care 04/26/2024 1:45 PM ANALYTICS DIRECTOR Lab [facility] Group Outpatient Lab at [address] [address] Unspecified abnormal findings in urine (Primary Dx) from Last 3 Months Surgical History Surgery Date Site/Laterality Comments HYSTERECTOMY WRIST SURGERY Right SHOULDER SURGERY Left COLONOSCOPY 05/15/2012 - 05/14/2013 Medical History Medical History Date Comments Hypertension GERD (gastroesophageal reflux disease) Social History Tobacco Use Types Packs/Day Years Used Date Smoking Tobacco: Never Smokeless Tobacco: Never Tobacco Cessation:Counseling Given: No Alcohol Use Standard Drinks/Week Comments Yes 0 (1 standard drink = 0.6 oz pur e alcohol) Comments Unknown Sex and Gender Information Value Date Recorded Sex Assigned at Not on file Legal Sex Female 8:55 AM ANALYTICS DIRECTOR Gender Identity Not on file Sexual Orientation Not on file Obstetrics History Last Filed Vital Signs Vital Sign Reading Time Taken Comments Blood Pressure 100/70 03/18/2019 9:21 AM ANALYTICS DIRECTOR Pulse 72 03/18/2019 9:21 AM ANALYTICS DIRECTOR Temperature 36.4 C (97.5 F) 07/31/2017 9:54 AM CDT Respiratory Rate 18 07/31/2017 9:54 AM CDT Oxygen Saturation 100% 07/31/2017 9:54 AM CDT Inhaled Oxygen Concentration - - Weight 108.4 kg (239 lb) 03/18/2019 9:21 AM ANALYTICS DIRECTOR Height 165.1 cm (5' 5 ) 03/18/2019 9:21 AM ANALYTICS DIRECTOR Body Mass Index 39.77 03/18/2019 9:21 AM ANALYTICS DIRECTOR Plan of Treatment Health Maintenance Due Date Last Done Comments Breast Cancer Screening-Mammogram 1950 Depression Screening 1950 Fall Risk Assessment 1950 Hepatitis C Screening 1950 Osteoporosis Screening-Bone Density Scan 1950 DTaP/Tdap/Td Vaccine (1 - Tdap) 07/20/1963 Hepatitis B Screening 1970 Pneumococcal vaccine 65+ (1 of 1 - PCV) 2017 Well Visit 65+ 2017 Covid-19 Vaccine (5 - 2023-2 5 season) 2024 11/10/2021, 04/06/2021, 07/28/2020, Additional history exists Colon Cancer Screening-Colonoscopy 08/01/2027 07/31/2017 Colon Cancer Screening-CT Colonography Discontinued 07/31/2017 Colon Cancer Screening-DNA Stool Discontinued 08/01/19 Colon Cancer Screening-FIT Discontinued 07/31/2017 Colon Cancer Screening-Sigmoidoscopy Discontinued 07/31/2017 Zoster Vaccine Completed 08/18/2021, 02/22/2021 Influenza Vaccine Completed 03/25/2024 Procedures Procedure Name Priority Date/Time Associated Diagnosis Comments URINALYSIS, MICROSCOPIC ONLY Routine 04/26/2024 3:00 PM ANALYTICS DIRECTOR Unspecified abnormal findings in urine URINE CULTURE Routine 04/26/2024 3:00 PM ANALYTICS DIRECTOR URINALYSIS AND REFLEX TO MICROSCOPIC AND CULTURE Routine 04/26/2024 3:00 PM ANALYTICS DIRECTOR Unspecified abnormal findings in urine COLONOSCOPY 07/31/2017 8:49 AM CDT from Last 3 Months or Most Recently Relevant to Health Maintenance Results * (ABNORMAL) Urinalysis reflex to microscopic and culture Urine, clean voided (04/26/2024 3:00 PM ANALYTICS DIRECTOR) Color, ur Yellow Yellow Clarity, ur Turbid(A) Clear CERNER Specific gravity, ur 1.020 1.003 - 1.030 [...] tendency for uric acid stone formation. Source: [facility] Current Interpretive Data was last revised on [...] Reflex to microscopic [facility] Urine, clean voided 04/26/2024 3:00 PM ANALYTICS DIRECTOR 04/26/2024 9:26 PM ANALYTICS DIRECTOR Narrative [facility]ERNER CH - 04/26/2024 10:22 PM ANALYTICS DIRECTOR Fax results to [phone] GAYE MIXON Mitesh MIX[facility] LAB MICROBIOLOGY - GENERA L ORDERABLES Final Result HENOK [address] [address] Department [place] [address] * (ABNORMAL) Urinalysis, microscopic only (04/26/2024 3:00 PM ANALYTICS DIRECTOR) WBC, ur >50(A) 0 - 5 /HPF RBC, ur 0-2 0 - 2 /HPF CERNER Epithelial cells, squamous, ur 1-5 0 - 5 /HPF CERNER Mucous, ur Present(A) [facility] Culture Reflex Comment Reflex to urine culture will be performed. CERNER Urine, clean voided 04/26/2024 3:00 PM ANALYTICS DIRECTOR 04/26/2024 9:26 PM ANALYTICS DIRECTOR Mitesh MIXON LAB URINE ORDERABLES Nancie l Result Performing Organization Address [facility] de Phone Number HENOK [address] [address] Department [place] [address] * (ABNORMAL) Urine culture Urine, clean voided (04/26/2024 3:00 PM ANALYTICS DIRECTOR) Report Final Report: Greater than or equal to 100,000 colonies/mL of Escherichia coli (.) Comment:Testing performed by : [facility], [address] [place]., [address] Organism ESCHERICHIA COLI [facility] Urine, clean voided 04/26/2024 3:00 PM ANALYTICS DIRECTOR 04/27/2024 12:31 AM ANALYTICS DIRECTOR Narrative HENOK - 04/29/2024 6:17 AM ANALYTICS DIRECTOR Urine culture reflexed based upon urinalysis results. Testing performed by [facility] Microbiology Laboratory ([phone]) Organism Antibiotic Method Susceptibility Escherichia coli Ampicillin [...] L ORDERABLES Final Result Performing Organization Address [facility] [place] Number [place] [address] [address] [place] [address] * COLONOSCOPY (07/31/2017 8:49 AM CDT) Anatomical Region Laterality Modality Other Narrative Procedure Note Vahe Wasserman MD - 07/31/2017 8:49 AM CDT [facility] Patient Name: Leonarda Jean Procedure Date: 07/31/2017 8:49 AM Date of : 1950 Admit Type: Outpatient Age: 67 Gender: Female Attending MD: Vahe Wasserman M.D. Room: [facility] ENDOSCOPY CAPSULE Note Status: Finalized Procedure: Colonoscopy [...] scope was passed under direct vision.The Colonoscope [id number] was introducedthrough the anus and advanced to [...] malignant neoplasm of colon CPT copyright 2014 [employer]. All rights reserved. The codes documented in this report are preliminary and upon hims coder reviewmay be revised to meet current compliance requirements. Recognized by the [employer] for promoting quality in endoscopy Vahe Wasserman MD ENDOSCOPY PROCEDURES Final Re sult from Last 3 Months or Most Recently Relevant to Health Maintenance Insurance MEDICARE [facility] MEDIC[facility] Address: [address] [address] [place] [address] [employer] MEDICARE Advance Directives For more information, please contact: [phone] * Full Code (Latest Code Status on File) Date Activated Date Inactivated Comments 07/31/2017 8:21 AM 07/31/2017 12:[address] Maker Relationship Specialty Start Date End Date Tone Cardoso MD [address] [place] [address] PCP - General Family Medicine 09/27/18 Kenneth Magaña MD [address] [place] [address] Guest Specialist Cardiovascular Disease 02/05/19
--- OUTSIDE RECORDS SUMMARY | 2024-06-25 16:13 | XMS_ITS | Clinical Summary ---
Author Organization [facility] Address [address] [place] [address] Care Team Providers Care Typing Office Worker Name Role Phone Sloan Bowers MD Unavailable [phone] Source Comments [facility],non-owned Affiliates and Associated Physician Practices is amultiple site organization consisting of ambulatory clinics and hospital sitesin [place], [place], [place] and [place]. This disclosure is being madepursuant to the Care Everywhere program and may not contain all information available regarding this patient. Last updated 18.[facility] Tittat Social History Tobacco Use Types Packs/Day Years Used Date Smoking Tobacco: Never Assessed Sex and Gender Information Value Date Recorded Sex Assigned at Not on file Gender Identity Not on file Sexual Orientation Not on file Plan of Treatment Health Maintenance Due Date Last Done Comments BONE DENSITY TESTING 1950 COLOGUARD (AGES 45-75) - COL ON CA SCREENING 1950 COLON MONITORING 1950 COLONOSCOPY - COLON CA SCREENING 1950 CT COLONOGRAPHY - COLON CA SCREENING 1950 Colorectal Cancer Screening 1950 FIT - COLON CA SCREENING 1950 FLEX SIG - COLON CA SCREENING 1950 LIPID TESTING 1950 MAMMOGRAM 1950 MEDICARE AWV 12 MONTHS 1950 HEPATITIS C SCREENING 07/15/1970 DTAP/TDAP/TD VACCINES (1 - Tdap) 07/20/1971 PNEUMOCOCCAL VACCINE 50+ (1 of 1 - PCV) 2002 ZOSTER VACCINE (1 of 2) 2002 COVID-19 VACCINE (1 - 2023-2 5 season) 2024 INFLUENZA VACCINE (#1) 2024 DEPRESSION SCREENING 05/15/2024 Respiratory Syncytial Virus (RSV) Vaccine Pt: or over 60 yrs (1 - 1-dose 75+ series) 07/20/2027 HEPATITIS B VACCINE Aged Out No longe r eligible based on patient's age to complete this topic HIB VACCINE Aged Out No longer eligi ble based on patient's age to complete this topic HPV VACCINE Aged Out No longer eligi ble based on patient's age to complete this topic MENINGOCOCCAL (Group B) VACCINE Aged Out No longer eligible based on patient's age to complete this topic MENINGOCOCCAL VACCINE Aged Out No tomi omid eligible based on patient's age to complete this topic Care Teams Typing Office Worker Relationship Specialty Start Date End Date Sloan Bowers MD [address] [place] [address] Internal Medicine 05/18/10
--- OUTSIDE RECORDS SUMMARY | 2024-06-25 16:13 | XMS_ITS | Referral Summary ---
Author Organization [facility] Address [address] [place] [address] Care Team Providers Care Client Service Consultant Name Role Phone Sloan Bowers MD Unavailable [phone] Source Comments [facility],non-owned Affiliates and Associated Physician Practices is amultiple site organization consisting of ambulatory clinics and hospital sitesin [place], [place], [place] and [place]. This disclosure is being madepursuant to the Care Everywhere program and may not contain all information available regarding this patient. Last updated 18.[facility] Twined Social History Tobacco Use Types Packs/Day Years Used Date Smoking Tobacco: Never Assessed Sex and Gender Information Value Date Recorded Sex Assigned at Not on file Gender Identity Not on file Sexual Orientation Not on file Plan of Treatment Not on file Care Teams Client Service Consultant Relationship Specialty Start Date End Date Sloan Bowers MD [address] [place] [address] Internal Medicine 05/18/10
[2024-06-25 20:03] LABS: Cholesterol 242 mg/dL (0-200); HDL Direct 59 mg/dL; Triglycerides 81 mg/dL (<150)
[2024-06-25 20:15] LABS: LDL Cholesterol Direct 126 mg/dL
== END 2024-06-25 15:37 | disposition home or self-care (01) ==
LOC: ANHGOSHLAB 15:38
PROVIDERS: PCP Family Medicine; Visit Provider Internal Medicine Cardiovascular Disease
DX: E78.5 Hyperlipidemia, unspecified (principal)
CPT/HCPCS: 36415; 80061

== ENCOUNTER 2024-07-29 08:45 | Outpatient (CLI) | payer MEDICARE, SELFPAY ==
--- NOTE | ~2024-07-29 | MM_ITS ---
EXAMINATION: MM screening zoya BI w kevon HISTORY: Screening TECHNIQUE: Craniocaudal and mediolateral oblique 3-D tomosynthesis images were obtained and synthetic 2-D images were generated. CAD analysis was submitted and interpreted. COMPARISON: Comparison to multiple prior studies sequentially, with oldest reviewed study dated 04/15. BREAST PARENCHYMAL COMPOSITION: Not dense: There are scattered areas of fibroglandular density. FINDINGS: There is no evidence of suspicious mass, calcification, or architectural distortion to sugg est malignancy in either breast. There has been no suspicious interval change. IMPRESSION: 1. No mammographic evidence of malignancy. 2. Recommend routine screening mammography in one year. BI-RADS Category 1: Negative Reviewed, dictated and finalized at location B.
--- NOTE | ~2024-07-29 | DEXA_ITS ---
Bone Density Report Name: ELIZABETH SHORE V Age: 74 Sex: Female Ethnicity: Black Date of : 1950 Indication: postmenopausal; screening for osteoporosis; height loss; prior fracture; hysterectomy; Referring Provider: ROBIN VAZQUEZ Study: Bone densitometry was performed. Exam Date: July 29, 2024 Accession number: [id number] Bone Density: Region BMD T-score Z-score Classification AP Spine(L1-L4) 1.072 0.2 1.7 Normal World Health Organization criteria for BMD impression classify patients as: Normal (T-score at or above -1.0), Osteopenia (T-score between -1.0 and -2.5), or Osteoporosis (T-score at or below -2.5). Previous Exams: Region Exam Age BMD T-score BMD Change BMD Change Date g/cm2 vs Baseline vs Previous AP Spine (L1-L4) 07/29/2024 74 1.072 0.2 -0.088 (-7.6%) -0.090 (-7.8%) 01/27/2022 71 1.162 1.0 0.002 (0.2%)# -0.059 (-4.8%) 11/02/2018 68 1.220 1.6 0.061 (5.3%)# 0.065 (5.6%)* 05/12/2016 65 1.156 1.0 -0.004 (-0.3%) -0.004 (-0.3%) 12/04/2013 63 1.159 1.0 *Denotes significance at 95% confidence level, LSC for AP Spine = 0.022 g/cm2 # Denotes dissimilar scan types or analysis methods Clinical Information Provided by Patient: Has had a low trauma fracture Has used the following medications: Vitamin D Has the following medical conditions: Hysterectomy Patient maximum height was 65 No regular weight bearing exercise Onset of menses at age 18 Number of children 0 Impression: The patient has normal bone mass. The patient has risk factors, including: previous fracture. The BMD for the AP Spine (L1-L4) decreased, changing by -7.8% since the last DXA exam. Discussion: BONE DENSITY IS ABOVE THE MINIMUM DESIRABLE LEVEL AT ALL SKELETAL SITES TESTED. This patient?s bone mineral density is above the minimum desirable level (T-score -1.0 or better) at all sites measured. The patient should follow a healthful lifestyle (good nutrition with adequate calcium and vitamin D, and appropriate weight-bearing exercise). Follow-Up: Consider repeating this study in 3 to 4 years to reassess this patient's status, or sooner if there is some new clinical indication. Reported by: NOLVIA on 07/29/2024 9:25:00 AM. Reviewed, dictated and finalized at location A.
--- OUTSIDE RECORDS SUMMARY | 2024-07-29 09:15 | XMS_ITS | Clinical Summary ---
Author Organization [facility] Address [address] [place] [address] Care Team Providers Care Film Developer Name Role Phone Sloan Bowers MD Unavailable [phone] Source Comments [facility],non-owned Affiliates and Associated Physician Practices is amultiple site organization consisting of ambulatory clinics and hospital sitesin [place], [place]. This disclosure is being madepursuant to the Care Everywhere program and may not contain all information available regarding this patient. Last updated 18.[facility] [employer] Social History Tobacco Use Types Packs/Day Years [...] to complete this topic MENINGOCOCCAL (Group B) VACC INE SHARED DECISION-MAKING Aged Out No longer eligibl e based on patient's age to complete this topic MENINGOCOCCAL GROUPS A/C/Y/W VACCINE Aged Out No longer eligible b ased on patient's age to complete this topic Care Teams Film Developer Relationship Specialty Start Date End Date Sloan Bowers MD [address] [place] [address] Internal Medicine 05/18/10
--- OUTSIDE RECORDS SUMMARY | 2024-07-29 09:15 | XMS_ITS | Continuity of Care Document ---
Author Organization [facility] Address [address] [facility] [place] [address] Phone Care Team Providers Care Sheet Metal Smith Name Role Phone Adames OD, Dwight Unavailable Unavailable Procedures Procedure Date Contact Lens Check Eye Exam & Treatment Refraction Eye Exam & Treatment Refraction Eye Exam & Treatment Advance Directives Directive Yes / No Effective Date File Name No Information Encounters Encounter Description Practice Location Reason(s) For Visit Diagnoses Date Provider Providers Copied on Encounter [facility], [address] [place] [address] [address], [place], [place], [id number], tel:[phone] [facility] No Information Dec-1 9-201 0 Adames OD Dwight. [address], [place], [place], [facility] [place] [facility] [place], . tel:[phone] [facility], [address] [place] [address] [address], [place], [place], [id number], tel:[phone] [facility] No Information Dec-1 4-201 0 Adames OD Dwight. [address], [place], [place], [facility] [place] [facility] [place], . tel:[phone] [facility], [address] [place] [address] [address], [place], [place], [id number], tel:[phone] [facility] No Information Aug-0 8-200 9 Adames OD Dwight. [address], [address], [place], [address], [place]. tel:[phone] [facility], [address], [place], [place], [id number], [place] tel:[phone] [facility] No Information Mar-2 2-200 8 Adames OD Dwight. [address] , [address], [place], [address], [place]. tel:[phone] Family History Family Member Type Diagnosis Age [...]
--- OUTSIDE RECORDS SUMMARY | 2024-07-29 09:15 | XMS_ITS | Referral Summary ---
Author Organization [facility] Address [address] [place] [address] Care Team Providers Care Deputy Brand Inspector Name Role Phone Tone Cardoso MD Primary Care Provider Kenneth Magaña MD Unavailable [phone] Allergies No known active allergies Medications metoprolol [...] 03/18/2019 Assessment & Plan (03/18/2019 9:40 AM WATER POLLUTION CONTROL INSPECTOR): Controlled. Continue Hyzaar. Palpitations 02/07/2019 Assessment & Plan (03/18/2019 9:40 AM WATER POLLUTION CONTROL INSPECTOR): Continue metoprolol. 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 Less likely PAF. Symptoms frequent. Will recommend 2 week Holter. In check echocardiogram. She will get thyroid panel checked with upcoming blood work. Morbid obesity 02/07/2019 Assessment & Plan (03/18/2019 9:40 AM WATER POLLUTION CONTROL INSPECTOR): Encouraged dieting and weight loss Assessment & Plan (02/07/2019 1:23 PM CDT): Encouraged dieting and weight loss Sleeping difficulties 02/07/2019 Assessment & Plan (03/18/2019 9:40 AM WATER POLLUTION CONTROL INSPECTOR): Awaiting sleep study Assessment & Plan (02/07/2019 [...] on file Legal Sex Female 8:55 AM WATER POLLUTION CONTROL INSPECTOR Gender Identity Not on file Sexual Orientation Not on file Last Filed Vital Signs Vital Sign Reading Time Taken Comments Blood Pressure 100/70 03/18/2019 9:21 AM WATER POLLUTION CONTROL INSPECTOR Pulse 72 03/18/2019 9:21 AM WATER POLLUTION CONTROL INSPECTOR Temperature 36.4 C (97.5 F) 07/31/2017 9:54 AM CDT Respiratory Rate 18 07/31/2017 9:54 AM CDT Oxygen Saturation 100% 07/31/2017 9:54 AM CDT Inhaled Oxygen Concentration - - Weight 108.4 kg (239 lb) 03/18/2019 9:21 AM WATER POLLUTION CONTROL INSPECTOR Height 165.1 cm (5' 5 ) 03/18/2019 9:21 AM WATER POLLUTION CONTROL INSPECTOR Body Mass Index 39.77 03/18/2019 9:21 AM WATER POLLUTION CONTROL INSPECTOR Plan of Treatment Not on file Procedures Procedure Name Priority Date/Time Associated Diagnosis Comments COLONOSCOPY 07/31/2017 8:49 AM CDT from Last 3 Months or Most Recently Relevant to Health Maintenance Results * COLONOSCOPY (07/31/2017 8:49 AM CDT) Anatomical Region Laterality Modality Other Narrative Procedure Note Vahe Wasserman MD - 07/31/2017 8:49 AM CDT [facility] Patient Name: Leonarda Jean Procedure Date: 07/31/2017 8:49 AM Date of : 1950 Admit Type: Outpatient Age: 67 Gender: Female Attending MD: Vahe Wasserman M.D. Room: [facility] ENDOSCOPY CAPSULE Note Status: Finalized Procedure: Colonoscopy [...] scope was passed under direct vision.The Colonoscope [id number] was introducedthrough the anus and advanced to [...] malignant neoplasm of colon CPT copyright 2014 [employer]. All rights reserved. The codes documented in this report are preliminary and upon district court administrator reviewmay be revised to meet current compliance requirements. Recognized by the [employer] for promoting quality in endoscopy Vahe Wasserman MD ENDOSCOPY PROCEDURES Final Re sult from Last 3 Months or Most Recently Relevant to Health Maintenance Insurance MEDICARE SOLUTIONS AET MEDICARE Advance Directives For more information, please contact: [phone] * Full Code (Latest Code Status on File) Date Activated Date Inactivated Comments 07/31/2017 8:21 AM 07/31/2017 12:30 PM Care Teams Deputy Brand Inspector Relationship Specialty Start Date End Date Tone Cardoso MD [address] [facility] [address] [place] [address] PCP - General Family Medicine 09/27/18 Kenneth Magaña MD [address] [place] [address] Buzzle Buffer Cardiovascular Disease 02/05/19
--- OUTSIDE RECORDS SUMMARY | 2024-07-29 09:15 | XMS_ITS | Clinical Summary ---
Author Organization [facility] Address [address] [facility] Attn: Epic Prelude ADT [place]E [place] [address] Care Team Providers Care Office Electrician Name Role Phone Unavailable Primary Care Provider Unavailabl e Immunizations Immunization Administration Dates Next Due INFLUENZA [...] Colonography Q 5 years 1997 PNEUMOCOCCAL VACCINE 50+ YEA RS (1 of 1 - PCV) 2002 ZOSTER VACCINE (1 of 2) 2002 OSTEOPOROSIS SCREENING 2017 RSV VACCINE (60+ or ) (1 - 1-dose 75+ series) 07/20/2027 INFLUENZA VACCINE Completed 03/25/2024, 03/12/2022 Insurance RX AET[employer] Medicare Part D
--- OUTSIDE RECORDS SUMMARY | 2024-07-29 09:15 | XMS_ITS | Clinical Summary ---
Author Organization [facility] Address [address] [place] [address] Care Team Providers Care Cellophane Casting Machine Repairer Name Role Phone Tone Cardoso MD Primary Care Provider Kenneth Magaña MD Unavailable [phone] Allergies No known active allergies Medications metoprolol [...] 03/18/2019 Assessment & Plan (03/18/2019 9:40 AM CUT OFF TENDER GLASS): Controlled. Continue Hyzaar. Palpitations 02/07/2019 Assessment & Plan (03/18/2019 9:40 AM CUT OFF TENDER GLASS): Continue metoprolol. 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 Less likely PAF. Symptoms frequent. Will recommend 2 week Holter. In check echocardiogram. She will get thyroid panel checked with upcoming blood work. Morbid obesity 02/07/2019 Assessment & Plan (03/18/2019 9:40 AM CUT OFF TENDER GLASS): Encouraged dieting and weight loss Assessment & Plan (02/07/2019 1:23 PM CDT): Encouraged dieting and weight loss Sleeping difficulties 02/07/2019 Assessment & Plan (03/18/2019 9:40 AM CUT OFF TENDER GLASS): Awaiting sleep study Assessment & Plan (02/07/2019 1:24 PM CDT): Will do home sleep apnea eval Surgical History Surgery Date Site/Laterality Comments HYSTERECTOMY [...] on file Legal Sex Female 8:55 AM CUT OFF TENDER GLASS Gender Identity Not on file Sexual Orientation Not on file Obstetrics History Last Filed Vital Signs Vital Sign Reading Time Taken Comments Blood Pressure 100/70 03/18/2019 9:21 AM CUT OFF TENDER GLASS Pulse 72 03/18/2019 9:21 AM CUT OFF TENDER GLASS Temperature 36.4 C (97.5 F) 07/31/2017 9:54 AM CDT Respiratory Rate 18 07/31/2017 9:54 AM CDT Oxygen Saturation 100% 07/31/2017 9:54 AM CDT Inhaled Oxygen Concentration - - Weight 108.4 kg (239 lb) 03/18/2019 9:21 AM CUT OFF TENDER GLASS Height 165.1 cm (5' 5 ) 03/18/2019 9:21 AM CUT OFF TENDER GLASS Body Mass Index 39.77 03/18/2019 9:21 AM CUT OFF TENDER GLASS Plan of Treatment Health Maintenance Due Date Last Done Comments Breast Cancer Screening-Mammogram 1950 Depression Screening 1950 Fall Risk Assessment 1950 Hepatitis C Screening 1950 Osteoporosis Screening-Bone Density Scan 1950 DTaP/Tdap/Td Vaccine (1 - Tdap) 07/20/1963 Hepatitis B Screening 1970 Pneumococcal vaccine 65+ (1 of 1 - PCV) 2002 Well Visit 65+ 2017 Covid-19 Vaccine (2023-2 5 season) 2024 11/10/2021, 04/06/2021, 07/28/2020, Additional [...] Female Attending MD: Vahe Wasserman M.D. Room: [facility] ENDOSCOPY CAPSULE Note Status: Finalized Procedure: Colonoscopy [...] scope was passed under direct vision.The Colonoscope [id number] was introducedthrough the anus and advanced to [...] malignant neoplasm of colon CPT copyright 2014 [employer]. All rights reserved. The codes documented in this report are preliminary and upon technical support director reviewmay be revised to meet current compliance requirements. Recognized by the [place] [employer] for promoting quality in endoscopy Vahe Wasserman MD ENDOSCOPY PROCEDURES Final Re sult from Last 3 Months or Most Recently Relevant to Health Maintenance Insurance MEDICARE SOLUTIONS [facility] MEDICARE [facility] MEDIC[facility] Address: [address] [place] [address] Advance Directives For more information, please contact: [phone] * Full Code (Latest Code Status on File) Date Activated Date Inactivated Comments 07/31/2017 8:21 AM 07/31/2017 12:30 PM Care Teams Cellophane Casting Machine Repairer Relationship Specialty Start Date End Date Tone Cardoso MD [address] [place] [address] PCP - General Family Medicine 09/27/18 Kenneth Magaña MD [address] [place] [address] Sales Contract Administrator Cardiovascular Disease 02/05/19
--- OUTSIDE RECORDS SUMMARY | 2024-07-29 09:15 | XMS_ITS | Referral Summary ---
Author Organization [facility] Address [address] [place] [address] Care Team Providers Care Buildings And Grounds Director Name Role Phone Sloan Bowers MD Unavailable [phone] Source Comments [facility],non-owned Affiliates and Associated Physician Practices is amultiple site organization consisting of ambulatory clinics and hospital sitesin [place], [place], [place] and [place]. This disclosure is being madepursuant to the Care Everywhere program and may not contain all information available regarding this patient. Last updated 18.[facility] [employer] Social History Tobacco Use Types Packs/Day Years Used Date Smoking Tobacco: Never Assessed Sex and Gender Information Value Date Recorded Sex Assigned at Not on file Gender Identity Not on file Sexual Orientation Not on file Plan of Treatment Not on file Care Teams Buildings And Grounds Director Relationship Specialty Start Date End Date Sloan Bowers MD [address] [place] [address] Internal Medicine 05/18/10
--- OUTSIDE RECORDS SUMMARY | 2024-07-29 09:15 | XMS_ITS | Patient Health Summary ---
Author Organization [facility] Address [address] [facility] [address] [place] [address] Care Team Providers Care Hands And Dial Inspector Name Role Phone Sloan Bowers MD Unavailable [phone] Note from [facility],non-owned Affiliates and Associated Physician Practices is amultiple site organization consisting of ambulatory clinics and hospital sitesin [place], [place], [place] and [place]. This disclosure is being madepursuant to the Care Everywhere program and may not contain all information available regarding this patient. 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 Orthotics Technician bk Pathologist Jed Eduardo M.D. [place]. 10/26/2001 1203 <6> CPT code 84222 MISCELLANEOUS SAMPLES / Unknown 10/25/2001 3:57 PM CDT 10/25/2001 3:57 PM CDT Historical Provider LAB - PATHOLOGY/C YTOLOGY ORDERABLES Care Teams Hands And Dial Inspector Relationship Specialty Start Date End Date Sloan Bowers MD [address] [place] [address] Internal Medicine 05/18/10
== END 2024-07-29 08:46 | disposition home or self-care (01) ==
LOC: ANHIMG 08:46
PROVIDERS: PCP Obstetrics & Gynecology; Visit Provider Obstetrics & Gynecology
DX: Z12.31 Encounter for screening mammogram for malignant neoplasm of breast (principal); Z78.0 Asymptomatic menopausal state
CPT/HCPCS: 77063; 77067; 77080

== ENCOUNTER 2024-08-22 14:18 | Outpatient (CLI) | payer MEDICARE, SELFPAY ==
--- OUTSIDE RECORDS SUMMARY | 2024-08-22 14:52 | XMS_ITS | Clinical Summary ---
Author Organization [facility] Address [address] [place] [address] Care Team Providers Care Rehab Department Manager Name Role Phone Tone Cardoso MD Primary Care Provider Kenneth Magaña MD Unavailable [phone] Allergies No known active allergies Medications metoprolol [...] 03/18/2019 Assessment & Plan (03/18/2019 9:40 AM MICROSOFT SOLUTIONS ARCHITECT): Controlled. Continue Hyzaar. Palpitations 02/07/2019 Assessment & Plan (03/18/2019 9:40 AM MICROSOFT SOLUTIONS ARCHITECT): Continue metoprolol. 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 Less likely PAF. Symptoms frequent. Will recommend 2 week Holter. In check echocardiogram. She will get thyroid panel checked with upcoming blood work. Morbid obesity 02/07/2019 Assessment & Plan (03/18/2019 9:40 AM MICROSOFT SOLUTIONS ARCHITECT): Encouraged dieting and weight loss Assessment & Plan (02/07/2019 1:23 PM CDT): Encouraged dieting and weight loss Sleeping difficulties 02/07/2019 Assessment & Plan (03/18/2019 9:40 AM MICROSOFT SOLUTIONS ARCHITECT): Awaiting sleep study Assessment & Plan (02/07/2019 [...] on file Legal Sex Female 8:55 AM MICROSOFT SOLUTIONS ARCHITECT Gender Identity Not on file Sexual Orientation Not on file Obstetrics History Last Filed Vital Signs Vital Sign Reading Time Taken Comments Blood Pressure 100/70 03/18/2019 9:21 AM MICROSOFT SOLUTIONS ARCHITECT Pulse 72 03/18/2019 9:21 AM MICROSOFT SOLUTIONS ARCHITECT Temperature 36.4 C (97.5 F) 07/31/2017 9:54 AM CDT Respiratory Rate 18 07/31/2017 9:54 AM CDT Oxygen Saturation 100% 07/31/2017 9:54 AM CDT Inhaled Oxygen Concentration - - Weight 108.4 kg (239 lb) 03/18/2019 9:21 AM MICROSOFT SOLUTIONS ARCHITECT Height 165.1 cm (5' 5 ) 03/18/2019 9:21 AM MICROSOFT SOLUTIONS ARCHITECT Body Mass Index 39.77 03/18/2019 9:21 AM MICROSOFT SOLUTIONS ARCHITECT Plan of Treatment Health Maintenance Due Date [...] MD: Vahe Wasserman M.D. Room: [facility] ENDOSCOPY CAPSULE Note Status: Finalized Procedure: [...] scope was passed under direct vision.The Colonoscope [id number] was introducedthrough the anus and advanced to [...] malignant neoplasm of colon CPT copyright 2014 [employer]. All rights reserved. The codes documented in this report are preliminary and upon top lift compressor reviewmay be revised to meet current compliance requirements. Recognized by the [employer] for promoting quality in endoscopy Vahe Wasserman MD ENDOSCOPY PROCEDURES Final Re sult from Last 3 Months or Most Recently Relevant to Health Maintenance Insurance [employer] MEDICARE [facility] MEDICARE Address: [address] [address] [place] [address] [facility] MEDIC[facility] Advance Directives For more information, please contact: [phone] * Full Code (Latest Code Status on File) Date Activated Date Inactivated Comments 07/31/2017 8:21 AM 07/31/2017 12:30 PM Care Teams Rehab Department Manager Relationship Specialty Start Date End Date Tone Cardoso MD [address] [place] [address] PCP - General Family Medicine 09/27/18 Kenneth Magaña MD [address] [place] [address] Tool Technician Cardiovascular Disease 02/05/19
--- OUTSIDE RECORDS SUMMARY | 2024-08-22 14:52 | XMS_ITS | Referral Summary ---
Author Organization [facility] Address [address] [place] [address] Care Team Providers Care Manager Underwriting Name Role Phone Tone Cardoso MD Primary Care Provider Kenneth Magaña MD Unavailable [phone] Allergies No known active allergies Medications metoprolol [...] 03/18/2019 Assessment & Plan (03/18/2019 9:40 AM ROTARY SWAGING MACHINE OPERATOR): Controlled. Continue Hyzaar. Palpitations 02/07/2019 Assessment & Plan (03/18/2019 9:40 AM ROTARY SWAGING MACHINE OPERATOR): Continue metoprolol. 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 Less likely PAF. Symptoms frequent. Will recommend 2 week Holter. In check echocardiogram. She will get thyroid panel checked with upcoming blood work. Morbid obesity 02/07/2019 Assessment & Plan (03/18/2019 9:40 AM ROTARY SWAGING MACHINE OPERATOR): Encouraged dieting and weight loss Assessment & Plan (02/07/2019 1:23 PM CDT): Encouraged dieting and weight loss Sleeping difficulties 02/07/2019 Assessment & Plan (03/18/2019 9:40 AM ROTARY SWAGING MACHINE OPERATOR): Awaiting sleep study Assessment & Plan (02/07/2019 [...] on file Legal Sex Female 8:55 AM ROTARY SWAGING MACHINE OPERATOR Gender Identity Not on file Sexual Orientation Not on file Last Filed Vital Signs Vital Sign Reading Time Taken Comments Blood Pressure 100/70 03/18/2019 9:21 AM ROTARY SWAGING MACHINE OPERATOR Pulse 72 03/18/2019 9:21 AM ROTARY SWAGING MACHINE OPERATOR Temperature 36.4 C (97.5 F) 07/31/2017 9:54 AM CDT Respiratory Rate 18 07/31/2017 9:54 AM CDT Oxygen Saturation 100% 07/31/2017 9:54 AM CDT Inhaled Oxygen Concentration - - Weight 108.4 kg (239 lb) 03/18/2019 9:21 AM ROTARY SWAGING MACHINE OPERATOR Height 165.1 cm (5' 5 ) 03/18/2019 9:21 AM ROTARY SWAGING MACHINE OPERATOR Body Mass Index 39.77 03/18/2019 9:21 AM ROTARY SWAGING MACHINE OPERATOR Plan of Treatment Not on file Procedures Procedure Name Priority Date/Time Associated Diagnosis Comments COLONOSCOPY 07/31/2017 8:49 AM CDT from Last 3 Months or Most Recently Relevant to Health Maintenance Results * COLONOSCOPY (07/31/2017 8:49 AM CDT) Anatomical Region Laterality Modality Other Narrative Procedure Note Vahe Wasserman MD - 07/31/2017 8:49 AM CDT [facility] Patient Name: Leonarda Jaen Procedure Date: 07/31/2017 8:49 AM Date of : 1950 Admit Type: Outpatient Age: 67 Gender: Female Attending MD: Vahe Wasserman M.D. Room: [facility] ENDOSCOPY CAPSULE Note Status: Finalized Procedure: Colonoscopy [...] scope was passed under direct vision.The Colonoscope [id number] was introducedthrough the anus and advanced to [...] malignant neoplasm of colon CPT copyright 2014 [employer]. All rights reserved. The codes documented in this report are preliminary and upon research pharmacist reviewmay be revised to meet current compliance requirements. Recognized by the [employer] for promoting quality in endoscopy Vahe Wasserman MD ENDOSCOPY PROCEDURES Final Re sult from Last 3 Months or Most Recently Relevant to Health Maintenance Insurance [facility] MEDICARE ADVANTAGE [facility] MEDICARE Advance Directives For more information, please contact: [phone] * Full Code (Latest Code Status on File) Date Activated Date Inactivated Comments 07/31/2017 8:21 AM 07/31/2017 12:30 PM Care Teams Manager Underwriting Relationship Specialty Start Date End Date Tone Cardoso MD [address] [facility] [address] [place] [address] PCP - General Family Medicine 09/27/18 Kenneth Magaña MD [address] [place] [address] Asset Protection Manager Cardiovascular Disease 02/05/19
--- OUTSIDE RECORDS SUMMARY | 2024-08-22 14:52 | XMS_ITS | Clinical Summary ---
Author Organization [facility] Address [address] [facility] [place] [address] Care Team Providers Care Mine Production Engineer Name Role Phone Sloan Bowers MD Unavailable [phone] Source Comments [facility],non-owned Affiliates and Associated Physician Practices is amultiple site organization consisting of ambulatory clinics and hospital sitesin [place], [place], [place] and [place]. This disclosure is being madepursuant to the Care Everywhere program and may not contain all information available regarding this patient. Last updated 18.[facility] [employer] Social History Tobacco Use Types Packs/Day Years [...] VACCINE (1 - 2023-2 5 season) 2024 DEPRESSION SCREENING 05/15/2024 INFLUENZA VACCINE (Season Ended) 2025 Respiratory Syncytial Virus (RSV) Vaccine Pt: or [...] age to complete this topic Care Teams Mine Production Engineer Relationship Specialty Start Date End Date Sloan Bowers MD [address] [place] [id number] Internal Medicine 05/18/10
--- OUTSIDE RECORDS SUMMARY | 2024-08-22 14:52 | XMS_ITS | Continuity of Care Document ---
Author Organization [facility] Address [address] [place] [address] Phone Care Team Providers Care Heel Trimmer Name Role Phone Adames OD, Dwight Unavailable Unavailable Procedures Procedure Date Contact Lens Check Eye Exam & Treatment Refraction Eye Exam & Treatment Refraction Eye Exam & Treatment Advance Directives Directive Yes / No Effective Date File Name No Information Encounters Encounter Description Practice Location Reason(s) For Visit Diagnoses Date Provider Providers Copied on Encounter [facility], [address] [place] [address] [address], [place], [place], [id number], tel:[phone] [facility] No Information Dec-1 9-201 0 Adames OD Dwight. [address], [place], [place], [facility], . tel:[phone] [facility], [address] [place] [address] [address], [place], [place], [address], tel:[phone] [facility] No Information Dec-1 4-201 0 Adames OD Dwight. [address], [place], [place], [facility], . tel:[phone] [facility], [address] [place] [address] [address], [place], [place], [address], tel:[phone] [facility] No Information Aug-0 8-200 9 Adames OD Dwight. [address], [place], [address], [place]. tel:[phone] [facility], [address], [place], [place], [address], [place] tel:[phone] [facility] No Information Mar-2 2-200 8 Adames OD Dwight. [address] [facility] , [address], [place], [address], [place]. tel:[phone] Family History Family Member Type Diagnosis Age At Onset No Information Payers Payer name Insurance type Covered democrat ID Authoriza tion(s) No Information Social History [...]
--- OUTSIDE RECORDS SUMMARY | 2024-08-22 14:52 | XMS_ITS | Clinical Summary ---
Author Organization [facility] Address [address] [facility] Attn: Epic Prelude ADT [place] [address] Care Team Providers Care Dental Assistant Name Role Phone Unavailable Primary Care Provider [...]
[2024-08-22 19:05] LABS: Influenza A QL RT-PCR Negative (Negative); Influenza B QL RT-PCR Negative (Negative); SARS-CoV-2 RNA PCR Negative (Negative)
== END 2024-08-22 14:19 | disposition home or self-care (01) ==
LOC: ANHGOSHLAB 14:19
PROVIDERS: PCP Family Medicine; Visit Provider Physician Assistant
DX: J02.9 Acute pharyngitis, unspecified (principal); Z20.822 Contact with and (suspected) exposure to COVID-19
CPT/HCPCS: 87636

== ENCOUNTER 2024-11-28 15:21 | Outpatient (CLI) | payer MEDICARE, SELFPAY ==
--- OUTSIDE RECORDS SUMMARY | 2024-11-28 15:25 | XMS_ITS | Clinical Summary ---
Author Organization [facility] Address [address] [facility] Attn: Epic Prelude ADT [place] [address] Care Team Providers Care Doctor'S Assistant Name Role Phone Unavailable Primary Care [...] (1 of 2) 2002 OSTEOPOROSIS SCREENING 2017 INFLUENZA VACCINE (#1) 2024 03/25/2024, 2021 RSV VACCINE (60+ or ) (1 - 1-dose 75+ series) 07/20/2027 Insurance RX [employer] Medicare Part D
--- OUTSIDE RECORDS SUMMARY | 2024-11-28 15:25 | XMS_ITS | Continuity of Care Document ---
Author Organization [facility] Address [address] [place] [address] Phone Care Team Providers Care Clinical Documentation Improvement Specialist Name Role Phone Adames OD, Dwight Unavailable Unavailable Procedures Procedure Date Contact Lens Check Eye Exam & Treatment Refraction Eye Exam & Treatment Refraction Eye Exam & Treatment Advance Directives Directive Yes / No Effective Date File Name No Information Encounters Encounter Description Practice Location Reason(s) For Visit Diagnoses Date Provider Providers Copied on Encounter [facility], [address] [place] [address] [address], [place], [place], [address], tel:[phone] [facility] No Information Dec-1 9-201 0 Adames OD Dwight. [address], [place], [place], [facility], . tel:[phone] [facility], [address] [place] [address] [address], [place], [place], [address], tel:[phone] [facility] No Information Dec-1 4-201 0 Adames OD Dwight. [address], [place], [place], [facility], . tel:[phone] [facility], [address] [place] [address] [address], [place], [place], [address], tel:[phone] [facility] No Information Aug-0 8-200 9 Adames OD Dwight. [address], [place], [address], [place]. tel:[phone] [facility], [address], [place], [place], [address], [place] tel:[phone] [facility] No Information Mar-2 2-200 8 Adames OD Dwight. [address] , [address], [place], [address], [place]. tel:[phone] Family History Family Member Type Diagnosis Age At Onset No Information Payers Payer name Insurance type Covered green party ID Authoriza tion(s) No Information Social [...]
--- OUTSIDE RECORDS SUMMARY | 2024-11-28 15:25 | XMS_ITS | Referral Summary ---
Author Organization [facility] Address [address] [place] [address] Care Team Providers Care Flatcar Whacker Name Role Phone Tone Cardoso MD Primary Care Provider Kenneth Magaña MD Unavailable [phone] Allergies No known active allergies Medications metoprolol [...] 03/18/2019 Assessment & Plan (03/18/2019 9:40 AM CRANBERRY SORTER): Controlled. Continue Hyzaar. Palpitations 02/07/2019 Assessment & Plan (03/18/2019 9:40 AM CRANBERRY SORTER): Continue metoprolol. 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 Less likely PAF. Symptoms frequent. Will recommend 2 week Holter. In check echocardiogram. She will get thyroid panel checked with upcoming blood work. Morbid obesity 02/07/2019 Assessment & Plan (03/18/2019 9:40 AM CRANBERRY SORTER): Encouraged dieting and weight loss Assessment & Plan (02/07/2019 1:23 PM CDT): Encouraged dieting and weight loss Sleeping difficulties 02/07/2019 Assessment & Plan (03/18/2019 9:40 AM CRANBERRY SORTER): Awaiting sleep study Assessment & Plan (02/07/2019 [...] on file Legal Sex Female 8:55 AM CRANBERRY SORTER Gender Identity Not on file Sexual Orientation Not on file Last Filed Vital Signs Vital Sign Reading Time Taken Comments Blood Pressure 100/70 03/18/2019 9:21 AM CRANBERRY SORTER Pulse 72 03/18/2019 9:21 AM CRANBERRY SORTER Temperature 36.4 C (97.5 F) 07/31/2017 9:54 AM CDT Respiratory Rate 18 07/31/2017 9:54 AM CDT Oxygen Saturation 100% 07/31/2017 9:54 AM CDT Inhaled Oxygen Concentration - - Weight 108.4 kg (239 lb) 03/18/2019 9:21 AM CRANBERRY SORTER Height 165.1 cm (5' 5) 03/18/2019 9:21 AM CRANBERRY SORTER Body Mass Index 39.77 03/18/2019 9:21 AM CRANBERRY SORTER Plan of Treatment Not on file Procedures [...] MD: Vahe Wasserman M.D. Room: [facility] ENDOSCOPY CAPSULE Note Status: Finalized Procedure: Colonoscopy [...] scope was passed under direct vision.The Colonoscope [id number] was introducedthrough the anus and advanced to [...] malignant neoplasm of colon CPT copyright 2014 [employer]. All rights reserved. The codes documented in this report are preliminary and upon animal sitter reviewmay be revised to meet current compliance requirements. Recognized by the [place] for promoting quality in endoscopy Vahe Wasserman MD ENDOSCOPY PROCEDURES Final Re sult from Last 3 Months or Most Recently Relevant to Health Maintenance Insurance [facility] Advance Directives For more information, please contact: [phone] * Full Code (Latest Code Status on File) Date Activated Date Inactivated Comments 07/31/2017 8:21 AM 07/31/2017 12:30 PM Care Teams Flatcar Whacker Relationship Specialty Start Date End Date Tone Cardoso MD [address] [facility] [address] [place] [address] PCP - General Family Medicine 09/27/18 Kenneth Magaña MD [address] [place] [address] Procurement Intern Cardiovascular Disease 02/05/19
--- OUTSIDE RECORDS SUMMARY | 2024-11-28 15:25 | XMS_ITS | Clinical Summary ---
Author Organization [facility] Address [address] [place] [address] Care Team Providers Care Handle Bender Name Role Phone Tone Cardoso MD Primary Care Provider Kenneth Magaña MD Unavailable [phone] Allergies No known active allergies Medications metoprolol [...] 03/18/2019 Assessment & Plan (03/18/2019 9:40 AM BUTADIENE COMPRESSOR OPERATOR): Controlled. Continue Hyzaar. Palpitations 02/07/2019 Assessment & Plan (03/18/2019 9:40 AM BUTADIENE COMPRESSOR OPERATOR): Continue metoprolol. 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 Less likely PAF. Symptoms frequent. Will recommend 2 week Holter. In check echocardiogram. She will get thyroid panel checked with upcoming blood work. Morbid obesity 02/07/2019 Assessment & Plan (03/18/2019 9:40 AM BUTADIENE COMPRESSOR OPERATOR): Encouraged dieting and weight loss Assessment & Plan (02/07/2019 1:23 PM CDT): Encouraged dieting and weight loss Sleeping difficulties 02/07/2019 Assessment & Plan (03/18/2019 9:40 AM BUTADIENE COMPRESSOR OPERATOR): Awaiting sleep study Assessment & Plan [...] on file Legal Sex Female 8:55 AM BUTADIENE COMPRESSOR OPERATOR Gender Identity Not on file Sexual Orientation Not on file Obstetrics History Last Filed Vital Signs Vital Sign Reading Time Taken Comments Blood Pressure 100/70 03/18/2019 9:21 AM BUTADIENE COMPRESSOR OPERATOR Pulse 72 03/18/2019 9:21 AM BUTADIENE COMPRESSOR OPERATOR Temperature 36.4 C (97.5 F) 07/31/2017 9:54 AM CDT Respiratory Rate 18 07/31/2017 9:54 AM CDT Oxygen Saturation 100% 07/31/2017 9:54 AM CDT Inhaled Oxygen Concentration - - Weight 108.4 kg (239 lb) 03/18/2019 9:21 AM BUTADIENE COMPRESSOR OPERATOR Height 165.1 cm (5' 5) 03/18/2019 9:21 AM BUTADIENE COMPRESSOR OPERATOR Body Mass Index 39.77 03/18/2019 9:21 AM BUTADIENE COMPRESSOR OPERATOR Plan of Treatment Health Maintenance Due Date [...] Laterality Modality Other Narrative Procedure Note Vahe Wasseramn MD - 07/31/2017 8:49 AM CDT [facility] Patient Name: Leonarda Jean Procedure Date: 07/31/2017 8:49 AM Date of : 1950 Admit Type: Outpatient Age: 67 Gender: Female Attending MD: Vahe Wasserman M.D. Room: [facility] ENDOSCOPY CAPSULE Note Status: Finalized [...] scope was passed under direct vision.The Colonoscope CF-[id number] was introducedthrough the anus and advanced to [...] malignant neoplasm of colon CPT copyright 2014 [employer]. All rights reserved. The codes documented in this report are preliminary and upon housing court judge reviewmay be revised to meet current compliance requirements. Recognized by the [employer] for promoting quality in endoscopy Vahe Wasserman MD ENDOSCOPY PROCEDURES Final Re sult from Last 3 Months or Most Recently Relevant to Health Maintenance Insurance [employer] MEDICARE ADVANTAGE [facility] MEDICARE Advance Directives For more information, please contact: [phone] * Full Code (Latest Code Status on File) Date Activated Date Inactivated Comments 07/31/2017 8:21 AM 07/31/2017 12:30 PM Care Teams Handle Bender Relationship Specialty Start Date End Date Tone Cardoso MD [address] [place] [address] PCP - General Family Medicine 09/27/18 Kenneth Magaña MD [address] [place] [address] Mobile Marketing Manager Cardiovascular Disease 02/05/19
--- OUTSIDE RECORDS SUMMARY | 2024-11-28 15:25 | XMS_ITS | Clinical Summary ---
Author Organization [facility] Address [address] [place] [address] Care Team Providers Care Parts Counter Clerk Name Role Phone Sloan Bowers MD Unavailable [phone] Source Comments [facility],non-owned Affiliates and Associated Physician Practices is amultiple site organization consisting of ambulatory clinics and hospital sitesin [place], [place], [place] and [place]. This disclosure is being madepursuant to the Care Everywhere program and may not contain all information available regarding this patient. Last updated 18.[facility] [employer] Social History Tobacco Use Types Packs/Day Years Used Date Smoking Tobacco: Never Assessed Comments Unknown Sex and Gender Information Value Date Recorded Sex Assigned at Not on file Legal Sex Female 6:24 AM MASTER PLANNER Gender Identity Not on file Sexual Orientation [...] SCREENING 1950 LIPID TESTING 1950 MAMMOGRAM 1950 HEPATITIS C SCREENING 07/15/1970 DTAP/TDAP/TD VACCINES (1 - Tdap) 07/20/1971 PNEUMOCOCCAL VACCINE 50+ (1 of 1 - PCV) 2002 ZOSTER VACCINE (1 of 2) 2002 COVID-19 VACCINE ( - 2023-2 5 season) 2024 DEPRESSION SCREENING 05/15/2024 INFLUENZA VACCINE (#1) 2025 Respiratory Syncytial Virus (RSV) Vaccine Pt: [...] on patient's age to complete this topic Insurance [employer] MEDICARE Care Teams Parts Counter Clerk Relationship Specialty Start Date End Date Sloan Bowesr MD [address] [place] [address] Internal Medicine 05/18/10
[2024-11-28 19:22] LABS: Add Urine Microscopic? YES; Appearance Urine Clear (Clear); Glucose Urine UA Negative (Negative); Leukocyte Esterase Ur 2+ LEU/UL (Negative); Nitrate Urine Positive (Negative); Specific Grav Ur 1.016 (1.001-1.035)
[2024-11-28 19:23] LABS: Non Pathogenic Casts 0-2
== END 2024-11-28 15:22 | disposition home or self-care (01) ==
LOC: ANHGOSHLAB 15:22
PROVIDERS: PCP Family Medicine
DX: R35.0 Frequency of micturition (principal)
CPT/HCPCS: 81001

== ENCOUNTER 2025-01-06 19:54 | Emergency (ER) | payer MEDICARE, SELFPAY ==
--- OUTSIDE RECORDS SUMMARY | 2009-12-31 12:45 | XMS_ITS | Continuity of Care Document ---
Author Organization [facility] Address [address] [place] [address] Phone Care Team Providers Care Shop Teacher Name Role Phone Adames OD, Dwight Unavailable Unavailable Procedures Procedure Date Contact Lens Check Eye Exam & Treatment Refraction Eye Exam & Treatment Refraction Eye Exam & Treatment Advance Directives Directive Yes / No Effective Date File Name No Information Encounters Encounter Description Practice Location Reason(s) For Visit Diagnoses Date Provider Providers Copied on Encounter [facility], [address] [place] [address] [address], [place], [place], [id number], tel:[phone] [facility] No Information Dec-1 9-201 0 Adames OD Dwight. [address], [place], [place], [facility], . tel:[phone] [facility], [address] [place] [address] [address], [place], [place], [id number], tel:[phone] [facility] No Information Dec-1 4-201 0 Adames OD Dwight. [address], [place], [place], [facility], . tel:[phone] [facility], [address] [place] [address] [address], [place], [place], [id number], tel:[phone] [facility] No Information Aug-0 8-200 9 Adames OD Dwight. [address], [address], [place], [address], [place]. tel:[phone] [facility], [address], [place], [place], [id number], [place] tel:[phone] [facility] No Information Mar-2 2-200 8 Adames OD Dwight. [address] , [address], [place], [address], [place]. tel:[phone] Family History Family Member Type Diagnosis Age At Onset No Information Payers Payer name Insurance type Covered republican ID Authoriza tion(s) No Information Social History Type Description Quantity Date Captured Comments Sex Female Smoking Status No Information Chief Complaint And Reason For Visit No Information Reason For Referral Reason For Referral No Information History Of Present Illness Encounter Date Complaint History Of Prese nt Illness No Information Functional Status Date Functional Assessmen t No Information Instructions Date Instruction Additional Infor mation No Information Assessments Type Assessment Date No Information Patient Care Teams Name Effective Dates (start - stop) Status Members No Information
--- OUTSIDE RECORDS SUMMARY | 2009-12-31 12:45 | XMS_ITS | Continuity of Care Document ---
Author Organization [facility] Address [address] [place] [address] Phone Care Team Providers Care Paint Spray Tender Name Role Phone Adames OD, Dwight Unavailable Unavailable Procedures Procedure Date Contact Lens Check Eye Exam & Treatment Refraction Eye Exam & Treatment Refraction Eye Exam & Treatment Advance Directives Directive Yes / No Effective Date File Name No Information Encounters Encounter Description Practice Location Reason(s) For Visit Diagnoses Date Provider Providers Copied on Encounter [facility], [address] [place] [address] [address], [place], [place], [id number], tel:[phone] [facility] No Information Dec-1 9-201 0 Adames OD Dwight. [address], [place], [place], [facility], . tel:[phone] [facility], [address] [place] [address] [address], [place], [place], [id number], tel:[phone] [facility] No Information Dec-1 4-201 0 Adames OD Dwight. [address], [place], [place], [facility], . tel:[phone] [facility], [address] [place] [address] [address], [place], [place], [id number], tel:[phone] [facility] No Information Aug-0 8-200 9 Adames OD Dwight. [address], [address], [place], [address], [place]. tel:[phone] [facility], [address], [place], [place], [address], [place] tel:[phone] [facility] No Information Mar-2 2-200 8 Adames OD Dwight. [address] , [address], [place], [address], [place]. tel:[phone] Family History Family Member Type Diagnosis Age At Onset No Information Payers Payer name Insurance type Covered alliance party ID Authoriza tion(s) No Information Social History [...]
--- NOTE | ~2025-01-06 | CT_ITS ---
EXAMINATION: CT abdomen pelvis w con DATE: 01/06/2025 22:03 INDICATION: Left lower quadrant pain TECHNIQUE: Computed tomography (CT) of the abdomen and pelvis was performed with 100 cc Omnipaque 350 intravenous contrast. The dose-length product was 1078.77 mGy-cm. Automated exposure control and iterative reconstruction technique were employed. COMPARISON: None. FINDINGS: Lung bases within normal limits. No significant pleural or pericardial effusion. Heart size normal. Status post cholecystectomy. There is fatty infiltration of the liver. The spleen, pancreas, adrenal glands and kidneys are unremarkable. Status post cholecystectomy with expected prominence of the common bile duct. Nonobstructive bowel gas pattern. Colonic diverticulosis without evidence for diverticulitis. There are bilateral total hip arthroplasties. Small fat-containing umbilical hernia. No abnormal pelvic masses or fluid collections. There is mild-moderate lower thoracic and lumbar spondylosis. No focal lytic or blastic lesions. IMPRESSION: 1. No acute abdominal abnormality. Reviewed, dictated and finalized at location O.
--- OUTSIDE RECORDS SUMMARY | 2025-01-06 17:45 | XMS_ITS | Encounter Summary ---
Author Organization [facility] Address [address] [place] [address] Care Team Providers Care Brinell Tester Name Role Phone Tone Cardoso MD Primary Care Provider Kenneth Magaña MD Unavailable [phone] Reason for Visit * Reason Comments Abdominal Pain Started last night, more on the left side, Had a UTI about 3 weeks ago and was prescribed antibiotics and they made her really sick, she wonders if she may have a yeast infection or worse Encounter Details Date Type Department Care Team (Late st Contact Info) Description 01/06/2025 5:45 PM CDT Office Visit [facility] at [address] [address] Yelitza Javier, RECREATIONAL ASSISTANT [address] [place] [address] [address] [place] [phone] Left lower quadrant abdominal pain (Primary Dx) Social History Tobacco Use Types Packs/Day Years Used Date Smoking Tobacco: Never Smokeless Tobacco: Never Alcohol Use Standard Drinks/Week Comments Yes 0 (1 standard drink = 0.6 oz pur e alcohol) Comments Unknown Sex and Gender Information Value Date Recorded Sex Assigned at Not on file Legal Sex Female 8:55 AM RERECORDING MIXER Gender Identity Not on file Sexual Orientation Not on file documented as of this encounter Last Filed Vital Signs Vital Sign Reading Time Taken Comments Blood Pressure 110/66 01/06/2025 5:48 PM CDT Pulse 72 01/06/2025 5:48 PM CDT Temperature - - Respiratory Rate 16 01/06/2025 5:48 PM CDT Oxygen Saturation 98% 01/06/2025 5:48 PM CDT Inhaled Oxygen Concentration - - Weight 101.5 kg (223 lb 12.8 oz) 01/06/2025 5:48 PM CDT Height 165.1 cm (5' 5) 01/06/2025 5:48 PM CDT Body Mass Index 37.24 01/06/2025 5:48 PM CDT documented in this encounter Plan of Treatment Not on file documented as of this encounter Procedures Procedure Name Priority Date/Time Associated Diagnosis Comments POCT URINALYSIS DIPSTICK Routine 01/06/2025 6:17 PM CDT Left lower quadrant abdominal pain documented in this encounter Results * POCT urinalysis dipstick (01/06/2025 6:17 PM CDT) Color, Urine, POC Yellow Clarity, ur, POC Clear Clear Glucose, ur, POC Negative Negative Bilirubin, ur, POC Negative Negative Ketones, ur, POC Negative Negative Specific [place], POC 1.025 1.003 - 1.030 Blood, ur, POC Negative Negative pH, ur, POC 5.5 5.0 - 8.0 Protein, ur, POC Negative Negative Urobilinogen, urine, POC 0.2 0.2 - 1.0 mg/dL Nitrite, ur, POC Negative Negative Leukocytes, ur, POC Negative Negative Lot Number [id number] Urine 01/06/2025 6:17 PM CDT Yelitza Javier RECREATIONAL ASSISTANT POINT OF CARE TEST ORDERABLES Final Result documented in this encounter Visit Diagnoses Diagnosis Left lower quadrant abdominal pain- Primary documented in this encounter Historical Medications * This list may reflect changes made after this encounter. Restasis 0.05 % ophthalmic emulsion 01/05/2025 flecainide (TAMBOCOR) 100 mg tablet Take 1 tablet (100 mg total) by mouth every 12 (twelve) hours 10/11/2024 added in this encounter Care Teams Brinell Tester Relationship Specialty Start Date End Date Tone Cardoso MD [address] [facility] [address] [place] [address] PCP - General Family Medicine 09/27/18 Kenneth Magaña MD [address] [place] [address] Divorce Lawyer Cardiovascular Disease 02/05/19 documented as of this encounter
--- OUTSIDE RECORDS SUMMARY | 2025-01-06 17:45 | XMS_ITS | Encounter Summary ---
Author Organization [facility] Address [address] [place] [address] Care Team Providers Care Film Inspector Name Role Phone Tone Cardoso MD Primary Care Provider Kenneth Magaña MD Unavailable [phone] Reason for Visit * Reason Comments Abdominal Pain Started last night, more on the left side, Had a UTI about 3 weeks ago and was prescribed antibiotics and they made her really sick, she wonders if she may have a yeast infection or worse Encounter Details Date Type Department Care Team (Late st Contact Info) Description 01/06/2025 5:45 PM CDT Office Visit [facility] at [address] [address] Yelitza Javier, DRY FOLDER CLOTH [address] [place] [address] [address] [place] [phone] Left lower quadrant abdominal pain (Primary Dx) Social History Tobacco Use Types Packs/Day Years Used Date Smoking Tobacco: Never Smokeless Tobacco: Never Alcohol Use Standard Drinks/Week Comments Yes 0 (1 standard drink = 0.6 oz pur e alcohol) Comments Unknown Sex and Gender Information Value Date Recorded Sex Assigned at Not on file Legal Sex Female 8:55 AM PROPERTY CUSTODIAN Gender Identity Not on file Sexual Orientation [...] Negative Ketones, ur, POC Negative Negative Specific [place], POC 1.025 1.003 - 1.030 Blood, ur, POC Negative Negative pH, ur, POC 5.5 5.0 - 8.0 Protein, ur, POC Negative Negative Urobilinogen, urine, POC 0.2 0.2 - 1.0 mg/dL Nitrite, ur, POC Negative Negative Leukocytes, ur, POC Negative Negative Lot Number [id number] Urine 01/06/2025 6:17 PM CDT Yelitza Javier DRY FOLDER CLOTH POINT OF CARE TEST ORDERABLES Final Result [...] 10/11/2024 added in this encounter Care Teams Film Inspector Relationship Specialty Start Date End Date Tone Cardoso MD [address] [facility] [address] [place] [address] PCP - General Family Medicine 09/27/18 Kenneth Magaña MD [address] [place] [address] News Reel Cameraman Cardiovascular Disease 02/05/19 documented as of this encounter
--- OUTSIDE RECORDS SUMMARY | 2025-01-06 19:56 | XMS_ITS | Clinical Summary ---
Author Organization [facility] Address [address] [place] [address] Care Team Providers Care Valve Seater Operator Name Role Phone Tone Cardoso MD Primary Care Provider Kenneth Magaña MD Unavailable [phone] Allergies Active Allergy Reactions Criticality Noted Date Comments Amoxicillin-Pot Clavulanate Diarrhea Low 01/07/20 Dark stool and made her feel really sick Nitrofurantoin Monohyd/M-Cryst Diarrhea Low 01/06/2025 Dark stool, made her feel bad Medications metoprolol XL (TOPROL-XL) 25 mg 24 [...] mg per tablet daily 11/19/2018 Activ e flecainide (TAMBOCOR) 100 mg tablet Take 1 tablet (100 mg total) by mouth every 12 (twelve) hours 10/11/2024 Active Restasis 0.05 % ophthalmic emulsion 01/05/2025 Active Active Problems Problem Noted Date Diagnosed Date Essential hypertension 03/18/2019 Assessment & Plan (03/18/2019 9:40 AM SHIPPING TEAM LEADER): Controlled. Continue Hyzaar. Palpitations 02/07/2019 Assessment & Plan (03/18/2019 9:40 AM SHIPPING TEAM LEADER): Continue metoprolol. 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 Less likely PAF. Symptoms frequent. Will recommend 2 week Holter. In check echocardiogram. She will get thyroid panel checked with upcoming blood work. Morbid obesity 02/07/2019 Assessment & Plan (03/18/2019 9:40 AM SHIPPING TEAM LEADER): Encouraged dieting and weight loss Assessment & Plan (02/07/2019 1:23 PM CDT): Encouraged dieting and weight loss Sleeping difficulties 02/07/2019 Assessment & Plan (03/18/2019 9:40 AM SHIPPING TEAM LEADER): Awaiting sleep study Assessment & Plan (02/07/2019 1:24 PM CDT): Will do home sleep apnea eval Encounters Date Type Department Care Team Description 01/06/2025 5:45 PM CDT Office Visit [facility] at [address] [address] Yelitza Javier NP Left lower quadrant abdominal pain (Primary Dx) from Last 3 Months Surgical [...] on file Legal Sex Female 8:55 AM SHIPPING TEAM LEADER Gender Identity Not on file Sexual Orientation Not on file Obstetrics History Last Filed Vital Signs Vital Sign Reading Time Taken Comments Blood Pressure 110/66 01/06/2025 5:48 PM CDT Pulse 72 01/06/2025 5:48 PM CDT Temperature 36.4 C (97.5 F) 07/31/2017 9:54 AM CDT Respiratory Rate 16 01/06/2025 5:48 PM CDT Oxygen Saturation 98% 01/06/2025 5:48 PM CDT Inhaled Oxygen Concentration - - Weight 101.5 kg (223 lb 12.8 oz) 01/06/2025 5:48 PM CDT Height 165.1 cm (5' 5) 01/06/2025 5:48 PM CDT Body Mass Index 37.24 01/06/2025 5:48 PM CDT Plan of Treatment Health Maintenance Due Date Last Done Comments Breast Cancer Screening-Mammogram 1950 Depression Screening 1950 Fall Risk Assessment 1950 Hepatitis C Screening 1950 Osteoporosis Screening-Bone Density Scan 1950 DTaP/Tdap/Td Vaccine (1 - Tdap) 07/20/1963 Hepatitis B Screening 1970 Pneumococcal vaccine 65+ (1 of 1 - PCV) 2002 Well Visit 65+ 2017 Covid-19 Vaccine (5 - 2023-2 5 season) 2024 11/10/2021, 04/06/2021, 07/28/2020, Additional history exists Influenza Vaccine (#1) 2025 03/25/2024 Colon Cancer Screening-Colonoscopy 08/01/2027 07/31/2017 Colon Cancer Screening-CT Colonography Discontinued 07/31/2017 Colon Cancer Screening-DNA Stool Discontinued 08/01/19 Colon Cancer Screening-FIT Discontinued 07/31/2017 Colon Cancer Screening-Sigmoidoscopy Discontinued 07/31/2017 Zoster Vaccine Completed 08/18/2021, 02/22/2021 Procedures Procedure Name Priority Date/Time Associated Diagnosis Comments POCT URINALYSIS DIPSTICK Routine 01/06/2025 6:17 PM CDT Left lower quadrant abdominal pain COLONOSCOPY 07/31/2017 8:49 AM CDT from Last 3 Months or Most Recently Relevant to Health Maintenance Results * POCT urinalysis dipstick (01/06/2025 6:17 PM CDT) Color, Urine, POC Yellow Clarity, ur, POC Clear Clear Glucose, ur, POC Negative Negative Bilirubin, ur, POC Negative Negative Ketones, ur, POC Negative Negative Specific [place], POC 1.025 1.003 - 1.030 Blood, ur, POC Negative Negative pH, ur, POC 5.5 5.0 - 8.0 Protein, ur, POC Negative Negative Urobilinogen, urine, POC 0.2 0.2 - 1.0 mg/dL Nitrite, ur, POC Negative Negative Leukocytes, ur, POC Negative Negative Lot Number [id number] Urine 01/06/2025 6:17 PM CDT Yelitza Javier NP POINT OF CARE TEST ORDERABLES Final Result * COLONOSCOPY (07/31/2017 8:49 AM CDT) Anatomical Region Laterality Modality Other Narrative Procedure Note Vahe Wasserman MD - 07/31/2017 8:49 AM CDT [facility] Patient Name: Leonarda Jean Procedure Date: 07/31/2017 8:49 AM Date of : 1950 Admit Type: Outpatient Age: 67 Gender: Female Attending MD: Vahe Wasserman M.D. Room: [facility] Note Status: Finalized Procedure: Colonoscopy Indications: Screening for colorectal malignant neoplasm Referring MD: Tone Cardoso MD Providers: Vahe R. Lisy, M.D. Impression: - Internal hemorrhoids that prolapse [...] scope was passed under direct vision.The Colonoscope [id number] was introducedthrough the anus and advanced to [...] malignant neoplasm of colon CPT copyright 2014 [employer]. All rights reserved. The codes documented in this report are preliminary and upon residential supervisor reviewmay be revised to meet current compliance requirements. Recognized by the [employer] for promoting quality in endoscopy Vahe Wasserman MD ENDOSCOPY PROCEDURES Final Re sult from Last 3 Months or Most Recently Relevant to Health Maintenance Insurance [employer] MEDICARE ADVANTAGE [employer] MEDICARE [facility] MEDICARE Address: [address] [place] [address] Advance Directives For more information, please contact: [phone] * Full Code (Latest Code Status on File) Date Activated Date Inactivated Comments 07/31/2017 8:21 AM 07/31/2017 12:30 PM Care Teams Valve Seater Operator Relationship Specialty Start Date End Date Tone Cardoso MD [address] [place] [address] PCP - General Family Medicine 09/27/18 Kenneth Magaña MD [address] [place] [address] Philosophy Faculty Member Cardiovascular Disease 02/05/19
--- OUTSIDE RECORDS SUMMARY | 2025-01-06 19:56 | XMS_ITS | Clinical Summary ---
Author Organization [facility] Address [address] [facility] Attn: Epic Prelude ADT [place] [address] Care Team Providers Care Boiler Technician Name Role Phone Unavailable Primary Care Provider [...]
--- OUTSIDE RECORDS SUMMARY | 2025-01-06 19:56 | XMS_ITS | Clinical Summary ---
Author Organization [facility] Address [address] [place] [address] Care Team Providers Care Special Education Case Manager Name Role Phone Sloan Bowers MD Unavailable [phone] Source Comments [facility],non-owned Affiliates and Associated Physician Practices is amultiple site organization consisting of ambulatory clinics and hospital sitesin [place], [place], [place] and [place]. This disclosure is being madepursuant to the Care Everywhere program and may not contain all information available regarding this patient. 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
[2025-01-06 20:15] VITALS: BP 128/68; PULSE 50; RESP 18; TEMP 36.8; O2SAT 99
[2025-01-06 20:47] VITALS: BP 112/70; RESP 16; O2SAT 99
[2025-01-06 21:11] VITALS: BP 127/68; PULSE 65; RESP 21; O2SAT 100
[2025-01-06 21:21] LABS: Add Urine Microscopic? YES; Appearance Urine Clear (Clear); Glucose Urine UA Negative (Negative); Leukocyte Esterase Ur 1+ LEU/UL (Negative); Nitrate Urine Negative (Negative); Non Pathogenic Casts 0-2; Specific Grav Ur 1.020 (1.001-1.035)
[2025-01-06 21:27] LABS: Hematocrit 41.7 % (37.0-47.0); Hemoglobin 12.8 g/dL (12.0-15.0); Immature Granulocyte Percent A 0.5 % (0-0.5); Lymphocytes Absolute Auto 2.18 K/mm3 (0.9-3.2); Mean Corpuscular HGB Conc 30.7 g/dl (32-36); Mean Corpuscular Hemoglobin 27.7 pg (26-34); Mean Corpuscular Volume 90.3 fl (80-100); Nucleated Red Blood Cells Absolute Auto 0.000 K/mm3 (0.0-0.012); Nucleated Red Blood Cells Perc 0.0 % (0.0-0.2); Platelet Count Result 324 k/mm3 (150-375); Red Blood Count 4.62 M/mm3 (4.2-5.4); White Blood Count 8.6 K/mm3 (4.5-10.0)
--- OUTSIDE RECORDS SUMMARY | 2025-01-06 21:27 | XMS_ITS | Clinical Summary ---
Author Organization [facility] Address [address] [place] [address] Care Team Providers Care Fitness And Wellness Instructor Name Role Phone Sloan Bowers MD Unavailable [phone] Source Comments [facility],non-owned Affiliates and Associated Physician Practices is amultiple site organization consisting of ambulatory clinics and hospital sitesin [place], [place], [place] and [place]. This disclosure is being madepursuant to the Care Everywhere program and may not contain all information available regarding this patient. 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
--- OUTSIDE RECORDS SUMMARY | 2025-01-06 21:27 | XMS_ITS | Clinical Summary ---
Author Organization [facility] Address [address] [facility] Attn: Epic Prelude ADT [place] [address] Care Team Providers Care Flight/Transport Nurse Name Role Phone Unavailable Primary Care Provider [...]
[2025-01-06 21:31] VITALS: BP 107/61; PULSE 54; RESP 15; O2SAT 99
[2025-01-06 21:47] LABS: Alanine Aminotransferase 11 U/L (6-35); Albumin Level 3.9 g/dL (3.5-5.1); Alkaline Phosphatase 79 U/L (38-126); Anion Gap 6 mmol/L (4-12); Aspartate Amino Transferase 24 U/L (14-36); Bilirubin,Total 0.2 mg/dL (0.2-1.3); Blood Urea Nitrogen 21 mg/dL (7-17); Calcium 9.2 mg/dL (8.4-10.2); Carbon Dioxide 30 mmol/L (22-30); Chloride 102 mmol/L (98-107); Estimated CRCL calculation 48 ml/min; Estimated Glomerular Filt Rate 49; Glucose 99 mg/dL (65-110); Lipase 81 U/L (23-300); Magnesium 2.2 mg/dL (1.6-2.3); Potassium 4.0 mmol/L (3.4-5.0); Sodium 138 mmol/L (137-145); Total Protein 7.2 g/dL (6.3-8.2)
--- NOTE | 2025-01-06 23:12 | ED_ITS ---
HPI - Abdominal Pain General Chief Complaint: Abdominal Pain Stated Complaint: abd pain Time Seen by Provider: 01/06/25 21:18 History of Present Illness HPI narrative: Patient is a 74-year-old female who presents to the emergency department this evening complaining of left lower quadrant abdominal pain which started today. Patient states that she went to an urgent care and they checked her urine and told her that it was negative since the patient was recently treated for UTI. They sent the patient here for evaluation and a CT scan to rule out diverticulitis. Patient denies any history of diverticulitis. Currently states that her pain is controlled and does not want any pain medications. No additional symptoms or concerns at this time. Related Data Home Medications ?Medication ?Instructions ?Recorded ?Confirmed ?Last Taken ?Type cyanocobalamin (vitamin B-12) 1,000 mcg subcut MONTHLY 04/01/19 11/21/24 02/11/23 History 1,000 mcg/mL injection solution cholecalciferol (vitamin D3) 25 25 mcg PO DAILY 11/21/24 02/11/23 History mcg (1,000 unit) capsule flecainide 100 mg tablet 100 mg PO Q12H 09/12/2411/12 Unknown History Allergies Allergy/AdvReac Type Severity Reaction Status Date / Time amoxicillin Allergy Intermediate Diarrhea Verified 01/06/25 20:23 nitrofurantoin (From AdvReac Intermediate Diarrhea Verified 01/06/25 20:23 Macrobid) Review of Systems 2 Review of Systems: All systems are reviewed and are negative unless stated otherwise in the HPI. [facility] Past Medical History Medical History History of stress test Gastric polyp Gastric polyps Premature ventricular complex Epigastric pain HLD (hyperlipidemia) Vitamin B12 deficiency Surgical History Surgical History Status post left hip replacement (~02/16/23) History of hip surgery (~06/22/22) Irrigation and debridement with evacuation of the right hip subcutaneous hematoma. Status post total hip replacement, right (~06/02/22) History of shoulder surgery Left S/P wrist surgery Right Status post hysterectomy with oophorectomy History of cholecystectomy Family History Family History Father Family history of coronary artery disease Grandparent Family history of lung cancer Mother Patient's mother is in good health Other Diabetes mellitus Family history of cardiovascular disease Family history of malignant neoplasm Family history of malignant neoplasm of breast Social History Social History Smoking status: Former smoker Second hand tobacco smoke exposure: No Additional smoking assessment comments: STATES SNEAKING CIGARETTS A TEEN - DENIES ALL FORMS OF TOBACCO USE Alcohol intake: never Alcohol use details: MAYBE 2/MONTH Substance use: never Substance use type: does not use Do You Feel Safe in your Home?: Yes Lack of Transportation: No Lack of Food: Never True Current Housing: I Have Housing Concerned About Future Housing: No Difficulty Paying Gas/Electric Bills: No Difficulty Paying for Meds: No Currently Unemployed: No Education: Bachelor's Degree Difficulty w/ Childcare or Family Care: No Living arrangements: alone Occupation/Education: retired Gender identity (if verbalized by the patient): Female Sexual Orientation (if Verbalized by the Patient): Straight or Heterosexual Spiritual care concerns: Yes (Yazidism) Exam 2 Narrative: General: Alert, awake, afebrile, in no acute distress. HEENT: PERRL, no rhinorrhea, no post nasal drip, oropharynx clear. Neck: Trachea midline, no JVD, no lymphadenopathy. Cardiovascular: Regular rate and rhythm, no murmurs, rubs or gallops, no peripheral edema. Respiratory: Clear to auscultation bilaterally, no tachypnea, no wheezing, no rhonchi, no rubs, no respiratory distress. Abdomen: Soft, nontender, nondistended, no rebound, no guarding, no peritoneal signs. Musculoskeletal: No joint swelling or deformity, normal muscle tone. Skin: No rashes or petechia, no signs of infection. Psychiatric: Alert and oriented, normal behavior and judgment for situation. Neurological: Alert and oriented to person, place, and time. Follows all commands. No focal deficits, speech is clear and fluent. Course Vital Signs Vital signs: Vital Signs Temperature 98.2 F 01/06/25 20:15 Pulse Rate 50 L 01/06/25 20:15 Respiratory Rate 18 01/06/25 20:15 Blood Pressure 128/68 01/06/25 20:15 Pulse Oximetry 99 01/06/25 20:15 Oxygen Delivery Room Air 01/06/25 20:15 Temperature 98.2 F 01/06/25 20:15 Pulse Rate 54 L 01/06/25 21:31 Respiratory Rate 15 01/06/25 21:31 Blood Pressure 107/61 01/06/25 21:31 Pulse Oximetry 99 01/06/25 21:31 Oxygen Delivery Room Air 01/06/25 20:15 MDM - Abdominal Pain MDM Narrative Medical decision making narrative: The patient was evaluated by myself in the emergency department. History is obtained from patient who is an independent historian and physical exam was performed. External medical records were reviewed at this time. IV was established and pertinent tests were ordered. Laboratory results obtained revealing no acute process. Urinalysis unremarkable. Imaging studies obtained included CT abdomen pelvis with IV contrast which was independently interpreted by me revealing diverticulosis without any evidence of diverticulitis, mild fecal retention otherwise no acute process, which is pending final radiology interpretation. Differential diagnosis considerations include diverticulitis, pyelonephritis, urinary tract infection, nephrolithiasis. Comorbidities impacting this visit include none. I have evaluated and discussed social determinants of health with the patient that could potentially impact subsequent diagnosis and treatment plans. On repeat assessment of the patient, reevaluation revealed that the patient is doing well and is in no acute distress. Patient symptoms have improved since she arrived to our emergency department. Repeat vital signs were all reviewed and noted to be stable. Differential diagnosis and treatment plan were discussed with the patient at bedside. Patient agrees with discussion and after shared medical decision making agrees with discharge. All questions were answered to the patient's satisfaction. Patient will follow up with her PCP in 3-5 days. Patient was provided with strict return precautions and instructed to return to the emergency department if any new or worsening symptoms develop. The patient was discharged in stable condition. Lab Data 01/06/25 21:04 01/06/25 21:04 Labs: Lab Results 01/06/25 01/06/25 Range/Units 21:04 21:10 WBC 8.6 (4.5-10.0) K/mm3 RBC 4.62 (4.2-5.4) M/mm3 Hgb 12.8 (12.0-15.0) g/dL Hct 41.7 (37.0-47.0) % MCV 90.3 (80-100) fl MCH 27.7 (26-34) pg MCHC 30.7 L (32-36) g/dl RDW 13.9 (11.5-14.5) % Plt Count 324 (150-375) k/mm3 MPV 9.4 (7.4-10.4) fl Immature Gran % (Auto) 0.5 (0-0.5) % Neut % (Auto) 60.6 (45.5-73.1) % Lymph % (Auto) 25.4 (18.3-44.2) % [place] % (Auto) 11.9 H (2.6-8.5) % Eos % (Auto) 1.5 (0-4.4) % Baso % (Auto) 0.1 L (0.2-1.2) % Lymph # (Auto) 2.18 (0.9-3.2) K/mm3 [place] # (Auto) 1.0 H (0.1-0.6) K/mm3 Eos # (Auto) 0.1 (0-0.3) K/mm3 Baso # (Auto) 0.0 (0.0-0.1) K/mm3 Abs Immat Gran (auto) 0.04 H (0.00-0.031) K/mm3 Absolute Neuts (auto) 5.2 (1.3-6.7) K/mm3 Absolute Nucleated RBC 0.000 (0.0-0.012) K/mm3 Nucleated RBC % 0.0 (0.0-0.2) % Sodium 138 (137-145) mmol/L Potassium 4.0 (3.4-5.0) mmol/L Chloride 102 (98-107) mmol/L Carbon Dioxide 30 (22-30) mmol/L Anion Gap 6 (4-12) mmol/L BUN 21 H (7-17) mg/dL Creatinine 1.10 H (0.7-1.0) mg/dL Estim Creat Clear Calc 48 ml/min Estimated GFR 49 L (59 - ) Glucose 99 (65-110) mg/dL Calcium 9.2 (8.4-10.2) mg/dL Magnesium 2.2 (1.6-2.3) mg/dL Total Bilirubin 0.2 (0.2-1.3) mg/dL AST 24 (14-36) U/L ALT 11 (6-35) U/L Alkaline Phosphatase 79 (38-126) U/L Total Protein 7.2 (6.3-8.2) g/dL Albumin 3.9 (3.5-5.1) g/dL Lipase 81 (23-300) U/L Urine Color Yellow (Yellow) Urine Appearance Clear (Clear) Urine pH 5.5 (5.0-9.0) Ur Specific [place] 1.020 (1.001-1.035) Urine Protein Negative (Negative) mg/dL Urine Glucose (UA) Negative (Negative) mg/dL Urine Ketones Negative (Negative) mg/dL Ur Blood (Man) Negative (Negative) Urine Nitrate Negative (Negative) Urine Bilirubin Negative (Negative) Urine Urobilinogen 0.2 (<2.0) mg/dL Leukocyte Esterase Rfl 1+ H (Negative) RANGEL/UL Urine RBC 0-2 (0-2) /hpf Urine WBC 6-10 H (0-3) /hpf Ur Squamous Epith Cells Occasional (Few) /hpf Urine Bacteria None seen /hpf Urine Casts 0-2 Discharge Plan Discharge Clinical Impression: Abdominal pain Patient Disposition: Home Condition: Improved Instructions: Antibiotic Form, Abdominal Pain (ED) Additional Instructions: Please follow-up with your family doctor within the next 3-5 days. Return to ED if any new or worsening symptoms develop. Patient Language: Afghan Prescriptions: No Action flecainide 100 mg tablet 100 mg PO Q12H cholecalciferol (vitamin D3) 25 mcg (1,000 unit) capsule 25 mcg PO DAILY cyanocobalamin (vitamin B-12) 1,000 mcg/mL solution 1,000 mcg SUB-Q MONTHLY Patient Comments: TAKES ON OF THE MONTH metoprolol succinate 25 mg tablet extended release 24 hr See Rx Instructions .ROUTE .COMPLEX Qty: 90 2RF Dose Instruction: TAKE ONE TABLET BY MOUTH ONCE DAILY Rx Instructions: TAKE ONE TABLET BY MOUTH ONCE DAILY losartan-hydrochlorothiazide 100-25 mg tablet 1 tablet PO DAILY Qty: 90 2RF amoxicillin-pot clavulanate [Augmentin] 500-125 mg tablet 1 tablet PO Q12H Qty: 10 0RF cyanocobalamin (vitamin B-12) 1,000 mcg/mL solution 1,000 mcg IM ONCE Qty: 1 0RF Follow-up/Referrals: Tone Cardoso MD [Primary Care Provider, [facility]] - 3 Days Time of Disposition: 00:33
== END 2025-01-07 00:50 | disposition home or self-care (01) ==
PROVIDERS: Physician Assistant; Emergency Provider Emergency Medicine; PCP Family Medicine
DX: R10.32 Left lower quadrant pain (principal); E78.5 Hyperlipidemia, unspecified; E53.8 Deficiency of other specified B group vitamins; Z96.641 Presence of right artificial hip joint; Z90.710 Acquired absence of both cervix and uterus; Z90.49 Acquired absence of other specified parts of digestive tract; Z87.891 Personal history of nicotine dependence; Z79.899 Other long term (current) drug therapy
CPT/HCPCS: 36415; 74177; 80053; 81001; 83690; 83735; 85025; 87086; 99284; Q9967

== ENCOUNTER 2025-03-14 09:05 | Outpatient (CLI) | payer MEDICARE, SELFPAY ==
--- OUTSIDE RECORDS SUMMARY | 2009-12-31 12:45 | XMS_ITS | Continuity of Care Document ---
Author Organization [facility] Address [address] [place] [address] Phone Care Team Providers Care Sales Force Developer Name Role Phone Adames OD, Dwight Unavailable Unavailable Procedures Procedure Date Contact Lens Check Eye Exam & Treatment Refraction Eye Exam & Treatment Refraction Eye Exam & Treatment Advance Directives Directive Yes / No Effective Date File Name No Information Encounters Encounter Description Practice Location Reason(s) For Visit Diagnoses Date Provider Providers Copied on Encounter [facility], [address] [place] [address] [address], [place], [place], [id number], tel:[phone] [facility] No Information Dec-1 9-201 0 Adames OD Dwight. [address], [place], [place], [facility], . tel:[phone] [facility], [address] [place] [address] [address], [place], [place], [id number], tel:[phone] [facility] No Information Dec-1 4-201 0 Adames OD Dwight. [address], [place], [place], [facility], . tel:[phone] [facility], [address] [place] [address] [address], [place], [place], [address], tel:[phone] [facility] No Information Aug-0 8-200 9 Adames OD Dwight. [address], [place], [address], [place]. tel:[phone] [facility], [address], [place], [place], [address], [place] tel:[phone] [facility] No Information Mar-2 2-200 8 Adames OD Dwight. [address] [facility] , [address], [place], [address], [place]. tel:[phone] Family History Family Member Type Diagnosis Age At Onset No Information Payers Payer name Insurance type Covered constitution party ID Authoriza tion(s) No Information Social [...]
--- OUTSIDE RECORDS SUMMARY | 2025-03-14 09:26 | XMS_ITS | Clinical Summary ---
Author Organization [facility] Address [address] [place] [address] Care Team Providers Care Gluing Crew Leader Name Role Phone Sloan Bowers MD Unavailable [phone] Source Comments [facility],non-owned Affiliates and Associated Physician Practices is amultiple site organization consisting of ambulatory clinics and hospital sitesin [place], [place], [place] and [place]. This disclosure is being madepursuant to the Care Everywhere program and may not contain all information available regarding this patient. 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
--- OUTSIDE RECORDS SUMMARY | 2025-03-14 09:26 | XMS_ITS | Clinical Summary ---
Author Organization [facility] Address [address] [place] [address] Care Team Providers Care Erp Project Manager Name Role Phone Tone Cardoso MD Primary Care Provider Kenneth Magaña MD Unavailable [phone] Allergies Active Allergy Reactions Criticality Noted Date [...] 03/18/2019 Assessment & Plan (03/18/2019 9:40 AM SUPPLY CLERK): Controlled. Continue Hyzaar. Palpitations 02/07/2019 Assessment & Plan (03/18/2019 9:40 AM SUPPLY CLERK): Continue metoprolol. 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 Less likely PAF. Symptoms frequent. Will recommend 2 week Holter. In check echocardiogram. She will get thyroid panel checked with upcoming blood work. Morbid obesity 02/07/2019 Assessment & Plan (03/18/2019 9:40 AM SUPPLY CLERK): Encouraged dieting and weight loss Assessment & Plan (02/07/2019 1:23 PM CDT): Encouraged dieting and weight loss Sleeping difficulties 02/07/2019 Assessment & Plan (03/18/2019 9:40 AM SUPPLY CLERK): Awaiting sleep study Assessment & Plan (02/07/2019 1:24 PM CDT): Will do home sleep apnea eval Encounters Date Type Department Care Team Description 01/06/2025 5:45 PM CDT Office Visit [facility] at [address] [address] Yelitza Javier NP Left lower [...] on file Legal Sex Female 8:55 AM SUPPLY CLERK Gender Identity Not on file Sexual Orientation [...] Visit 65+ 2017 Covid-19 Vaccine (5 - 2024-2 6 season) 2025 11/10/2021, 04/06/2021, 07/28/2020, Additional history exists Influenza Vaccine (#1) 2025 03/25/2024 Colon Cancer Screening-Colonoscopy 08/01/2027 07/31/2017 Colon Cancer Screening-CT Colonography Discontinued 07/31/2017 Colon Cancer Screening-DNA Stool Discontinued 08/01/19 18 Colon Cancer Screening-FIT Discontinued 07/31/2017 Colon Cancer [...] Negative Ketones, ur, POC Negative Negative Specific [place], POC 1.025 1.003 - 1.030 Blood, ur, POC Negative Negative pH, ur, POC 5.5 5.0 - 8.0 Protein, ur, POC Negative Negative Urobilinogen, urine, POC 0.2 0.2 - 1.0 mg/dL Nitrite, ur, POC Negative Negative Leukocytes, ur, POC Negative Negative Lot Number [id number] Urine 01/06/2025 6:17 PM CDT Yelitza Javier NP POINT OF CARE TEST ORDERABLES Final Result * COLONOSCOPY (07/31/2017 8:49 AM CDT) Anatomical Region Laterality Modality Other Narrative Procedure Note Vahe Wasserman MD - 07/31/2017 8:49 AM CDT [facility] [[email or web address] Patient Name: Leonarda Jean Procedure Date: 07/31/2017 8:49 AM Date of : 1950 Admit Type: Outpatient Age: 67 Gender: Female Attending MD: Vahe Wasserman M.D. Room: [facility] ENDOSCOPY CAPSULE Note Status: Finalized [...] scope was passed under direct vision.The Colonoscope [id number] was introducedthrough the anus and advanced to [...] malignant neoplasm of colon CPT copyright 2014 [employer]. All rights reserved. The codes documented in this report are preliminary and upon wind turbine engineer reviewmay be revised to meet current compliance requirements. Recognized by the [employer] for promoting quality in endoscopy Vahe Wasserman MD ENDOSCOPY PROCEDURES Final Re sult from Last 3 Months or Most Recently Relevant to Health Maintenance Insurance [employer] MEDICARE ADVANTAGE [facility] Address: [address] [address] [place] [address] [employer] [facility] Address: [address] [place] [address] Advance Directives For more information, please contact: [phone] * Full Code (Latest Code Status on File) Date Activated Date Inactivated Comments 07/31/2017 8:21 AM 07/31/2017 12:30 PM Care Teams Erp Project Manager Relationship Specialty Start Date End Date Tone Cardoso MD [address] [place] [address] PCP - General Family Medicine 09/27/18 Kenneth Magaña MD [address] [place] [address] Shipping Weigher Cardiovascular Disease 02/05/19
--- OUTSIDE RECORDS SUMMARY | 2025-03-14 09:26 | XMS_ITS | Clinical Summary ---
Author Organization [facility] Address [address] [facility] Attn: Epic Prelude ADT [place] [address] Care Team Providers Care Tree Farmer Name Role Phone Unavailable Primary Care Provider Unavailabl e Encounters Date Type Department Care Team Description 01/21/2025 External Device Data [facility] ABSTRACTION Provider, Abstract [...]
[2025-03-14 14:19] LABS: Hematocrit 42.5 % (37.0-47.0); Hemoglobin 12.9 g/dL (12.0-15.0); Mean Corpuscular HGB Conc 30.4 g/dl (32-36); Mean Corpuscular Hemoglobin 27.5 pg (26-34); Mean Corpuscular Volume 90.6 fl (80-100); Platelet Count Result 335 k/mm3 (150-375); Red Blood Count 4.69 M/mm3 (4.2-5.4); White Blood Count 6.9 K/mm3 (4.5-10.0)
[2025-03-14 14:33] LABS: Add Urine Microscopic? YES; Appearance Urine Clear (Clear); Glucose Urine UA Negative (Negative); Leukocyte Esterase Ur Trace LEU/UL (Negative); Nitrate Urine Negative (Negative); Non Pathogenic Casts 0-2; Specific Grav Ur 1.013 (1.001-1.035)
[2025-03-14 14:47] LABS: Alanine Aminotransferase 11 U/L (6-35); Albumin Level 4.3 g/dL (3.5-5.1); Alkaline Phosphatase 91 U/L (38-126); Anion Gap 7 mmol/L (4-12); Aspartate Amino Transferase 39 U/L (14-36); Bilirubin,Total 0.5 mg/dL (0.2-1.3); Blood Urea Nitrogen 20 mg/dL (7-17); Calcium 9.4 mg/dL (8.4-10.2); Carbon Dioxide 31 mmol/L (22-30); Chloride 99 mmol/L (98-107); Cholesterol 270 mg/dL (0-200); Estimated Glomerular Filt Rate 55; Glucose 75 mg/dL (65-110); HDL Direct 58 mg/dL; Potassium 3.2 mmol/L (3.4-5.0); Sodium 137 mmol/L (137-145); Total Protein 7.8 g/dL (6.3-8.2); Triglycerides 78 mg/dL (<150)
[2025-03-14 14:49] LABS: Hemoglobin A1C 5.3 % (<5.7)
[2025-03-14 15:23] LABS: Thyroid Stimulating Hormone 1.830 uIU/mL (0.465-4.680)
[2025-03-14 16:08] LABS: Vitamin B12 593.0 pg/mL (239-931)
== END 2025-03-14 09:06 | disposition home or self-care (01) ==
LOC: ANHGOSHLAB 09:06
PROVIDERS: PCP Family Medicine; Visit Provider Physician Assistant
DX: E53.8 Deficiency of other specified B group vitamins (principal); I10 Essential (primary) hypertension; E78.5 Hyperlipidemia, unspecified; F41.9 Anxiety disorder, unspecified; R73.01 Impaired fasting glucose; K21.9 Gastro-esophageal reflux disease without esophagitis; E66.9 Obesity, unspecified
CPT/HCPCS: 36415; 80053; 80061; 81001; 82607; 82746; 83036; 84443; 85027